=== PATIENT | female | born 1940 | race Caucasian/White ===

== ENCOUNTER 2016-03-30 11:32 | Outpatient (CLI) | payer MEDICARE | END 2016-03-30 11:33 | disposition home or self-care (01) | DX: G47.30 Sleep apnea, unspecified (principal); G47.8 Other sleep disorders; G47.10 Hypersomnia, unspecified; R06.83 Snoring | CPT/HCPCS: 99205; G0463 ==

== ENCOUNTER 2016-04-03 16:03 | Observation (INO) | payer MEDICARE ==
[2016-04-03] MEDS ORDERED: HYDROcod/ACETAM 5/325 MG TABLET PO PRN (19:04)
[2016-04-03] MEDS ORDERED: ALPRAZolam 0.25 MG TABLET PO PRN (19:04)
[2016-04-03] MEDS ORDERED: ACETAMINOPHEN 325 MG TABLET PO PRN (19:04)
[2016-04-03] MEDS ORDERED: SODIUM CHLORIDE FLUSH 0.9% 10 ML SYRINGE IVP PRN (19:04)
[2016-04-03] MEDS ORDERED: ONDANSETRON 4 MG/2 ML VIAL IVP PRN (19:04)
[2016-04-03] MEDS ORDERED: IOPAMIDOL-300 100 ML VIAL IVP ONE (19:55)
[2016-04-03] MEDS: ASPIRIN 325 MG TABLET PO SCH (20:10)
[2016-04-03] MEDS: LISINOPRIL 20 MG TABLET PO SCH ×2 (20:12→22:17)
[2016-04-03] MEDS ORDERED: ATORVASTATIN 40 MG TABLET PO SCH (21:00)
[2016-04-03] MEDS: INSULIN ASPART 300 UNIT/3 ML PEN SUBQ SCH (22:21)
[2016-04-03] MEDS: SODIUM CHLORIDE FLUSH 0.9% 10 ML SYRINGE IVP SCH (22:21)
[2016-04-03] MEDS: ATENOLOL 25 MG TABLET PO SCH (22:21)
[2016-04-04] MEDS: ATENOLOL 25 MG TABLET PO SCH (06:15)
[2016-04-04] MEDS: SODIUM CHLORIDE FLUSH 0.9% 10 ML SYRINGE IVP SCH (06:15)
[2016-04-04] MEDS ORDERED: PANTOPRAZOLE 40 MG TABLET PO SCH (07:00)
[2016-04-04] MEDS: LISINOPRIL 20 MG TABLET PO SCH (08:14)
[2016-04-04] MEDS: ASPIRIN 325 MG TABLET PO SCH (08:14)
[2016-04-04] MEDS: INSULIN ASPART 300 UNIT/3 ML PEN SUBQ SCH (08:15)
[2016-04-04] MEDS ORDERED: POLYETHYLENE GLYCOL 3350 17 GM PACKET PO SCH (09:00)
== END 2016-04-04 09:40 | disposition home or self-care (01) ==
DX: R20.0 Anesthesia of skin (principal); I10 Essential (primary) hypertension; E11.9 Type 2 diabetes mellitus without complications; E78.5 Hyperlipidemia, unspecified; I44.1 Atrioventricular block, second degree; I25.10 Atherosclerotic heart disease of native coronary artery without angina pectoris; E66.9 Obesity, unspecified; G47.33 Obstructive sleep apnea (adult) (pediatric); I25.2 Old myocardial infarction; Z95.0 Presence of cardiac pacemaker; Z95.5 Presence of coronary angioplasty implant and graft; Z68.37 Body mass index [BMI] 37.0-37.9, adult; Z79.84 Long term (current) use of oral hypoglycemic drugs; Z87.891 Personal history of nicotine dependence; Z66 Do not resuscitate
CPT/HCPCS: 36415; 70450; 70496; 80053; 80061; 83036; 83690; 85025; 85610; 93005; 93010; 93880; 99284; 99285; A9270; G0378; Q9967

== ENCOUNTER 2016-04-08 21:14 | Outpatient (CLI) | payer MEDICARE | END 2016-04-08 21:15 | disposition home or self-care (01) | DX: G47.33 Obstructive sleep apnea (adult) (pediatric) (principal) ==

== ENCOUNTER 2016-04-26 13:32 | Outpatient (CLI) | payer MEDICARE | END 2016-04-26 13:33 | disposition home or self-care (01) | DX: G47.33 Obstructive sleep apnea (adult) (pediatric) (principal) | CPT/HCPCS: 99213; G0463 ==

== ENCOUNTER 2016-04-28 22:30 | Outpatient (CLI) | payer MEDICARE | END 2016-04-28 22:31 | disposition home or self-care (01) | DX: Z53.9 Procedure and treatment not carried out, unspecified reason (principal) ==

== ENCOUNTER 2016-06-02 23:04 | Outpatient (CLI) | payer MEDICARE | END 2016-06-02 23:05 | disposition home or self-care (01) | DX: G47.33 Obstructive sleep apnea (adult) (pediatric) (principal); G47.61 Periodic limb movement disorder; Z68.37 Body mass index [BMI] 37.0-37.9, adult ==

== ENCOUNTER 2016-06-10 11:10 | Outpatient (CLI) | payer MEDICARE | END 2016-06-10 11:11 | disposition home or self-care (01) | DX: G47.33 Obstructive sleep apnea (adult) (pediatric) (principal); G47.61 Periodic limb movement disorder | CPT/HCPCS: 99215; G0463 ==

== ENCOUNTER 2016-07-08 11:20 | Outpatient (CLI) | payer MEDICARE | END 2016-07-08 11:21 | disposition home or self-care (01) | DX: G47.33 Obstructive sleep apnea (adult) (pediatric) (principal) | CPT/HCPCS: 99214; G0463 ==

== ENCOUNTER 2016-07-11 16:55 | Observation (INO) | payer MEDICARE ==
[2016-07-11] MEDS ORDERED: ASPIRIN CHEW 81 MG TABLET PO STA (17:28)
[2016-07-11] MEDS ORDERED: ASPIRIN CHEW 81 MG TABLET ONE (17:31)
[2016-07-11] MEDS ORDERED: IOPAMIDOL-300 100 ML VIAL IVP ONE (18:18)
[2016-07-11] MEDS ORDERED: ACETAMINOPHEN 325 MG TABLET PO STA (19:06)
[2016-07-11] MEDS ORDERED: ACETAMINOPHEN 325 MG TABLET PO ONE (19:10)
[2016-07-11] MEDS ORDERED: HYDROcod/ACETAM 5/325 MG TABLET PO PRN (19:54)
[2016-07-11] MEDS ORDERED: SODIUM CHLORIDE FLUSH 0.9% 10 ML SYRINGE IVP PRN (19:54)
[2016-07-11] MEDS ORDERED: ACETAMINOPHEN 325 MG TABLET PO PRN (19:54)
[2016-07-11] MEDS ORDERED: ONDANSETRON ODT 4 MG TABLET TL PRN (19:54)
[2016-07-11] MEDS ORDERED: ALPRAZolam 0.25 MG TABLET PO PRN (20:01)
[2016-07-11] MEDS ORDERED: metFORMIN 500 MG TABLET PO SCH (21:00)
[2016-07-11] MEDS ORDERED: NON FORMULARY MED (Simvastatin [Simvastatin] 40 MG) PO SCH (21:00)
[2016-07-11] MEDS ORDERED: ATORVASTATIN 10 MG TABLET PO SCH (21:00)
[2016-07-11] MEDS: ATENOLOL 25 MG TABLET PO SCH (21:43)
[2016-07-11] MEDS: LISINOPRIL 20 MG TABLET PO SCH (21:43)
[2016-07-11] MEDS: SODIUM CHLORIDE FLUSH 0.9% 10 ML SYRINGE IVP SCH (21:53)
[2016-07-11] MEDS ORDERED: SODIUM CHLORIDE 0.9% IV SCH (23:45)
[2016-07-11] MEDS ORDERED: SODIUM BICARBONATE IV SCH (23:45)
[2016-07-12] MEDS: SODIUM CHLORIDE FLUSH 0.9% 10 ML SYRINGE IVP SCH (04:10)
[2016-07-12] MEDS: ATENOLOL 25 MG TABLET PO SCH (05:44)
[2016-07-12] MEDS: LISINOPRIL 20 MG TABLET PO SCH (08:05)
[2016-07-12] MEDS ORDERED: ASPIRIN CHEW 81 MG TABLET PO SCH (09:00)
[2016-07-12] MEDS ORDERED: ISOSORBIDE MONONITRATE ER 30 MG TABLET PO SCH (09:00)
[2016-07-12] MEDS ORDERED: POLYETHYLENE GLYCOL 3350 17 GM PACKET PO SCH (09:00)
== END 2016-07-12 09:10 | disposition home or self-care (01) ==
DX: R07.89 Other chest pain (principal); I25.10 Atherosclerotic heart disease of native coronary artery without angina pectoris; Z95.5 Presence of coronary angioplasty implant and graft; I15.2 Hypertension secondary to endocrine disorders; E11.22 Type 2 diabetes mellitus with diabetic chronic kidney disease; N18.9 Chronic kidney disease, unspecified; G47.33 Obstructive sleep apnea (adult) (pediatric); E78.5 Hyperlipidemia, unspecified; E66.01 Morbid (severe) obesity due to excess calories; I44.1 Atrioventricular block, second degree; Z95.0 Presence of cardiac pacemaker; Z79.84 Long term (current) use of oral hypoglycemic drugs; Z79.82 Long term (current) use of aspirin; Z88.8 Allergy status to other drugs, medicaments and biological substances; Z68.36 Body mass index [BMI] 36.0-36.9, adult; Z86.73 Personal history of transient ischemic attack (TIA), and cerebral infarction without residual deficits; Z87.891 Personal history of nicotine dependence; Z66 Do not resuscitate; Z63.4 Disappearance and death of family member
CPT/HCPCS: 36415; 71020; 71275; 80048; 80053; 81001; 83690; 83880; 84484; 85025; 85610; 85730; 87086; 93005; 93010; 99284; 99285; A9270; G0378; Q9967

== ENCOUNTER 2016-07-15 08:56 | Outpatient (CLI) | payer MEDICARE | END 2016-07-15 08:57 | disposition home or self-care (01) | DX: I10 Essential (primary) hypertension (principal); E78.5 Hyperlipidemia, unspecified; E11.9 Type 2 diabetes mellitus without complications; G47.33 Obstructive sleep apnea (adult) (pediatric) ==

== ENCOUNTER 2016-08-02 16:08 | Outpatient (CLI) | payer MEDICARE | END 2016-08-02 16:09 | disposition short-term general hospital (02) | LOC: EMS 16:08 | PROVIDERS: ATTEND Surgery | DX: R07.9 Chest pain, unspecified (principal) | CPT/HCPCS: A0425; A0427 ==

== ENCOUNTER 2016-08-06 12:37 | Outpatient (CLI) | payer MEDICARE ==
[2016-08-06 18:46] LABS: ALBUMIN/GLOBULIN RATIO 1.4 (1.0-2.2); BILIRUBIN,TOTAL 0.4 mg/dL (0.2-1.0); CALCIUM 9.2 mg/dL (8.5-10.3); POTASSIUM 4.2 mmol/L (3.5-5.0); TOTAL PROTEIN 7.6 g/dL (6.7-8.2)
== END 2016-08-06 12:38 | disposition home or self-care (01) ==
LOC: LAB.F 12:37
PROVIDERS: ATTEND Physician Assistant Medical
DX: I10 Essential (primary) hypertension (principal)
CPT/HCPCS: 36415; 80053

== ENCOUNTER 2016-09-20 16:07 | Outpatient (CLI) | payer MEDICARE ==
[2016-09-20 18:11] LABS: BASOPHILS % (AUTO) 0.8 %; EOSINOPHILS # (AUTO) 0.8 10^3/uL (0.0-0.7); EOSINOPHILS % (AUTO) 12.4 %; HCT - HEMATOCRIT 39.9 % (37.0-47.0); HGB - HEMOGLOBIN 13.2 g/dL (12.0-16.0); LYMPHOCYTES # (AUTO) 1.9 10^3/uL (1.5-3.5); LYMPHOCYTES % (AUTO) 30.9 %; MEAN CORPUSCULAR HEMOGLOBIN 28.9 pg (27.0-31.0); MEAN CORPUSCULAR HGB CONC 33.1 g/dL (32.0-36.0); MEAN CORPUSCULAR VOLUME 87.4 fL (81.0-99.0); MEAN PLATELET VOLUME 8.5 fL (7.9-10.8); MONOCYTES # (AUTO) 0.7 10^3/uL (0.0-1.0); MONOCYTES % (AUTO) 11.2 %; NEUTROPHILS # (AUTO) 2.7 10^3/uL (1.5-6.6); NEUTROPHILS % (AUTO) 44.7 %; NUCLEATED RED BLOOD CELLS AUTO 0.1 /100WBC; RED BLOOD COUNT 4.56 10^6/uL (4.20-5.40); RED CELL DISTRIBUTION WIDTH 14.6 % (12.0-15.0); UNCORRECTED WHITE BLOOD COUNT 6.1 x10^3/uL; WHITE BLOOD COUNT 6.1 x10^3/uL (4.8-10.8)
[2016-09-20 18:39] LABS: ALBUMIN/GLOBULIN RATIO 1.1 (1.0-2.2); BILIRUBIN,TOTAL 1.1 mg/dL (0.2-1.0); CALCIUM 9.3 mg/dL (8.5-10.3); POTASSIUM 4.1 mmol/L (3.5-5.0); TOTAL PROTEIN 7.1 g/dL (6.7-8.2)
== END 2016-09-20 16:08 | disposition home or self-care (01) ==
LOC: LAB.F 16:07
PROVIDERS: ATTEND Physician Assistant Medical
DX: M62.81 Muscle weakness (generalized) (principal)
CPT/HCPCS: 36415; 80053; 82550; 84443; 85025

== ENCOUNTER 2016-09-22 08:00 | Outpatient (CLI) | payer MEDICARE ==
[2016-09-23 12:15] LABS: INR 1.2 (0.8-1.2); PT - PROTHROMBIN TIME 13.3 secs (9.9-12.6)
[2016-09-23 12:30] LABS: ALBUMIN/GLOBULIN RATIO 1.2 (1.0-2.2); BILIRUBIN,TOTAL 1.6 mg/dL (0.2-1.0); CALCIUM 9.4 mg/dL (8.5-10.3); CREATININE 1.1 mg/dL (0.4-1.0); TOTAL PROTEIN 6.9 g/dL (6.7-8.2)
[2016-09-24 14:51] LABS: TEST RESULT REPORT (())
== END 2016-09-22 08:01 | disposition home or self-care (01) ==
LOC: LAB.F 08:00
PROVIDERS: ATTEND Internal Medicine
DX: R94.5 Abnormal results of liver function studies (principal)
CPT/HCPCS: 36415; 80053; 81599; 85610; 86704; 86706; 86709; 86803; 87340; 87522

== ENCOUNTER 2016-10-04 07:54 | Outpatient (CLI) | payer MEDICARE ==
[2016-10-04 12:55] LABS: BILIRUBIN,TOTAL 1.2 mg/dL (0.2-1.0); CALCIUM 9.1 mg/dL (8.5-10.3); CREATININE 0.9 mg/dL (0.4-1.0); POTASSIUM 3.9 mmol/L (3.5-5.0); TOTAL PROTEIN 7.2 g/dL (6.7-8.2)
== END 2016-10-04 07:55 | disposition home or self-care (01) ==
LOC: LAB.F 07:54
PROVIDERS: ATTEND Internal Medicine
DX: R94.5 Abnormal results of liver function studies (principal)
CPT/HCPCS: 36415; 80053

== ENCOUNTER 2016-10-13 08:36 | Outpatient (CLI) | payer MEDICARE ==
[2016-10-13 12:03] LABS: BILIRUBIN,URINE NEGATIVE (NEGATIVE)
[2016-10-13 12:12] LABS: UR CULTURE IF IND NOT INDICATED; WBC,URINE 0-3 /HPF (0-5)
== END 2016-10-13 08:37 | disposition home or self-care (01) ==
LOC: LAB.F 08:36
PROVIDERS: ATTEND Physician Assistant Medical
DX: N39.0 Urinary tract infection, site not specified (principal)
CPT/HCPCS: 81001; 87086

== ENCOUNTER 2016-10-29 08:00 | Outpatient (CLI) | payer MEDICARE ==
[2016-10-29 17:47] LABS: BILIRUBIN,URINE NEGATIVE (NEGATIVE)
[2016-10-29 18:01] LABS: UR CULTURE IF IND INDICATED
== END 2016-10-29 08:01 | disposition home or self-care (01) ==
LOC: LAB.F 08:00
PROVIDERS: ATTEND Physician Assistant Medical
DX: N39.0 Urinary tract infection, site not specified (principal)
CPT/HCPCS: 81001; 87086

== ENCOUNTER 2016-11-05 07:41 | Outpatient (CLI) | payer MEDICARE ==
[2016-11-05 12:59] LABS: BILIRUBIN,URINE NEGATIVE (NEGATIVE)
[2016-11-05 13:05] LABS: UR CULTURE IF IND INDICATED
[2016-11-05 15:16] LABS: ALBUMIN/GLOBULIN RATIO 1.3 (1.0-2.2); BILIRUBIN,TOTAL 0.9 mg/dL (0.2-1.0); CREATININE 0.8 mg/dL (0.4-1.0); POTASSIUM 3.8 mmol/L (3.5-5.0)
== END 2016-11-05 07:42 | disposition home or self-care (01) ==
LOC: LAB.F 07:41
PROVIDERS: ATTEND Physician Assistant Medical
DX: N39.0 Urinary tract infection, site not specified (principal); R94.5 Abnormal results of liver function studies
CPT/HCPCS: 36415; 80053; 81001; 87086

== ENCOUNTER 2017-01-04 00:40 | Emergency (ER) | payer MEDICARE ==
[2017-01-04 01:15] LABS: BASOPHILS # (AUTO) 0.1 10^3/uL (0.0-0.1); BASOPHILS % (AUTO) 1.1 %; EOSINOPHILS # (AUTO) 0.2 10^3/uL (0.0-0.7); EOSINOPHILS % (AUTO) 3.4 %; HCT - HEMATOCRIT 44.1 % (37.0-47.0); HGB - HEMOGLOBIN 14.5 g/dL (12.0-16.0); LYMPHOCYTES # (AUTO) 2.1 10^3/uL (1.5-3.5); LYMPHOCYTES % (AUTO) 36.1 %; MEAN CORPUSCULAR HEMOGLOBIN 28.8 pg (27.0-31.0); MEAN CORPUSCULAR HGB CONC 32.8 g/dL (32.0-36.0); MEAN CORPUSCULAR VOLUME 87.8 fL (81.0-99.0); MEAN PLATELET VOLUME 8.2 fL (7.9-10.8); MONOCYTES # (AUTO) 0.6 10^3/uL (0.0-1.0); MONOCYTES % (AUTO) 10.8 %; NEUTROPHILS # (AUTO) 2.8 10^3/uL (1.5-6.6); NEUTROPHILS % (AUTO) 48.6 %; RED BLOOD COUNT 5.02 10^6/uL (4.20-5.40); RED CELL DISTRIBUTION WIDTH 13.8 % (12.0-15.0); UNCORRECTED WHITE BLOOD COUNT 5.8 x10^3/uL; WHITE BLOOD COUNT 5.8 x10^3/uL (4.8-10.8)
[2017-01-04 01:29] LABS: ALBUMIN/GLOBULIN RATIO 1.2 (1.0-2.2); BILIRUBIN,TOTAL 0.6 mg/dL (0.2-1.0); CALCIUM 9.5 mg/dL (8.5-10.3); CREATININE 0.9 mg/dL (0.4-1.0); POTASSIUM 3.8 mmol/L (3.5-5.0)
--- NOTE | 2017-01-04 01:39 | XRAY Preliminary Report ---
Exam: XR CHEST 1 VIEW IMPRESSION: No acute process seen in the chest. [facility] SITE ID: [id number]
--- NOTE | 2017-01-04 01:42 | XRAY Report ---
EXAM: CHEST RADIOGRAPHY EXAM DATE: 01/04/2017 01:27 AM. CLINICAL HISTORY: Chest pain. COMPARISON: 07/11/2016 x-ray and CT. TECHNIQUE: 1 view. FINDINGS: Lungs/Pleura: No focal opacities evident. No pleural effusion. No pneumothorax. Mediastinum: Within exam limitations, the cardiomediastinal contour is normal. Other: Stable left pacemaker. IMPRESSION: No acute process seen in the chest. [facility] Referring Provider Line: [phone] SITE ID: [id number]
--- NOTE | 2017-01-04 01:57 | ED Physician Documentation ---
PD HPI CHEST PAIN - Stated complaint Stated Complaint: KACEY SHOULDER BLADE PAIN - Chief complaint Chief Complaint: Cardiac - History obtained from History obtained from: Patient - History of Present Illness Timing - onset: How many hours ago (3-4) Timing - onset during: Rest (lying in bed) Timing - duration: Hours Timing - details: Abrupt onset, Constant, Waxing and waning Pain level now: 6 Quality: Pain Location: Other (band-like around lower chest and upper abdomen) Radiation: Back Improved by: Nothing Worsened by: No: Exertion, Inspiration, Eating, Movement, Palpation, Position Associated symptoms: Nausea. No: Shortness of air, Diaphoresis, Vomiting, Palpitations Similar symptoms before: Has not had sx before Recently seen: Not recently seen Review of Systems Constitutional: reports: Reviewed and negative Cardiac: reports: Chest pain / pressure. denies: Palpitations, Pedal edema, Calf pain Respiratory: reports: Reviewed and negative GI: reports: Nausea. denies: Abdominal Pain, Vomiting : reports: Frequency. 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 Cardiovascular: Coronary stent, Pacemaker - Present Medications Home Medications: Ambulatory Orders Medication Instructions Recorded Confirmed Atenolol 25 mg PO TID 07/28/12 01/04/17 Lisinopril [Prinivil] 20 mg PO BID 07/28/12 01/04/17 ALPRAZolam [Xanax] 0.25 mg TID PRN 04/03/16 01/04/17 Aspirin Chewable [[place] 81 mg PO DAILY 07/11/16 01/04/17 Aspirin] Sertraline [Zoloft] 25 mg ORAL DAILY 01/04/17 01/04/17 - Allergies Allergies/Adverse Reactions: Allergies Allergy/AdvReac Type Severity Reaction Status Date / Time nitroglycerin AdvReac Unknown severe Verified 04/03/16 16:16 hypotension - Social History Does the pt smoke?: No Smoking Status: Never smoker Does the pt drink ETOH?: No Does the pt have substance abuse?: No - Immunizations Immunizations are current?: Yes - POLST Patient has POLST: No PD ED PE NORMAL - Vitals Vital signs reviewed: Yes - General General: Alert and oriented X 3, No acute distress, Well developed/nourished - Cardiac Cardiac: RRR, No murmur, No gallop, No rub - Respiratory Respiratory: No respiratory distress, Clear bilaterally - Abdomen Abdomen: Soft, Non distended - Back Back: No CVA TTP - Derm Derm: Normal color, Warm and dry, No rash - Extremities Extremities: No edema - Neuro Neuro: Alert and oriented X 3 PD ED PE EXPANDED - Abdomen Abdomen: Tender to palpation (mild epigastric tenderness to deep palpation). No : Rebound, Guarding, Mass Results - Vitals Vitals: Vital Signs - 24 hr 01/04/17 01/04/17 01/04/17 00:47 01:15 01:40 Temperature 36.3 C L Heart Rate 63 60 Respiratory 18 16 Rate Blood Pressure 211/107 H 156/89 H 159/89 H O2 Saturation 99 95 01/04/17 01/04/17 01/04/17 03:02 04:47 04:52 Temperature Heart Rate 60 60 Respiratory 20 20 Rate Blood Pressure 186/89 H 156/92 H O2 Saturation 95 95 Oxygen O2 Source Room air - EKG (time done) No standard instances Rate: Rate (enter#) (60) Rhythm: Paced (atrial) [place]: Normal Intervals: Normal [place] QRS: Normal Ischemia: Normal ST segments - Labs Labs: Laboratory Tests 01/04/17 01/04/17 01/04/17 01:00 01:00 01:00 WBC 5.8 RBC 5.02 Hgb 14.5 Hct 44.1 MCV 87.8 MCH 28.8 MCHC 32.8 RDW 13.8 Plt Count 182 MPV 8.2 Neut # 2.8 Lymph # 2.1 [place] # 0.6 Eos # 0.2 Baso # 0.1 Absolute Nucleated RBC 0.00 Nucleated RBC % 0.0 Sodium 135 Potassium 3.8 Chloride 97 L Carbon Dioxide 26 Anion Gap 12.0 BUN 13 Creatinine 0.9 Estimated GFR (MDRD) 61 L Glucose 105 H Calcium 9.5 Total Bilirubin 0.6 AST 68 H ALT 71 H Alkaline Phosphatase 79 Troponin I < 0.04 Total Protein 8.0 Albumin 4.4 Globulin 3.6 Albumin/Globulin Ratio 1.2 Lipase 42 - Rads (name of study) chest xray Radiology: Prelim report reviewed, See rad report abd. US Radiology: Prelim report reviewed, See rad report PD MEDICAL DECISION MAKING - ED course Complexity details: reviewed results, re-evaluated patient, considered differential, d/w patient ED course: nondiagnostic test results. results d/w patient, including mildly elevated LFTs and abnormal appearance of liver on US (neither of which are likely to explain symptoms). she reported no relief with toradol, but declined any other medications in ED and as rx. will return if worse in any way and will pursue follow up with her doctor Departure - Departure Disposition: 01 Home, Self Care Clinical Impression: Chest pain Qualifiers: Chest pain type: unspecified Qualified Code(s): R07.9 - Chest pain, unspecified Abdominal pain Qualifiers: Abdominal location: epigastric Qualified Code(s): R10.13 - Epigastric pain Condition: Good Instructions: ED Abdominal Pain Unkn Cause, ED Chest Pain Atypical Unkn Cause Follow-Up: Hodan Murdock PA-C [Primary Care Provider] - Discharge Date/Time: 01/04/17 05:09
[2017-01-04] MEDS ORDERED: KETOROLAC 60 MG/2 ML VIAL IVP STA (03:06)
[2017-01-04] MEDS ORDERED: KETOROLAC 30 MG/ML VIAL ONE (03:22)
--- NOTE | 2017-01-04 04:45 | Ultrasound Preliminary Report ---
Exam: US ABDOMEN LIMITED IMPRESSION: 1. Gallbladder appears normal. 2. Suspect chronic liver disease. [facility] SITE ID: [id number]
--- NOTE | 2017-01-04 04:47 | Ultrasound Report ---
EXAM: ABDOMEN ULTRASOUND LIMITED, RUQ EXAM DATE: 01/04/2017 04:26 AM. CLINICAL HISTORY: Abdominal pain. COMPARISON: 08/10/2012. TECHNIQUE: Real-time scanning was performed with static images obtained. FINDINGS: Liver: Echogenic and coarse without gross focal abnormality seen. Main portal vein flow: Hepatopetal. Gallbladder: Normal. No stones, wall thickening, or sonographic Rawls's sign. Biliary System: CBD measures 4 mm. No intrahepatic or extrahepatic ductal dilatation. Other: Visualized portions of the right kidney are unremarkable. IMPRESSION: 1. Gallbladder appears normal. 2. Suspect chronic liver disease. [facility] Referring Provider Line: [phone] SITE ID: [id number]
[2017-01-04 04:53] VITALS: BP 156/92
== END 2017-01-04 05:09 | disposition home or self-care (01) ==
LOC: ED 00:40
DX: R07.9 Chest pain, unspecified (principal); I10 Essential (primary) hypertension; I25.2 Old myocardial infarction; E11.9 Type 2 diabetes mellitus without complications; Z79.82 Long term (current) use of aspirin; Z95.0 Presence of cardiac pacemaker; Z95.5 Presence of coronary angioplasty implant and graft
CPT/HCPCS: 36415; 71010; 76705; 80053; 83690; 84484; 85025; 93005; 96374; 99283; 99284

== ENCOUNTER 2017-05-04 08:19 | Outpatient (CLI) | payer MEDICARE ==
[2017-05-04 12:16] LABS: ALBUMIN/GLOBULIN RATIO 1.2 (1.0-2.2); BILIRUBIN,TOTAL 0.6 mg/dL (0.2-1.0); CALCIUM 9.3 mg/dL (8.5-10.3); CREATININE 0.8 mg/dL (0.4-1.0); TOTAL PROTEIN 7.4 g/dL (6.7-8.2)
== END 2017-05-04 08:20 | disposition home or self-care (01) ==
LOC: LAB.F 08:19
PROVIDERS: ATTEND Physician Assistant Medical
DX: I10 Essential (primary) hypertension (principal)
CPT/HCPCS: 36415; 80053

== ENCOUNTER 2017-08-17 10:28 | Outpatient (CLI) | payer MEDICARE ==
[2017-08-17 17:21] LABS: BASOPHILS % (AUTO) 0.5 %; EOSINOPHILS # (AUTO) 0.1 10^3/uL (0.0-0.7); EOSINOPHILS % (AUTO) 2.8 %; HGB - HEMOGLOBIN 13.9 g/dL (12.0-16.0); LYMPHOCYTES # (AUTO) 1.7 10^3/uL (1.5-3.5); LYMPHOCYTES % (AUTO) 33.4 %; MEAN CORPUSCULAR HEMOGLOBIN 29.2 pg (27.0-31.0); MEAN CORPUSCULAR HGB CONC 32.8 g/dL (32.0-36.0); MEAN CORPUSCULAR VOLUME 88.9 fL (81.0-99.0); MEAN PLATELET VOLUME 8.3 fL (7.9-10.8); MONOCYTES # (AUTO) 0.4 10^3/uL (0.0-1.0); MONOCYTES % (AUTO) 8.5 %; NEUTROPHILS # (AUTO) 2.8 10^3/uL (1.5-6.6); NEUTROPHILS % (AUTO) 54.8 %; PLT - PLATELET COUNT 252 10^3/uL (130-450); RED BLOOD COUNT 4.77 10^6/uL (4.20-5.40); RED CELL DISTRIBUTION WIDTH 13.5 % (12.0-15.0)
[2017-08-17 18:01] LABS: ALBUMIN/GLOBULIN RATIO 1.2 (1.0-2.2); ALKALINE PHOSPHATASE 58 IU/L (42-121); ALT ALANINE AMINOTRANSFERASE 18 IU/L (10-60); AST ASPARTATE AMINOTRANSFERASE 26 IU/L (10-42); BUN - BLOOD UREA NITROGEN 18 mg/dL (6-20); CHOL/HDL RATIO 7.5 (<4.4); CHOLESTEROL 314 mg/dL; CREATININE 0.8 mg/dL (0.4-1.0); GFR - MDRD 70 (>89); HDL CHOLESTEROL 42 mg/dL; LDL CHOLESTEROL,CALCULATED 242 mg/dL; LDL/HDL RATIO 5.8 (<4.4); TOTAL PROTEIN 7.4 g/dL (6.7-8.2); VLDL CHOLESTEROL 30 mg/dL
[2017-08-17 18:04] LABS: CALCIUM 9.3 mg/dL (8.5-10.3); CARBON DIOXIDE - CO2 29 mmol/L (21-32); CHLORIDE 95 mmol/L (101-111); GLUCOSE 100 mg/dL (70-100); SODIUM 131 mmol/L (135-145)
[2017-08-17 18:55] LABS: HB2 TOTAL 15.3 g/dL; HEMOGLOBIN A1C 0.64 g/dL
== END 2017-08-17 10:29 | disposition home or self-care (01) ==
LOC: LAB.F 10:28
PROVIDERS: ATTEND Physician Assistant Medical
DX: I10 Essential (primary) hypertension (principal); E11.9 Type 2 diabetes mellitus without complications; E78.5 Hyperlipidemia, unspecified
CPT/HCPCS: 36415; 80053; 80061; 83036; 83721; 85025

== ENCOUNTER 2017-09-23 08:57 | Outpatient (CLI) | payer MEDICARE ==
[2017-09-23 17:33] LABS: ALBUMIN 3.8 g/dL (3.2-5.5); ALBUMIN/GLOBULIN RATIO 1.2 (1.0-2.2); BILIRUBIN,TOTAL 0.9 mg/dL (0.2-1.0); CALCIUM 9.2 mg/dL (8.5-10.3); CREATININE 0.9 mg/dL (0.4-1.0)
== END 2017-09-23 08:58 | disposition home or self-care (01) ==
LOC: LAB.F 08:57
PROVIDERS: ATTEND Physician Assistant Medical
DX: Z51.81 Encounter for therapeutic drug level monitoring (principal); Z79.899 Other long term (current) drug therapy
CPT/HCPCS: 36415; 80053

== ENCOUNTER 2017-11-20 18:57 | Emergency (ER) | payer MEDICARE ==
[2017-11-20] MEDS ORDERED: ACETAMINOPHEN 325 MG TABLET PO STA (19:20)
--- NOTE | 2017-11-20 19:21 | ED Physician Documentation ---
PD HPI BACK PAIN - Stated complaint Stated Complaint: BILAT LEG NUMBNESS - Chief complaint Chief Complaint: Back Pain - History obtained from History obtained from: Patient, Family - History of Present Illness Timing - onset: Other (76-year-old woman with history of right-sided sciatica presents with 2 weeks of increasing but intermittent and migratory low back pain with bilateral tingling and numbness of both extremities not affecting the saddle area or having any bowel or bladder function issues. There is no associated fever. She had what felt like a very bad charley horse in her left leg last night which kept her from sleeping. 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 Cardiovascular: Coronary stent, Pacemaker - Present Medications Home Medications: Ambulatory Orders Medication Instructions Recorded Confirmed Atenolol 25 mg PO TID 07/28/12 01/04/17 Lisinopril [Prinivil] 20 mg PO BID 07/28/12 01/04/17 ALPRAZolam [Xanax] 0.25 mg TID PRN 04/03/16 01/04/17 Aspirin Chewable [[place] 81 mg PO DAILY 07/11/16 01/04/17 Aspirin] Sertraline [Zoloft] 25 mg ORAL DAILY 01/04/17 01/04/17 Nitrofurantoin Monohyd/M-Cryst 100 mg PO BID #10 capsule 11/20/17 [Macrobid 100 mg Capsule] predniSONE [Deltasone] 20 mg PO [id number] #15 tab 11/20/17 - Allergies Allergies/Adverse Reactions: Allergies Allergy/AdvReac Type Severity Reaction Status Date / Time nitroglycerin AdvReac Unknown severe Verified 11/20/17 19:06 hypotension - Social History Does the pt smoke?: No Smoking Status: Never smoker Does the pt drink ETOH?: No Does the pt have substance abuse?: No - Immunizations Immunizations are current?: Yes - POLST Patient has POLST: No PD ED PE NORMAL - Vitals Vital signs reviewed: Yes - General General: Alert and oriented X 3, No acute distress - HEENT HEENT: PERRL, EOMI - Neck Neck: Supple, no meningeal sign, No bony TTP - Abdomen Abdomen: Normal bowel sounds, Soft, Non tender - Back Back: No CVA TTP, No spinal TTP - Extremities Extremities: Other (The patient has equal and normal Achilles and patellar reflexes bilaterally. Normal sensation in all areas of the legs. Patient denies saddle anesthesia. Normal strength in flexion-extension at the ankles, knees, and flexion of the hips.) - Neuro Neuro: Alert and oriented X 3, Normal speech Results - Vitals Vitals: Vital Signs - 24 hr 11/20/17 11/20/17 19:03 22:06 Temperature 36.2 C L 36.5 C Heart Rate 76 65 Respiratory 16 15 Rate Blood Pressure 185/87 H 140/92 H O2 Saturation 99 100 Oxygen O2 Source Room air - Labs Labs: Laboratory Tests 11/20/17 11/20/17 11/20/17 19:20 19:25 19:50 WBC 6.4 RBC 4.31 Hgb 13.0 Hct 38.3 MCV 89.0 MCH 30.2 MCHC 33.9 RDW 13.4 Plt Count 224 MPV 7.2 L Neut # (Auto) 3.5 Lymph # (Auto) 2.1 [place] # (Auto) 0.5 Eos # (Auto) 0.2 Baso # (Auto) 0.1 Absolute Nucleated RBC 0.00 Nucleated RBC % 0.1 Sodium 131 L Potassium 3.8 Chloride 96 L Carbon Dioxide 26 Anion Gap 9.0 BUN 20 Creatinine 0.9 Estimated GFR (MDRD) 61 L Glucose 110 H Calcium 9.7 Total Bilirubin 0.5 AST 28 ALT 18 Alkaline Phosphatase 56 Total Protein 7.7 Albumin 4.4 Globulin 3.3 Albumin/Globulin Ratio 1.3 Lipase 39 Urine Color YELLOW Urine Clarity CLEAR Urine pH 7.5 Ur Specific [place] 1.010 Urine Protein NEGATIVE Urine Glucose (UA) NEGATIVE Urine Ketones NEGATIVE Urine Occult Blood NEGATIVE Urine Nitrite NEGATIVE Urine Bilirubin NEGATIVE Urine Urobilinogen 0.2 (NORMAL) Ur Leukocyte Esterase TRACE H Urine RBC 6-10 H Urine WBC 11-25 H Urine WBC Clumps PRESENT Ur Squamous Epith Cells FEW Squamous Urine Bacteria Moderate H Ur Microscopic Review INDICATED Urine Culture Comments INDICATED - Rads (name of study) L spine CT Radiology: EMP read contemporaneously (Advanced multilevel DDD and facet arthropathy with severe stenosis at L2-L3 and L3-L4 and mild to moderate multilevel bony neural foraminal narrowing.) PD MEDICAL DECISION MAKING - Sepsis Event Vital Signs: Vital Signs - 24 hr 11/20/17 11/20/17 19:03 22:06 Temperature 36.2 C L 36.5 C Heart Rate 76 65 Respiratory 16 15 Rate Blood Pressure 185/87 H 140/92 H O2 Saturation 99 100 Oxygen O2 Source Room air Departure - Departure Disposition: 01 Home, Self Care Clinical Impression: Cystitis Spinal stenosis Qualifiers: Spinal region: lumbar Neurogenic claudication status: with neurogenic claudication Qualified Code(s): M48.062 - Spinal stenosis, lumbar region with neurogenic claudication Condition: Good Record reviewed to determine appropriate education?: Yes Prescriptions: Nitrofurantoin Monohyd/M-Cryst [Macrobid 100 mg Capsule] 100 mg PO BID #10 capsule predniSONE [Deltasone] 20 mg PO [id number] #15 tab Comments: Followup with a spinal surgeon, perhaps Gerald Santana in [place], his phone is [phone] Your blood pressure was elevated today on check into the emergency department. This does not mean that you have hypertension, it is a common phenomenon to come to the emergency department and have elevated blood pressure. I recommend that you see your primary care physician within the week to have it rechecked when you are feeling better. Discharge Date/Time: 11/20/17 22:14
[2017-11-20 19:33] LABS: BILIRUBIN,URINE NEGATIVE (NEGATIVE); GLUCOSE, URINE (UA) NEGATIVE (NEGATIVE); KETONES,URINE (UA) NEGATIVE (NEGATIVE); LEUKOCYTE ESTERASE, URINE TRACE (NEGATIVE); NITRITE,URINE NEGATIVE (NEGATIVE); OCCULT BLOOD,URINE NEGATIVE (NEGATIVE); PH,URINE 7.5 PH (5.0-7.5); PROTEIN,URINE NEGATIVE (NEGATIVE); UROBILINOGEN,URINE 0.2 (NORMAL) E.U./dL (NORMAL)
[2017-11-20 19:36] LABS: CLARITY,URINE CLEAR (CLEAR)
[2017-11-20 19:41] LABS: BACTERIA,URINE Moderate /HPF (None Seen); SQUAMOUS EPITHELIAL CELL,UR FEW Squamous (<= Few); WBC CLUMPS,URINE PRESENT
[2017-11-20 20:05] LABS: BASOPHILS # (AUTO) 0.1 10^3/uL (0.0-0.1); BASOPHILS % (AUTO) 0.8 %; EOSINOPHILS # (AUTO) 0.2 10^3/uL (0.0-0.7); EOSINOPHILS % (AUTO) 3.3 %; LYMPHOCYTES # (AUTO) 2.1 10^3/uL (1.5-3.5); LYMPHOCYTES % (AUTO) 33.5 %; MEAN CORPUSCULAR HEMOGLOBIN 30.2 pg (27.0-31.0); MEAN CORPUSCULAR HGB CONC 33.9 g/dL (32.0-36.0); MEAN PLATELET VOLUME 7.2 fL (7.9-10.8); MONOCYTES # (AUTO) 0.5 10^3/uL (0.0-1.0); MONOCYTES % (AUTO) 7.6 %; NEUTROPHILS # (AUTO) 3.5 10^3/uL (1.5-6.6); NEUTROPHILS % (AUTO) 54.8 %; PLT - PLATELET COUNT 224 10^3/uL (130-450); RED BLOOD COUNT 4.31 10^6/uL (4.20-5.40); RED CELL DISTRIBUTION WIDTH 13.4 % (12.0-15.0); WHITE BLOOD COUNT 6.4 x10^3/uL (4.8-10.8)
[2017-11-20 20:18] LABS: ALBUMIN 4.4 g/dL (3.2-5.5); ALBUMIN/GLOBULIN RATIO 1.3 (1.0-2.2); BILIRUBIN,TOTAL 0.5 mg/dL (0.2-1.0); CALCIUM 9.7 mg/dL (8.5-10.3); CREATININE 0.9 mg/dL (0.4-1.0); TOTAL PROTEIN 7.7 g/dL (6.7-8.2)
--- NOTE | 2017-11-20 21:42 | CT Report ---
Reason: back pain w bilat neuropathy Procedure Date: 11/20/2017 Accession Number: [id number] / [id number] Procedure: CT - Lumbar Spine W/O CPT Code: FULL RESULT: EXAM: CT LUMBAR SPINE WITHOUT CONTRAST EXAM DATE: 11/20/2017 08:49 PM. CLINICAL HISTORY: Back pain with bilateral neuropathy. COMPARISONS: CT abdomen/pelvis 08/10/2012. TECHNIQUE: Thin-section axial images were acquired of the lumbar spine from T12 to S1 without contrast. Post-processing: Coronal and sagittal reformats. Other: None. In accordance with CT protocol optimization, one or more of the following dose reduction techniques were utilized for this exam: automated exposure control, adjustment of mA and/or KV based on patient size, or use of iterative reconstructive technique. FINDINGS: Alignment: Mild left convex measuring approximately 7 degrees centered at L4-L5. Grade 1 retrolisthesis of L1 on L2 measuring 4 mm. Bones: Five rxn-sah-nmldmui lumbar vertebral bodies are present. No fractures or bone lesions. Disk Levels/Facets: T12-L1: Moderate disk height loss. Disk osteophyte complex and mild right facet arthropathy causing mild bony central canal stenosis. No significant bony neural foraminal narrowing. L1-L2: Moderate disk height loss. Disk osteophyte complex and mild bilateral facet arthropathy superimposed on grade 1 retrolisthesis causing moderate bony central canal stenosis and mild bilateral bony neural foraminal narrowing. L2-L3: Moderate disk height loss. Disk osteophyte complex, moderate bilateral facet arthropathy, and ligamentum flavum hypertrophy causing severe bony central canal stenosis and moderate left and mild right bony neural foraminal narrowing. L3-L4: Mild disk height loss. Disk osteophyte complex, moderate to severe bilateral facet arthropathy, and ligament of flavum hypertrophy causing severe bony central canal stenosis and mild bilateral bony neural foraminal narrowing. L4-L5: Moderate to severe disk height loss. Disk osteophyte complex, moderate right and mild left facet arthropathy, and ligamentum flavum hypertrophy causing moderate to severe bony central canal stenosis and mild bilateral bony neural foraminal narrowing. L5-S1: Severe disk height loss. Disk osteophyte complex and moderate to severe bilateral facet arthropathy causing mild bony central canal stenosis and moderate bilateral bony neural foraminal narrowing. Other: Extensive atherosclerotic calcifications within the aorta and visualized iliac arteries. IMPRESSION: 1. Advanced multilevel degenerative disk disease and facet arthropathy, as detailed above, with associated severe bony central canal stenosis at L2-L3 and L3-L4 and vyqt-mm-mlsdexly multilevel bony neural foraminal narrowing. 2. No acute bony abnormality. [facility]
[2017-11-20 22:14] VITALS: BP 140/92
== END 2017-11-20 22:14 | disposition home or self-care (01) ==
LOC: ED 18:57
DX: M51.36 Other intervertebral disc degeneration, lumbar region (principal); M48.062 Spinal stenosis, lumbar region with neurogenic claudication; N30.90 Cystitis, unspecified without hematuria; I10 Essential (primary) hypertension; E11.9 Type 2 diabetes mellitus without complications; Z79.82 Long term (current) use of aspirin
CPT/HCPCS: 36415; 72131; 80053; 81001; 83690; 85025; 87086; 99283; A9270; 81003

== ENCOUNTER 2017-12-20 08:26 | Outpatient (CLI) | payer MEDICARE ==
[2017-12-20 18:48] LABS: ALBUMIN 3.9 g/dL (3.2-5.5); ALBUMIN/GLOBULIN RATIO 1.2 (1.0-2.2); ALKALINE PHOSPHATASE 47 IU/L (42-121); ALT ALANINE AMINOTRANSFERASE 19 IU/L (10-60); AST ASPARTATE AMINOTRANSFERASE 23 IU/L (10-42); BILIRUBIN,TOTAL 0.7 mg/dL (0.2-1.0); BUN - BLOOD UREA NITROGEN 18 mg/dL (6-20); CALCIUM 9.1 mg/dL (8.5-10.3); CARBON DIOXIDE - CO2 28 mmol/L (21-32); CHLORIDE 96 mmol/L (101-111); CHOL/HDL RATIO 3.6 (<4.4); CHOLESTEROL 172 mg/dL; CREATININE 0.9 mg/dL (0.4-1.0); GFR - MDRD 61 (>89); GLUCOSE 119 mg/dL (70-100); HDL CHOLESTEROL 48 mg/dL; LDL CHOLESTEROL,CALCULATED 105 mg/dL; LDL/HDL RATIO 2.2 (<4.4); SODIUM 132 mmol/L (135-145); TOTAL PROTEIN 7.1 g/dL (6.7-8.2); VLDL CHOLESTEROL 19 mg/dL
== END 2017-12-20 08:27 | disposition home or self-care (01) ==
LOC: LAB.F 08:26
PROVIDERS: ATTEND Physician Assistant Medical
DX: E78.5 Hyperlipidemia, unspecified (principal); Z51.81 Encounter for therapeutic drug level monitoring; Z79.899 Other long term (current) drug therapy
CPT/HCPCS: 36415; 80053; 80061; 83721

== ENCOUNTER 2018-05-30 08:52 | Emergency (ER) | payer MEDICARE ==
[2018-05-30] MEDS ORDERED: oxyCODONE 5 MG TABLET PO STA (09:51)
[2018-05-30] MEDS ORDERED: CYCLOBENZAPRINE 10 MG TABLET PO STA (09:51)
--- NOTE | 2018-05-30 09:56 | ED Physician Documentation ---
History of Present Illness - Stated complaint Stated Complaint: LT SIDE HIP PX - Chief complaint Chief Complaint: Ext Problem - History obtained from History obtained from: Patient, Family - History of Present Illness Timing: How many days ago (3) Pain level max: 7 Pain level now: 5 - Additonal information Additional information: L hip and low back pain x 3 days. Worse with movement and better with rest. Took Motrin without relief. Does not recall any injury. No fevers. No loss of bowel or bladder control. Nonradiating. No numbness or tingling. 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 Cardiovascular: Coronary stent, Pacemaker - Present Medications Home Medications: Ambulatory Orders Medication Instructions Recorded Confirmed Atenolol 25 mg PO TID 07/28/12 01/04/17 Lisinopril [Prinivil] 20 mg PO BID 07/28/12 01/04/17 ALPRAZolam [Xanax] 0.25 mg TID PRN 04/03/16 01/04/17 Aspirin Chewable [[place] 81 mg PO DAILY 07/11/16 01/04/17 Aspirin] Sertraline [Zoloft] 25 mg ORAL DAILY 01/04/17 01/04/17 Nitrofurantoin Monohyd/M-Cryst 100 mg PO BID #10 capsule 11/20/17 [Macrobid 100 mg Capsule] predniSONE [Deltasone] 20 mg PO [id number] #15 tab 11/20/17 Cyclobenzaprine [Flexeril] 10 mg PO TID PRN #20 tablet 05/30/18 oxyCODONE [Roxicodone] 5 mg PO Q4-6H PRN #10 tablet 05/30/18 - Allergies Allergies/Adverse Reactions: Allergies Allergy/AdvReac Type Severity Reaction Status Date / Time nitroglycerin AdvReac Unknown severe Verified 05/30/18 09:38 hypotension - Social History Does the pt smoke?: No Smoking Status: Never smoker Does the pt drink ETOH?: No Does the pt have substance abuse?: No - Immunizations Immunizations are current?: Yes - POLST Patient has POLST: No PD ED PE NORMAL - Vitals Vital signs reviewed: Yes - General General: Alert and oriented X 3, No acute distress, Well developed/nourished - HEENT HEENT: PERRL, Moist mucous membranes - Neck Neck: Supple, no meningeal sign - Cardiac Cardiac: RRR, Strong equal pulses - Respiratory Respiratory: No respiratory distress, Clear bilaterally - Abdomen Abdomen: Soft, Non tender, Non distended - Back Back: No spinal TTP, Other (Paraspinal spasm left low lumbar.) - Derm Derm: Warm and dry - Extremities Extremities: No deformity, No tenderness to palpate, Other (pain with ROM of the L hip. NVI.) - Neuro Neuro: Alert and oriented X 3, No motor deficit, No sensory deficit - Psych Psych: Normal mood, Normal affect Results - Vitals Vitals: Vital Signs - 24 hr 05/30/18 05/30/18 09:36 10:15 Temperature 36.5 C Heart Rate 75 67 Respiratory 16 18 Rate Blood Pressure 133/85 H 134/78 H O2 Saturation 99 98 Oxygen O2 Source Room air PD MEDICAL DECISION MAKING - ED course Complexity details: reviewed old records, re-evaluated patient, considered differential, d/w patient, d/w family ED course: 77-year-old female presents to the emergency department with left-sided back and hip pain. No trauma. No bony tenderness. Her recent L spine CT showed degenerative disc disease, canal stenosis. Likely that this is related to her current findings. Will trial her on muscle relaxants and pain medication for home. She has no evidence of cauda equina, epidural abscess, fractures. Patient counseled regarding signs and symptoms for which I believe and urgent re-evaluation would be necessary. Patient with good understanding of and agreement to plan and is comfortable going home at this time This document was made in part using voice recognition software. While efforts are made to proofread this document, sound alike and grammatical errors may occur. Departure - Departure Disposition: 01 Home, Self Care Clinical Impression: Strain of left hip Qualifiers: Encounter type: initial encounter Qualified Code(s): S76.012A - Strain of muscle, fascia and tendon of left hip, initial encounter Spinal stenosis Qualifiers: Spinal region: unspecified Qualified Code(s): M48.00 - Spinal stenosis, site unspecified Condition: Good Instructions: ED Spasm Back No Trauma Follow-Up: Hodan Murdock PA-C [Primary Care Provider] - Within 1 week Prescriptions: Cyclobenzaprine [Flexeril] 10 mg PO TID PRN #20 tablet PRN Reason: Spasms oxyCODONE [Roxicodone] 5 mg PO Q4-6H PRN #10 tablet PRN Reason: back pain Comments: Use the medications as prescribed. Follow-up with your doctor for further care. Return if you worsen. This is likely related to the degenerative disc disease in your back as well as your spinal stenosis. Do not drink alcohol or drive while on narcotic pain medicine. Note that many narcotic pain relievers also contain tylenol/acetaminophen. Plea se ensure that your total dose of acetaminophen from all sources does not exceed 3 grams (3000mg) per day. You may constipated on this medication, take a stool softener such as "Colace" twice a day while you are on it. Also recommend a blyr-wer-slvhpfy laxative such as senna or MiraLAX any day that you do not have a bowel movement. If you received narcotic pain medication in the emergency department, do not drive or operate machinery for the next 24 hours. Discharge Date/Time: 05/30/18 10:15
[2018-05-30 10:16] VITALS: BP 134/78
== END 2018-05-30 10:15 | disposition home or self-care (01) ==
LOC: ED 08:52
DX: S76.012A Strain of muscle, fascia and tendon of left hip, initial encounter (principal); X58.XXXA Exposure to other specified factors, initial encounter; M51.36 Other intervertebral disc degeneration, lumbar region; M48.061 Spinal stenosis, lumbar region without neurogenic claudication; I10 Essential (primary) hypertension; E11.9 Type 2 diabetes mellitus without complications; Z79.82 Long term (current) use of aspirin
CPT/HCPCS: 99283; A9270

== ENCOUNTER 2018-07-13 11:42 | Emergency (ER) | payer MEDICARE ==
--- NOTE | 2018-07-13 12:42 | XRAY Report ---
Reason: injury Procedure Date: 07/13/2018 Accession Number: [id number] / [id number] Procedure: XR - Knee 4 View RT CPT Code: FULL RESULT: EXAM: RIGHT KNEE RADIOGRAPHY EXAM DATE: 07/13/2018 12:32 PM. CLINICAL HISTORY: Injury. Twisted knee today. Pain and swelling. COMPARISON: None. TECHNIQUE: 4 views. FINDINGS: Bones: Diffusely demineralized. No fractures or bone lesions. Joints: No subluxation or dislocation. There is a small knee joint effusion. There is mild joint space narrowing and marginal osteophyte formation at the lateral compartment of the knee. Soft Tissues: Unremarkable. No focal soft tissue swelling appreciated. IMPRESSION: 1. No fracture or other acute osseous abnormality. Bones are diffusely demineralized. 2. A moderate knee joint effusion is present. In the setting of recent acute injury, this may be a sign of internal derangement. Consider follow-up with noncontrast MRI of the knee if clinically appropriate. 3. 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 [facility]
--- NOTE | 2018-07-13 13:29 | ED Physician Documentation ---
PD HPI LOWER EXT INJURY - Stated complaint Stated Complaint: R KNEE INJ - Chief complaint Chief Complaint: Ext Problem - History obtained from History obtained from: Patient - History of Present Illness PD HPI LOW EXT INJURY LOCATION: Right, Knee Type of injury: Twist Where injury occurred: Street Timing - onset: Today Worsened by: Moving, Other (Weight bearing.) Associated symptoms: No: Weakness, Numbness Similar symptoms before: Has not had sx before - Additional information Additional information: The patient is a 77-year-old female who presents with pain in her right knee. She was walking her dog this morning when the dog suddenly pulled on the leash, running after a deer, causing twisting of the patient's right knee. She has had pain with weightbearing since that time. She denies any other injuries. Review of Systems Constitutional: denies: Fever Nose: denies: Congestion Cardiac: denies: Chest pain / pressure Respiratory: denies: Dyspnea GI: denies: Abdominal Pain, Nausea, Vomiting Skin: denies: Rash, Abrasion (s) Musculoskeletal: reports: Joint pain (Right knee.), Pain with weight bearing. 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 Cardiovascular: Coronary stent, Pacemaker - Present Medications Home Medications: Ambulatory Orders Medication Instructions Recorded Confirmed Atenolol 25 mg PO TID 07/28/12 01/04/17 Lisinopril [Prinivil] 20 mg PO BID 07/28/12 01/04/17 Aspirin Chewable [St Peter 81 mg PO DAILY 07/11/16 01/04/17 Aspirin] Sertraline [Zoloft] 25 mg ORAL DAILY 01/04/17 01/04/17 Cyclobenzaprine [Flexeril] 10 mg PO TID PRN #20 tablet 05/30/18 Meloxicam 0 mg PO 07/13/18 Statin 0 mg 07/13/18 - Allergies Allergies/Adverse Reactions: Allergies Allergy/AdvReac Type Severity Reaction Status Date / Time nitroglycerin AdvReac Unknown severe Verified 07/13/18 12:06 hypotension - Social History Does the pt smoke?: No Smoking Status: Never smoker Does the pt drink ETOH?: No Does the pt have substance abuse?: No - Immunizations Immunizations are current?: Yes - POLST Patient has POLST: No PD ED PE NORMAL - Vitals Vital signs reviewed: Yes (Borderline hypertension initially.) - General General: Alert and oriented X 3, Well developed/nourished - HEENT HEENT: Atraumatic - Neck Neck: No bony TTP - Cardiac Cardiac: RRR - Respiratory Respiratory: No respiratory distress, Clear bilaterally - Back Back: No spinal TTP - Derm Derm: No rash - Extremities Extremities: No calf tenderness / cord, Other (There is slight joint effusion of the right knee present, with associated tenderness to palpation along the lateral joint line anteriorly. There is no tenderness to palpation in the popliteal fossa or the medial joint line. There is no ligamentous instability detected. She can fully extend her knee and can flex it to 75. Distal neurov ascular is intact.) - Neuro Neuro: Alert and oriented X 3, No motor deficit, No sensory deficit Results - Vitals Vitals: Oxygen O2 Source Room air - Rads (name of study) Right knee Radiology: Prelim report reviewed, EMP read contemporaneously, See rad report (1) No fracture or other acute osseous abnormality. Bones are diffusely demineralized. 2) A moderate knee joint effusion is present. In the setting of recent acute injury, this may be a sign of internal derangement. Consider follow-up with noncontrast MRI of the knee if clinically appropriate. 3) Mild degenerative arthritis, most advanced at the lateral compartment.) PD MEDICAL DECISION MAKING - ED course Complexity details: reviewed results, re-evaluated patient, considered differential, d/w patient ED course: The patient's presentation is most consistent with a right knee strain, with moderate joint effusion. X-ray reveals no acute bony abnormality, but does reveal the joint effusion and mild DJD. Treatment in the emergency department included application of a knee immobilizer, and administration of ibuprofen 800 mg orally. I discussed with her the expected course of injury, symptomatic treatment and outpatient follow-up, as well as potentially worrisome signs or symptoms that should prompt reevaluation in the emergency department. Departure - Departure Disposition: 01 Home, Self Care Clinical Impression: Knee strain Qualifiers: Encounter type: initial encounter Laterality: right Qualified Code(s): S86.911A - Strain of unspecified muscle(s) and tendon(s) at lower leg level, right leg, initial encounter Instructions: ED Effusion Knee, ED Sprain Knee Follow-Up: Hodan Murdock PA-C [Primary Care Provider] - Comments: Use the knee immobilizer if it provides comfort. You can use Tylenol or ibuprofen as needed for anti-inflammatory effect. Apply ice pack intermittently for the next 3 days. Let pain be your guide to activity level. Follow-up with your primary physician within 2 weeks. Call to schedule an appointment. Return to the emergency department if you develop increasing pain or swelling of your knee, or otherwise worsening symptoms. Discharge Date/Time: 07/13/18 13:40
[2018-07-13] MEDS ORDERED: IBUPROFEN 800 MG TABLET PO STA (13:31)
[2018-07-13 13:39] VITALS: BP 151/92
== END 2018-07-13 13:40 | disposition home or self-care (01) ==
LOC: ED 11:42
DX: S86.911A Strain of unspecified muscle(s) and tendon(s) at lower leg level, right leg, initial encounter (principal); X50.1XXA Overexertion from prolonged static or awkward postures, initial encounter; Y93.K1 Activity, walking an animal; Y92.410 Unspecified street and highway as the place of occurrence of the external cause; M25.461 Effusion, right knee; I10 Essential (primary) hypertension; I25.2 Old myocardial infarction; E11.9 Type 2 diabetes mellitus without complications; Z79.82 Long term (current) use of aspirin; Z95.0 Presence of cardiac pacemaker; Z95.5 Presence of coronary angioplasty implant and graft
CPT/HCPCS: 73564; 99283; A9270

== ENCOUNTER 2018-08-17 08:00 | Outpatient (CLI) | payer MEDICARE | END 2018-08-17 23:59 | disposition home or self-care (01) | LOC: LAB.R 08:00 | PROVIDERS: ATTEND Registered Nurse | DX: J20.9 Acute bronchitis, unspecified (principal) | CPT/HCPCS: 87070 ==

== ENCOUNTER 2018-10-30 10:16 | Outpatient (CLI) | payer MEDICARE ==
[2018-10-30 17:24] LABS: BASOPHILS # (AUTO) 0.1 10^3/uL (0.0-0.1); BASOPHILS % (AUTO) 1.2 %; EOSINOPHILS # (AUTO) 0.2 10^3/uL (0.0-0.7); EOSINOPHILS % (AUTO) 4.7 %; LYMPHOCYTES # (AUTO) 1.7 10^3/uL (1.5-3.5); LYMPHOCYTES % (AUTO) 33.1 %; MEAN CORPUSCULAR HEMOGLOBIN 28.8 pg (27.0-31.0); MEAN CORPUSCULAR HGB CONC 31.4 g/dL (32.0-36.0); MEAN CORPUSCULAR VOLUME 91.8 fL (81.0-99.0); MEAN PLATELET VOLUME 10.4 fL (7.9-10.8); MONOCYTES # (AUTO) 0.5 10^3/uL (0.0-1.0); MONOCYTES % (AUTO) 8.9 %; NEUTROPHILS # (AUTO) 2.7 10^3/uL (1.5-6.6); NEUTROPHILS % (AUTO) 51.9 %; PLT - PLATELET COUNT 247 10^3/uL (130-450); RED BLOOD COUNT 4.51 10^6/uL (4.20-5.40); RED CELL DISTRIBUTION WIDTH 13.5 % (12.0-15.0); WHITE BLOOD COUNT 5.2 x10^3/uL (4.8-10.8)
[2018-10-30 17:53] LABS: BUN - BLOOD UREA NITROGEN 21 mg/dL (6-20); CALCIUM 9.5 mg/dL (8.5-10.3); CARBON DIOXIDE - CO2 28 mmol/L (21-32); CHLORIDE 100 mmol/L (101-111); CHOLESTEROL 186 mg/dL; CREATININE 0.9 mg/dL (0.4-1.0); GFR - MDRD 61 (>89); GLUCOSE 103 mg/dL (70-100); HDL CHOLESTEROL 46 mg/dL; LDL CHOLESTEROL,CALCULATED 119 mg/dL; LDL/HDL RATIO 2.6 (<4.4); SODIUM 138 mmol/L (135-145); VLDL CHOLESTEROL 21 mg/dL
[2018-10-30 17:58] LABS: HEMOGLOBIN A1C 0.58 g/dL; HEMOGLOBIN A1C % 5.9 % (4.6-6.2)
[2018-10-30 18:00] LABS: MICROALBUM/CREATININE RATIO,UR 7.3 ug/mg (<30.0); MICROALBUMIN,URINE 0.6 mg/dL (0-300.0)
== END 2018-10-30 10:17 | disposition home or self-care (01) ==
LOC: LAB.S 10:16
PROVIDERS: ATTEND Physician Assistant Medical
DX: E11.9 Type 2 diabetes mellitus without complications (principal); E78.5 Hyperlipidemia, unspecified; I10 Essential (primary) hypertension
CPT/HCPCS: 36415; 80048; 80061; 82040; 82043; 82570; 83036; 83721; 85025

== ENCOUNTER 2019-02-12 08:00 | Outpatient (CLI) | payer MEDICARE | END 2019-02-12 23:59 | disposition home or self-care (01) | LOC: LAB.R 08:00 | PROVIDERS: ATTEND Physician Assistant Medical | DX: R30.0 Dysuria (principal); R35.0 Frequency of micturition | CPT/HCPCS: 87086 ==

== ENCOUNTER 2019-09-24 12:02 | Emergency (ER) | payer MEDICARE ==
[2019-09-24] MEDS ORDERED: ONDANSETRON 4 MG/2 ML VIAL IVP STA (13:00)
[2019-09-24] MEDS ORDERED: HYDROmorphone 1 MG/ML CARPUJECT IVP STA (13:00)
--- NOTE | 2019-09-24 13:13 | XRAY Report ---
PROCEDURE: Wrist 3 View RT INDICATIONS: Fall TECHNIQUE: 3 views of the wrist were acquired. COMPARISON: None FINDINGS: Bones: Comminuted displaced fracture of the distal radius which extends into the radiocarpal joint. D isplaced ulnar styloid process fracture. Soft tissues: No suspicious soft tissue calcifications. IMPRESSION: 1. Comminuted, intra-articular distal radius fracture. 2. Ulnar styloid process fracture. Reviewed by: Michelle Jo MD, PhD on 09/24/2019 1:11 PM PDT Approved by: Michelle Jo MD, PhD on 09/24/2019 1:11 PM PDT Station ID: [id number]
[2019-09-24] MEDS ORDERED: PROPOFOL 200 MG/20 ML VIAL IVP STA (13:40)
--- NOTE | 2019-09-24 13:41 | ED Physician Documentation ---
PD HPI UPPER EXT INJURY - Stated complaint Stated Complaint: RT WRIST INJ - Chief complaint Chief Complaint: Ext Problem - History obtained from History obtained from: Patient - Additonal information Additional information: Tripped over her dog and fell onto an outstretched right wrist. Has severe pain in the right wrist although at my time of evaluation she is received Dilaudid and is now feeling much better. No other injuries. Last solid intake was last night, last liquid intake around noon. 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 Cardiovascular: Coronary stent, Pacemaker - Present Medications Home Medications: Ambulatory Orders Medication Instructions Recorded Confirmed atenoloL [Atenolol] 25 mg PO TID 07/28/12 01/04/17 lisinopriL [Prinivil] 20 mg PO BID 07/28/12 01/04/17 Aspirin Chewable [St Peter 81 mg PO DAILY 07/11/16 01/04/17 Aspirin] Sertraline [Zoloft] 25 mg ORAL DAILY 01/04/17 01/04/17 Cyclobenzaprine [Flexeril] 10 mg PO TID PRN #20 tablet 05/30/18 Meloxicam 0 mg PO 07/13/18 Statin 0 mg 07/13/18 Hydrocodone/Acetaminophen 1 - 2 each PO Q6H PRN #20 tablet 09/24/19 [Hydrocodon-Acetaminophen 5-325] - Allergies Allergies/Adverse Reactions: Allergies Allergy/AdvReac Type Severity Reaction Status Date / Time nitrofurantoin Allergy Rash Verified 09/24/19 12:09 [From Macrobid] nitroglycerin AdvReac Unknown severe Verified 07/13/18 12:06 hypotension - Social History Does the pt smoke?: No Smoking Status: Never smoker Does the pt drink ETOH?: No Does the pt have substance abuse?: No - Immunizations Immunizations are current?: Yes - POLST Patient has POLST: No PD ED PE NORMAL - Vitals Vital signs reviewed: Yes - General General: Alert and oriented X 3, No acute distress - HEENT HEENT: PERRL, EOMI - Neck Neck: Supple, no meningeal sign, No bony TTP - Cardiac Cardiac: RRR - Respiratory Respiratory: No respiratory distress, Clear bilaterally - Abdomen Abdomen: Non tender - Back Back: No CVA TTP, No spinal TTP - Derm Derm: Normal color, Warm and dry - Extremities Extremities: Other (Angulated right wrist fracture, ring was removed during exam for potential swelling. No distal neurovascular compromise.) - Neuro Neuro: Alert and oriented X 3, Normal speech Results - Vitals Vitals: Vital Signs - 24 hr 09/24/19 09/24/19 09/24/19 12:05 13:50 13:53 Temperature 35.9 C L Heart Rate 60 60 60 Respiratory 18 12 10 L Rate Blood Pressure 122/66 151/77 H 151/77 H O2 Saturation 100 100 100 09/24/19 09/24/19 09/24/19 13:58 14:03 14:10 Temperature Heart Rate 66 60 64 Respiratory 18 14 14 Rate Blood Pressure 161/141 H 94/60 O2 Saturation 100 98 Oxygen O2 Source Nasal cannula - Rads (name of study) 3 views of the right wrist x-ray Radiology: EMP read contemporaneously (Comminuted intra-articular distal radius fracture with dorsal angulation and ulnar styloid process fracture) Procedures - Splint (location) RUE Splint applied by: Physician, Tech Type of splint: Fiberglass, Long arm, Sugar tong Other: Patient tolerated well, No complications, Neurovascular intact, Sling provided - Reduction Body part reduced: Right, Wrist Fracture or dislocation: Fracture dislocation Anesthesia: Propofol Reduction aftercare: Alignment improved - Procedural sedation Sedation prep: Informed consent, Time out completed, PE performed, AHA 2 - mild disease Sedation medications: propofol (40mg x 1) Patient status during sedation: Responds to tactile, Vitals remained stable, Maintained airway, Recovered uneventfully Sedation recovery: Recovered uneventfully Time in sedation (Minutes): 10 PD MEDICAL DECISION MAKING - ED course ED course: 78-year-old woman presents with an isolated angulated wrist fracture. She was sedated and reduced. Postreduction x-rays show very good reduction of the dorsal angulation, still some mild radial deviation but I think it is acceptabl e. Departure - Departure Disposition: 01 Home, Self Care Clinical Impression: Colles' fracture Qualifiers: Encounter type: initial encounter Fracture type: closed Laterality: right Qualified Code(s): S52.531A - Colles' fracture of right radius, initial encounter for closed fracture Condition: Good Record reviewed to determine appropriate education?: Yes Instructions: ED Fx Forearm Radius Ulna No Redu Requ Follow-Up: [facility] [Provider Group] Prescriptions: Hydrocodone/Acetaminophen [Hydrocodon-Acetaminophen 5-325] 1 - 2 each PO Q6H PRN #20 tablet PRN Reason: pain Comments: The angulation of the wrist is much better after reduction. Follow-up with the orthopedic surgeons within the week, call them today for an appointment. Do not remove the splint and do not get it wet. So you can bathe and leave it out of the bathtub or put a garbage bag and rubber band around it in the shower. Do not drink or drive while taking narcotic pain medication. Note that many narcotic pain relievers also contain Tylenol/acetaminophen. Please ensure that your total dose of acetaminophen from all sources does not exceed 3 g (3000 mg) per day. You may get constipated while on this medication. Take a stool softener such as Colace twice a day while you are on it. Also add an [id number] laxative such as senna or MiraLAX on any day that you do not have a bowel movement. If you received a narcotic pain medication or sedative while in the emergency department, do not drive for the next 24 hours.
[2019-09-24 14:40] VITALS: BP 127/87
--- NOTE | 2019-09-24 14:50 | XRAY Report ---
PROCEDURE: Wrist 2 View RT INDICATIONS: post reduction TECHNIQUE: 2 views of the wrist were acquired. COMPARISON: X-ray wrist 09/24/2019 FINDINGS: Bones: There is been interval reduction of previously identified comminuted, displaced intra-articula r distal radial fracture. There is improved anatomic alignment. Ulna styloid fracture is also present . Scaphoid view: Not obtained. Soft tissues: No suspicious soft tissue calcifications. IMPRESSION: Improved alignment of distal radial metaphyseal fracture. Ulnar styloid fracture is noted. Reviewed by: Brinda Sabillon MD on 09/24/2019 2:49 PM PDT Approved by: Brinda Sabillon MD on 09/24/2019 2:49 PM PDT Station ID: [id number]
== END 2019-09-24 14:39 | disposition home or self-care (01) ==
LOC: ED 12:02
DX: S52.531A Colles' fracture of right radius, initial encounter for closed fracture (principal); S52.611A Displaced fracture of right ulna styloid process, initial encounter for closed fracture; W01.0XXA Fall on same level from slipping, tripping and stumbling without subsequent striking against object, initial encounter; Y93.K1 Activity, walking an animal
CPT/HCPCS: 25605; 94770; 99152; 99284

== ENCOUNTER 2019-09-24 17:22 | Outpatient (CLI) | payer MEDICARE | END 2019-09-24 17:23 | disposition EMS.NT | LOC: EMS 17:22 | PROVIDERS: ATTEND Surgery | DX: M79.641 Pain in right hand (principal) ==

== ENCOUNTER 2019-09-24 21:39 | Emergency (ER) | payer MEDICARE ==
[2019-09-24 21:52] VITALS: BP 147/77
[2019-09-24] MEDS ORDERED: oxyCODONE 5 MG TABLET PO STA (21:54)
--- NOTE | 2019-09-24 22:02 | ED Physician Documentation ---
PD HPI UPPER EXT INJURY - Stated complaint Stated Complaint: RIGHT ARM PX, NUMBNESS IN FINGERS - Chief complaint Chief Complaint: Ext Problem - History obtained from History obtained from: Patient - History of Present Illness Location: Right (This is a terrance 78-year-old woman who was seen earlier in the day for a Colles' fracture which was reduced. 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 Cardiovascular: Coronary stent, Pacemaker - Present Medications Home Medications: Ambulatory Orders Medication Instructions Recorded Confirmed atenoloL [Atenolol] 25 mg PO TID 07/28/12 01/04/17 lisinopriL [Prinivil] 20 mg PO BID 07/28/12 01/04/17 Aspirin Chewable [St Peter 81 mg PO DAILY 07/11/16 01/04/17 Aspirin] Sertraline [Zoloft] 25 mg ORAL DAILY 01/04/17 01/04/17 Cyclobenzaprine [Flexeril] 10 mg PO TID PRN #20 tablet 05/30/18 Meloxicam 0 mg PO 07/13/18 Statin 0 mg 07/13/18 Hydrocodone/Acetaminophen 1 - 2 each PO Q6H PRN #20 tablet 09/24/19 [Hydrocodon-Acetaminophen 5-325] Oxycodone HCl/Acetaminophen 1 - 2 each PO Q6H PRN #14 tablet 09/24/19 [Percocet 5-325 mg Tablet] - Allergies Allergies/Adverse Reactions: Allergies Allergy/AdvReac Type Severity Reaction Status Date / Time nitrofurantoin Allergy Rash Verified 09/24/19 12:09 [From Macrobid] nitroglycerin AdvReac Unknown severe Verified 07/13/18 12:06 hypotension - Social History Does the pt smoke?: No Smoking Status: Never smoker Does the pt drink ETOH?: No Does the pt have substance abuse?: No - Immunizations Immunizations are current?: Yes - POLST Patient has POLST: No PD ED PE NORMAL - Vitals Vital signs reviewed: Yes - General General: Alert and oriented X 3, No acute distress - Extremities Extremities: Other (On my examination her splint was already loosened, she has excellent capillary refill in all the fingers and normal sensation in all the fingers. No residual deformity.) Results - Vitals Vitals: Vital Signs - 24 hr 09/24/19 21:45 Temperature 36.9 C Heart Rate 59 L Respiratory 18 Rate Blood Pressure 147/77 H O2 Saturation 96 Oxygen O2 Source Room air Procedures - Splint (location) RUE Splint applied by: Physician Type of splint: Fiberglass, Sugar tong Other: Patient tolerated well, No complications, Neurovascular intact, Other (A slightly looser sugar tong splint was placed to the right upper extremity by myself in standard fashion) PD MEDICAL DECISION MAKING - ED course ED course: After replacement of her splint her pain was much better. Departure - Departure Disposition: 01 Home, Self Care Clinical Impression: Tight cast Condition: Good Record reviewed to determine appropriate education?: Yes Prescriptions: Oxycodone HCl/Acetaminophen [Percocet 5-325 mg Tablet] 1 - 2 each PO Q6H PRN #14 tablet PRN Reason: pain Comments: Follow the instructions given earlier in the day regarding follow-up. Return for new or worsening symptoms. You can take ibuprofen in addition to the narcotic pain medication for pain. Do not drink or drive while taking narcotic pain medication. Note that many narcotic pain relievers also contain Tylenol/acetaminophen. Please ensure that your total dose of acetaminophen from all sources does not exceed 3 g (3000 mg) per day. You may get constipated while on this medication. Take a stool softener such as Colace twice a day while you are on it. Also add an giky-puc-wvcmecg laxative such as senna or MiraLAX on any day that you do not have a bowel movement. If you received a narcotic pain medication or sedative while in the emergency department, do not drive for the next 24 hours.
== END 2019-09-24 22:18 | disposition home or self-care (01) ==
LOC: ED 21:39
DX: S52.531A Colles' fracture of right radius, initial encounter for closed fracture (principal); S52.611A Displaced fracture of right ulna styloid process, initial encounter for closed fracture; W01.0XXA Fall on same level from slipping, tripping and stumbling without subsequent striking against object, initial encounter; Y93.K1 Activity, walking an animal
CPT/HCPCS: 25605; 73100; 73110; 96374; 99152; 99284; 99285; A9270; J1170; 94770

== ENCOUNTER 2019-12-05 10:06 | Emergency (ER) | payer MEDICARE ==
--- NOTE | 2019-12-05 10:29 | ED Physician Documentation ---
PD HPI LOWER EXT INJURY - Stated complaint Stated Complaint: LEG/HIP PX - RT SIDE - Chief complaint Chief Complaint: Ext Problem - History obtained from History obtained from: Patient - Additional information Additional information: 79-year-old woman with history of pacemaker, coronary disease, more recent right wrist fracture presents with 4 days of atraumatic pain that is burning and sharp radiating from the right pelvic brim laterally down towards the knee with a prickling sensation in both legs. No saddle anesthesia or incontinence. No rash. 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 Cardiovascular: Coronary stent, Pacemaker - Present Medications Home Medications: Ambulatory Orders Medication Instructions Recorded Confirmed atenoloL [Atenolol] 25 mg PO TID 07/28/12 01/04/17 lisinopriL [Prinivil] 20 mg PO BID 07/28/12 01/04/17 Aspirin Chewable [St Peter 81 mg PO DAILY 07/11/16 01/04/17 Aspirin] Sertraline [Zoloft] 25 mg ORAL DAILY 01/04/17 01/04/17 Cyclobenzaprine [Flexeril] 10 mg PO TID PRN #20 tablet 05/30/18 Meloxicam 0 mg PO 07/13/18 Statin 0 mg 07/13/18 Hydrocodone/Acetaminophen 1 - 2 each PO Q6H PRN #20 tablet 09/24/19 [Hydrocodon-Acetaminophen 5-325] Oxycodone HCl/Acetaminophen 1 - 2 each PO Q6H PRN #14 tablet 09/24/19 [Percocet 5-325 mg Tablet] Hydrocodone/Acetaminophen 1 - 2 tab PO Q6H PRN #20 tablet 12/05/19 [Hydrocodone-Acetamin 5-325 mg] predniSONE [Deltasone] 20 mg PO [id number] #21 tab 12/05/19 - Allergies Allergies/Adverse Reactions: Allergies Allergy/AdvReac Type Severity Reaction Status Date / Time nitrofurantoin Allergy Rash Verified 09/24/19 12:09 [From Macrobid] nitroglycerin AdvReac Unknown severe Verified 07/13/18 12:06 hypotension - Social History Does the pt smoke?: No Smoking Status: Never smoker Does the pt drink ETOH?: No Does the pt have substance abuse?: No - Immunizations Immunizations are current?: Yes - POLST Patient has POLST: No PD ED PE NORMAL - Vitals Vital signs reviewed: Yes - General General: Alert and oriented X 3, No acute distress - Extremities Extremities: Other (She is tender to the low lumbar spine, winces with motion. She has a diminished right L4-L5 reflex. She describes sensation below the knees is prickly but symmetric.) - Neuro Neuro: Alert and oriented X 3, Normal speech Results - Vitals Vitals: Vital Signs - 24 hr 12/05/19 12/05/19 10:20 13:01 Temperature 36.9 C 36.8 C Heart Rate 59 L 72 Respiratory 18 16 Rate Blood Pressure 172/85 H 148/77 H O2 Saturation 98 99 Oxygen O2 Source Room air PD MEDICAL DECISION MAKING - ED course ED course: 79-year-old woman with hip pain, pattern seems more consistent with a radiculopathy. Note she cannot have MRI due to pacemaker. CT of the lumbar spine and left hip x-ray interpreted contemporaneously by me show significant generative changes and spinal stenosis at all levels. This is likely causative. She is not interested at this point in a surgical referral. Departure - Departure Disposition: 01 Home, Self Care Clinical Impression: Right hip pain Spinal stenosis Qualifiers: Spinal region: unspecified Qualified Code(s): M48.00 - Spinal stenosis, site unspecified Condition: Stable Record reviewed to determine appropriate education?: Yes Instructions: Lumbar Radiculopathy, ED Sciatica Prescriptions: predniSONE [Deltasone] 20 mg PO [id number] #21 tab Hydrocodone/Acetaminophen [Hydrocodone-Acetamin 5-325 mg] 1 - 2 tab PO Q6H PRN #20 tablet PRN Reason: Pain Comments: Looks like the pain is from the spinal stenosis. Return if worse. Followup with your physician to discuss Physical therapy and spinal surgeon referral. Discharge Date/Time: 12/05/19 13:02
--- NOTE | 2019-12-05 11:00 | XRAY Report ---
PROCEDURE: Hip w/Pelvis 2-3V RT INDICATIONS: hip pain TECHNIQUE: AP pelvis with lateral view(s) of the right hip(s). COMPARISON: None. FINDINGS: Bones: No definite fractures. No dislocations. Degenerative changes of the bilateral femoral acetabu lar joints. Lower lumbar spondylosis. Pelvic ring appears intact. No suspicious bony lesions. Soft tissues: The visualized bowel gas pattern is normal. No suspicious soft tissue calcifications. IMPRESSION: 1. Right hip without acute fracture or dislocation. If there is persistent clinical concern for occul t fracture, consider further evaluation with limited MRI. 2. Degenerative changes of the bilateral hip and lower lumbar spine. Reviewed by: Dennis Marino MD on 12/05/2019 10:59 AM PDT Approved by: Dennis Marino MD on 12/05/2019 10:59 AM PDT Station ID: [id number]
--- NOTE | 2019-12-05 12:04 | CT Report ---
PROCEDURE: LUMBAR SPINE WO INDICATIONS: back pain TECHNIQUE: Noncontrast 3 mm thick sections acquired from the T12 level to the sacrum. Sagittal and coronal refo rmats were constructed. For radiation dose reduction, the following was used: automated exposure co ntrol, adjustment of mA and/or kV according to patient size. COMPARISON: 11/20/2017. FINDINGS: Image quality: Excellent. Bones: Trace degenerative anterolisthesis of L3 and L4. Trace degenerative retrolisthesis of L1 on L2 . No acute vertebral body compression fractures. No suspicious lytic or blastic bony lesions. Centr al spinal caliber is of normal overall caliber. No pars defects. T10-T11: Small peripherally calcified right paracentral disc protrusion resulting in mild to moderate canal stenosis. No significant foraminal stenosis. T11-T12: Disc bulge, right facet hypertrophy, mild to moderate canal stenosis. No foraminal stenosis. T12-L1: Disc bulge. Facet and ligamentous hypertrophy. Mild canal stenosis. L1-L2: Disc bulge. Mild retrolisthesis of L1 on L2. Facet and ligament hypertrophy. Moderate canal stenosis. Moderate bilateral foraminal stenosis with mild flattening deformity on the exiting bilate ral L1 nerve roots. L2-L3: Disc bulge. Facet and ligament hypertrophy. Severe canal stenosis. Moderate bilateral heike inal stenosis. Flattening deformity on the exiting left L2 nerve root. L3-L4: Disc bulge. Congenitally short facets. Exuberant bilateral facet hypertrophy. Marked canal s tenosis. Moderate to severe right foraminal narrowing with impression on the right L3 nerve root. Mod erate left foraminal narrowing. L4-L5: Disc bulge. Marked right facet hypertrophy. Left facet hypertrophy. Severe canal stenosis. M ild to moderate bilateral foraminal stenosis. L5-S1: Prominent posterior osteophyte. Facet and ligament hypertrophy. Moderate canal stenosis. Sev ere right foraminal narrowing with impingement on the right L5 nerve root. Moderate to severe left fo raminal narrowing with impingement on the left L5 nerve root. Soft tissues: No retroperitoneal masses or hematomas. Visualized aorta is normal in caliber. IMPRESSION: 1. No evidence acute compression fracture. 2. Extensive lumbar spinal degenerative change. 3. Extensive multilevel canal stenosis at all levels. Findings include moderate canal stenosis at L1- L2, severe canal stenosis at L2-L3, marked canal stenosis at L3-L4, severe canal stenosis at L4-L5, a nd moderate canal stenosis at L5-S1. Reviewed by: Isidro Green MD on 12/05/2019 11:02 AM [facility] Approved by: Isidro Green MD on 12/05/2019 11:02 AM [facility] Station ID: [id number]
[2019-12-05 13:02] VITALS: BP 148/77
== END 2019-12-05 13:02 | disposition home or self-care (01) ==
LOC: ED 10:06
DX: M51.16 Intervertebral disc disorders with radiculopathy, lumbar region (principal); M48.061 Spinal stenosis, lumbar region without neurogenic claudication; R20.2 Paresthesia of skin; M16.0 Bilateral primary osteoarthritis of hip; Z95.0 Presence of cardiac pacemaker; I25.10 Atherosclerotic heart disease of native coronary artery without angina pectoris; I10 Essential (primary) hypertension; E11.9 Type 2 diabetes mellitus without complications; Z79.82 Long term (current) use of aspirin
CPT/HCPCS: 72131; 99281; 99283

== ENCOUNTER 2020-01-08 12:49 | Outpatient (CLI) | payer MEDICARE ==
[2020-01-08 15:50] LABS: CREATININE 1.3 mg/dL (0.4-1.0)
== END 2020-01-08 12:50 | disposition home or self-care (01) ==
LOC: LAB.S 12:49
PROVIDERS: ATTEND Family Medicine
DX: M48.062 Spinal stenosis, lumbar region with neurogenic claudication (principal)
CPT/HCPCS: 36415; 80048

== ENCOUNTER 2021-01-09 08:32 | Emergency (ER) | payer MEDICARE ==
--- NOTE | 2021-01-09 09:36 | XRAY Report ---
PROCEDURE: Knee 3 View RT INDICATIONS: Chronic right knee pain TECHNIQUE: 3 views of the right knee(s) were acquired. COMPARISON: July 13, 2018 FINDINGS: BONES/JOINT: No acute, displaced fracture or dislocation. Small to moderate substantial suprapatellar joint effusion.Tricompartment osteophytosis with mild to moderate lateral joint space narrowing. A fabella is seen. SOFT TISSUES: No significant abnormality. IMPRESSION: 1.No acute osseous abnormality. Reviewed by: Nabor Toussaint MD on 01/09/2021 9:35 AM PDT Approved by: Nabor Toussaint MD on 01/09/2021 9:35 AM PDT Station ID: [id number]
--- NOTE | 2021-01-09 10:29 | ED Physician Documentation ---
PD HPI LOWER EXT INJURY - Stated complaint Stated Complaint: UNABLE TO WALK, RIGHT KNEE PX - Chief complaint Chief Complaint: Ext Problem - History obtained from History obtained from: Patient - History of Present Illness PD HPI LOW EXT INJURY LOCATION: Right, Knee Type of injury: Other (vacuming and mopping) Where injury occurred: Home Timing - onset: How many days ago (3) Timing - duration: Days (2) Timing - details: Gradual onset, Still present Improved by: Rest, Immobilization Worsened by: Moving, Palpating Associated symptoms: No: Weakness, Numbness, Tingling, Swelling Contributing factors: No: Anticoagulated Similar symptoms before: Diagnosis (knee arthritis/strain) Recently seen: Not recently seen - Additional information Additional information: 80-year-old female with a pacer and stents in place who does not have diabetes comes in this morning with acute right knee pain. The pain has been present since yesterday afternoon and she is having difficulty walking associated with weightbearing. She has pain radiating down her right knee from the right knee to the toes. She indicates that she did do vacuuming and mopping in her home the day prior to the beginning of these symptoms. She did not otherwise injure her knee. She is not having significant swelling and she is not having a fever. 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 : None HEENT: None Psych: Depression Musculoskeletal: None Derm: None - Past Surgical History Past Surgical History: Yes /INSTRUCTOR INDUSTRIAL DESIGN: Hysterectomy Cardiovascular: Coronary stent, Pacemaker - Present Medications Home Medications: Ambulatory Orders Medication Instructions Recorded Confirmed atenoloL [Atenolol] 25 mg PO TID 07/28/12 01/04/17 lisinopriL [Prinivil] 20 mg PO BID 07/28/12 01/04/17 Aspirin Chewable [St Peter 81 mg PO DAILY 07/11/16 01/04/17 Aspirin] Sertraline [Zoloft] 25 mg ORAL DAILY 01/04/17 01/04/17 Cyclobenzaprine [Flexeril] 10 mg PO TID PRN #20 tablet 05/30/18 Meloxicam 0 mg PO 07/13/18 Statin 0 mg 07/13/18 Hydrocodone/Acetaminophen 1 - 2 each PO Q6H PRN #20 tablet 09/24/19 [Hydrocodon-Acetaminophen 5-325] Oxycodone HCl/Acetaminophen 1 - 2 each PO Q6H PRN #14 tablet 09/24/19 [Percocet 5-325 mg Tablet] Hydrocodone/Acetaminophen 1 - 2 tab PO Q6H PRN #20 tablet 12/05/19 [Hydrocodone-Acetamin 5-325 mg] predniSONE [Deltasone] 20 mg PO [id number] #21 tab 12/05/19 Walker [Ultra-Light Rollator] 1 each MC DAILY #1 each 01/09/21 - Allergies Allergies/Adverse Reactions: Allergies Allergy/AdvReac Type Severity Reaction Status Date / Time nitrofurantoin Allergy Rash Verified 01/09/21 08:44 [From Macrobid] nitroglycerin AdvReac Unknown severe Verified 01/09/21 08:44 hypotension - Social History Does the pt smoke?: No Smoking Status: Never smoker Does the pt drink ETOH?: No Does the pt have substance abuse?: No - Immunizations Immunizations are current?: Yes - POLST Patient has POLST: No PD ED PE NORMAL - Vitals Vital signs reviewed: Yes (hypertensive ) - General General: Alert and oriented X 3, No acute distress, Well developed/nourished - HEENT HEENT: Atraumatic, PERRL, EOMI - Respiratory Respiratory: No respiratory distress - Derm Derm: Normal color, Warm and dry, No rash - Extremities Extremities: No deformity, No edema, Other (There is mild tenderness to the lateral joint line of the right knee. There is no significant tenderness to the posterior calf or thigh. The ligaments are stable to testing in the knee runs in a fair range of motion. 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 No acute osseous abnormality.), EMP read indepedently (On my read there is arthritis to the knee.), See rad report PD MEDICAL DECISION MAKING - ED course Complexity details: reviewed results, re-evaluated patient, considered differential, d/w patient ED course: 80-year-old female with a history of arthritis to her knees did a bit more in her home workwise with cleaning and the following day developed pain in her knee. The pain is gotten worse and she is having difficulty with walking because of the pain. She does not have any significant swelling I am not concerned about the possibility of DVT as her exam is not consistent with that. X-rays without evidence of fracture or effusion. The patient is administered dexamethasone 10 mg orally and Toradol 60 mg IM. She prefers to medicate with anti-inflammatories. Departure - Departure Disposition: 01 Home, Self Care Clinical Impression: Arthritis of right knee Condition: Stable Instructions: ED Degenerative Joint Disease Follow-Up: ABBIE JUAREZ MD [Primary Care Provider] - Prescriptions: Walker [Ultra-Light Rollator] 1 each MC DAILY #1 each
[2021-01-09] MEDS ORDERED: DEXAMETHASONE 10 MG/ML VIAL PO STA (10:44)
[2021-01-09] MEDS ORDERED: CHERRY SYRUP 10 ML UDC PO ONE (10:44)
[2021-01-09] MEDS ORDERED: KETOROLAC 60 MG/2 ML VIAL IM STA (10:44)
[2021-01-09 11:30] VITALS: BP 157/99
== END 2021-01-09 11:42 | disposition home or self-care (01) ==
LOC: ED 08:32
DX: M17.11 Unilateral primary osteoarthritis, right knee (principal)
CPT/HCPCS: 73562; 96372; 99283; A9270

== ENCOUNTER 2021-06-01 08:00 | Outpatient (CLI) | payer MEDICARE | END 2021-06-01 23:59 | LOC: LAB.S 08:00 | PROVIDERS: ATTEND Registered Nurse | DX: U07.1 COVID-19 (principal) | CPT/HCPCS: 87275; 87276; U0004 ==

== ENCOUNTER 2021-06-05 11:20 | Outpatient (CLI) | payer MEDICARE | END 2021-06-05 11:21 | disposition critical access hospital (66) | LOC: EMS 11:20 | DX: U07.1 COVID-19 (principal) | CPT/HCPCS: A0425; A0427 ==

== ENCOUNTER 2021-06-21 07:10 | Outpatient (CLI) | payer MEDICARE | END 2021-06-21 07:11 | disposition critical access hospital (66) | LOC: EMS 07:10 | DX: M54.89 Other dorsalgia (principal); R06.02 Shortness of breath | CPT/HCPCS: A0425; A0427 ==

== ENCOUNTER 2021-06-21 07:41 | Emergency (ER) | payer MEDICARE ==
--- NOTE | 2021-06-21 08:20 | ED Physician Documentation ---
PD HPI CHEST PAIN - Stated complaint Stated Complaint: BACK PX/ CHEST PX - Chief complaint Chief Complaint: Resp - History obtained from History obtained from: Patient, EMS - History of Present Illness Timing - onset: Last night Timing - onset during: Rest Timing - duration: Hours Timing - details: Gradual onset, Still present Pain level max: 10 Pain level now: 8 Quality: Pressure, Sharp, Pain Location: Upper back (R>L) Improved by: Rest Worsened by: Exertion, Inspiration, Palpation Associated symptoms: Shortness of air, Cough. No: Diaphoresis, Nausea, Vomiting, Feeling faint / dizzy, General Weakness, Palpitations Similar symptoms before: Diagnosis (covid 19) Recently seen: Admitted - Additional information Additional information: 80-year-old female discharged from the hospital 1 week ago after a 10-day stay for COVID-19 pneumonia has returned to home and she was feeling a bit better when she arrived home and over the past 3 days she has had increasing pain in her upper back especially with any respiration. She does have some congestion in her nose and feels like it is difficulty to full deep breath. This morning her pain was out of control and she is come to the emergency department for evaluation. She does use inhalers is not currently using them. She has had some dexamethasone during the course of her illness. Review of Systems Constitutional: denies: Fever, Chills, Myalgias Eyes: denies: Decreased vision Ears: denies: Ear pain Nose: reports: Congestion. denies: Rhinorrhea / runny nose Throat: denies: Sore throat Cardiac: reports: Chest pain / pressure. denies: Palpitations, Pedal edema, Calf pain Respiratory: reports: Dyspnea, Cough. 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 : None HEENT: None Psych: Depression Musculoskeletal: None Derm: None - Past Surgical History Past Surgical History: Yes /LITHOGRAPHIC PLATE MAKER: Hysterectomy Cardiovascular: Coronary stent, Pacemaker - Present Medications Home Medications: Ambulatory Orders Medication Instructions Recorded Confirmed Aspirin Chewable [St Peter 81 mg PO DAILY 07/11/16 06/21/21 Aspirin] Sertraline [Zoloft] 50 mg ORAL DAILY 01/04/17 06/21/21 Gabapentin [Neurontin] 1,200 mg PO BID 06/05/21 06/21/21 Rosuvastatin Calcium [Crestor] 20 mg PO DAILY 06/05/21 06/21/21 atenoloL [Tenormin] 25 mg PO DAILY #30 tablet 06/15/21 06/21/21 lisinopriL [Lisinopril] 10 mg PO QPM #30 tablet 06/15/21 06/21/21 predniSONE [Deltasone] 10 mg PO ONCE #26 tablet 06/21/21 - Allergies Allergies/Adverse Reactions: Allergies Allergy/AdvReac Type Severity Reaction Status Date / Time nitrofurantoin Allergy Rash Verified 06/05/21 12:06 [From Macrobid] nitroglycerin AdvReac Unknown severe Verified 06/05/21 12:06 hypotension - Social History Does the pt smoke?: No Smoking Status: Never smoker Does the pt drink ETOH?: No Does the pt have substance abuse?: No - Immunizations Immunizations are current?: Yes - POLST Patient has POLST: No PD ED PE NORMAL - Vitals Vital signs reviewed: Yes (hypotensive ) - General General: Alert and oriented X 3, No acute distress, Well developed/nourished - HEENT HEENT: Atraumatic, PERRL, EOMI - Neck Neck: Supple, no meningeal sign, No bony TTP - Cardiac Cardiac: RRR, No murmur - Respiratory Respiratory: No respiratory distress, Other (low rumbling rhonchi bibasilar. chest wall tenderness reproducing the symptoms the patient is experiencing with palpation over the rhomboids and paraspinous muscles bilat worse on R. 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, No motor deficit, No sensory deficit, Normal speech Eye Opening: Spontaneous Motor: Obeys Commands Verbal: Oriented GCS Score: 15 - Psych Psych: Normal mood, Normal affect Results - Vitals Vitals: Vital Signs - 24 hr 06/21/21 06/21/21 06/21/21 07:55 08:00 08:30 Temperature 37.2 C Heart Rate 60 60 Respiratory 18 20 Rate Blood Pressure 84/53 L 88/56 L 84/57 L O2 Saturation 93 96 06/21/21 06/21/21 06/21/21 09:00 09:30 09:44 Temperature Heart Rate 60 60 94 Respiratory 18 18 22 Rate Blood Pressure 108/59 L 134/68 H O2 Saturation 100 99 06/21/21 10:00 Temperature Heart Rate 60 Respiratory 20 Rate Blood Pressure 126/66 O2 Saturation 94 Oxygen O2 Source [] Nasal cannula O2 Source [] Room air O2 Source Nasal cannula - EKG (time done) 0824 Rate: Rate (enter#) (60) Rhythm: Paced (atrial) Compare to prior EKG: Unchanged from prior EKG (SPT 01/04/17 no sig changes) Computer interpretation: Disagree with computer (I do not see ST depression in V5/6 or I) - Labs Labs: Laboratory Tests 06/21/21 06/21/21 06/21/21 08:44 08:44 08:44 WBC 11.2 H RBC 3.82 L Hgb 11.2 L Hct 34.3 L MCV 89.8 MCH 29.3 MCHC 32.7 RDW 13.3 Plt Count 323 MPV 8.7 Neut # (Auto) 8.7 H Lymph # (Auto) 0.9 L [place] # (Auto) 1.2 H Eos # (Auto) 0.3 Baso # (Auto) 0.1 Absolute Nucleated RBC 0.00 Nucleated RBC % 0.0 Sodium 131 L Potassium 4.3 Chloride 98 L Carbon Dioxide 23 Anion Gap 10.0 BUN 12 Creatinine 0.8 Estimated GFR (MDRD) 69 L Glucose 109 H Lactic Acid 1.5 Calcium 8.2 L Total Bilirubin 0.7 AST 17 ALT 18 Alkaline Phosphatase 43 Troponin I High Sens Total Protein 6.3 L Albumin 3.0 L Globulin 3.3 Albumin/Globulin Ratio 0.9 L Lipase 32 Urine Color Urine Clarity Urine pH Ur Specific Sullivan Urine Protein Urine Glucose (UA) Urine Ketones Urine Occult Blood Urine Nitrite Urine Bilirubin Urine Urobilinogen Ur Leukocyte Esterase Urine RBC Urine WBC Ur Squamous Epith Cells Urine Bacteria Ur Microscopic Review Urine Culture Comments 06/21/21 06/21/21 08:44 08:50 WBC RBC Hgb Hct MCV MCH MCHC RDW Plt Count MPV Neut # (Auto) Lymph # (Auto) [place] # (Auto) Eos # (Auto) Baso # (Auto) Absolute Nucleated RBC Nucleated RBC % Sodium Potassium Chloride Carbon Dioxide Anion Gap BUN Creatinine Estimated GFR (MDRD) Glucose Lactic Acid Calcium Total Bilirubin AST ALT Alkaline Phosphatase Troponin I High Sens 12.2 Total Protein Albumin Globulin Albumin/Globulin Ratio Lipase Urine Color YELLOW Urine Clarity CLEAR Urine pH 7.0 Ur Specific Sullivan 1.010 Urine Protein NEGATIVE Urine Glucose (UA) NEGATIVE Urine Ketones NEGATIVE Urine Occult Blood NEGATIVE Urine Nitrite NEGATIVE Urine Bilirubin NEGATIVE Urine Urobilinogen 0.2 (NORMAL) Ur Leukocyte Esterase SMALL H Urine RBC 0-5 Urine WBC 4-5 Ur Squamous Epith Cells FEW Squamous Urine Bacteria Few Ur Microscopic Review INDICATED Urine Culture Comments INDICATED - Rads (name of study) chest Radiology: Prelim report reviewed (Impression: Cardiomegaly with moderate vascular congestion improving left pleural effusion.), EMP read indepedently, See rad report Procedures - IVC sono (time) 0805 Bedside IVC sono: IVC measures (cm) (0.88), Dehydration (est 2 liter deficit) PD MEDICAL DECISION MAKING - ED course Complexity details: reviewed results, re-evaluated patient, considered differential, d/w patient ED course: 80-year-old female with a recent admission to the hospital for "Covid" pneumonia has returned to home 1 week ago and she is now developing pain in her upper back that is worse when than when she was in the hospital. She does respond well to Toradol and dexamethasone given with respect to her pain. She has further improvement in her breathing with use of a DuoNeb treatment. She arrived to the emergency department hypotensive and was found to be significantly dehydrated. During her hospital stay she had a similar problem on initial evaluation and her blood pressure medications were reduced and she was hydrated. She indicates to me that she drinks a lot of tea and she urinates a lot. Today we found her to be at least 2 L deficit. W The proposed treatment is a course of prednisone and regular use of her inhaler as well as use of Flonase to decrease her nasal congestion. Basically anything to improve air movement. She is resistant to taking narcotic pain reliever but does take ibuprofen and I suspect now that we have control of her pain this will be adequate. She is instructed to be certain to take this with food.e gave a liter bolus and have continued her on 200 mL an hour. She is much improved from when she arrived here no longer requiring oxygen. Her chest x-ray shows residual from Covid. I found it hard to determine if there was another or new pneumonia. I discussed this finding with the patient and asked her to return to the hospital should she not have the the expected improvement with treatment. Departure - Departure Disposition: 01 Home, Self Care Clinical Impression: Dehydration, Costochondritis, acute Condition: Stable Instructions: ED Dehydration, ED Chest Pain Costochondritis Follow-Up: ABBIE BORREGO MD [Physician No Access] - Prescriptions: predniSONE [Deltasone] 10 mg PO ONCE #26 tablet Comments: Abby, today looks like you have fatigue of the chest wall related to prolonged difficulty with breathing. The mainstay of treatment with this is to improve the ease of breathing and use an anti-inflammatory for pain control. We have escribed prednisone to [facility] in [place]. My recommendation is to use your inhaler on a regular basis, even use samuel-nase to make the breathing though your nose easier. Use the Ibuprofen for pain control and always take this with food. We are expecting improvement with treatment and getting worse is a reason to return to see us. Otherwise follow up with Dr. Borrego as planned. We found you to be dehydrated again today and this may be related to excessive caffeine intake with the tea you are drinking or just not drinking as much as you feel you are.
[2021-06-21] MEDS ORDERED: KETOROLAC 30 MG/ML VIAL IVP STA (08:21)
[2021-06-21] MEDS ORDERED: SODIUM CHLORIDE 0.9% 1,000 ML IV STA ×2 (08:21→09:11)
[2021-06-21] MEDS ORDERED: DEXAMETHASONE 10 MG/ML VIAL IVP STA (08:22)
--- NOTE | 2021-06-21 08:52 | XRAY Report ---
PROCEDURE: Chest 1 View X-Ray INDICATIONS: chest pain TECHNIQUE: One view of the chest was acquired. COMPARISON: 06/11/2021 FINDINGS: Left-sided dual-chamber pacemaker present. Atherosclerotic vascular calcification noted in the aortic arch. Heart size is enlarged, and there is moderate vascular congestion, similar prior exam. 2 left pleural effusion has improved. Right pleural space clear. Osseous structures unremarkable. IMPRESSION: Cardiomegaly with moderate vascular congestion Improving left pleural effusion Reviewed by: Roberto Thomas MD on 06/21/2021 7:51 AM AKDT Approved by: Roberto Thomas MD on 06/21/2021 7:51 AM AKDT Station ID: [id number]
[2021-06-21 08:56] LABS: BASOPHILS # (AUTO) 0.1 10^3/uL (0.0-0.1); BASOPHILS % (AUTO) 0.4 %; EOSINOPHILS # (AUTO) 0.3 10^3/uL (0.0-0.7); EOSINOPHILS % (AUTO) 2.3 %; HCT - HEMATOCRIT 34.3 % (37.0-47.0); HGB - HEMOGLOBIN 11.2 g/dL (12.0-16.0); LYMPHOCYTES # (AUTO) 0.9 10^3/uL (1.5-3.5); LYMPHOCYTES % (AUTO) 8.1 %; MEAN CORPUSCULAR HEMOGLOBIN 29.3 pg (27.0-31.0); MEAN CORPUSCULAR HGB CONC 32.7 g/dL (32.0-36.0); MEAN CORPUSCULAR VOLUME 89.8 fL (81.0-99.0); MEAN PLATELET VOLUME 8.7 fL (7.9-10.8); MONOCYTES # (AUTO) 1.2 10^3/uL (0.0-1.0); MONOCYTES % (AUTO) 10.5 %; NEUTROPHILS # (AUTO) 8.7 10^3/uL (1.5-6.6); NEUTROPHILS % (AUTO) 78.2 %; PLT - PLATELET COUNT 323 10^3/uL (130-450); RED BLOOD COUNT 3.82 10^6/uL (4.20-5.40); RED CELL DISTRIBUTION WIDTH 13.3 % (12.0-15.0); WHITE BLOOD COUNT 11.2 x10^3/uL (4.8-10.8)
[2021-06-21 09:11] LABS: ALBUMIN/GLOBULIN RATIO 0.9 (1.0-2.2); BILIRUBIN,TOTAL 0.7 mg/dL (0.2-1.0); CALCIUM 8.2 mg/dL (8.5-10.3); CREATININE 0.8 mg/dL (0.4-1.0); POTASSIUM 4.3 mmol/L (3.5-5.0); TOTAL PROTEIN 6.3 g/dL (6.7-8.2)
[2021-06-21 09:16] LABS: BILIRUBIN,URINE NEGATIVE (NEGATIVE); CLARITY,URINE CLEAR (CLEAR); GLUCOSE, URINE (UA) NEGATIVE (NEGATIVE); KETONES,URINE (UA) NEGATIVE (NEGATIVE); LEUKOCYTE ESTERASE, URINE SMALL (NEGATIVE); NITRITE,URINE NEGATIVE (NEGATIVE); OCCULT BLOOD,URINE NEGATIVE (NEGATIVE); PROTEIN,URINE NEGATIVE (NEGATIVE); UROBILINOGEN,URINE 0.2 (NORMAL) E.U./dL (NORMAL)
[2021-06-21] MEDS ORDERED: IPRATROPIUM/ALBUTEROL 3 ML NEB INH STA (09:16)
[2021-06-21 09:28] LABS: BACTERIA,URINE Few /HPF (None Seen); RBC,URINE 0-5 /HPF (0-5); SQUAMOUS EPITHELIAL CELL,UR FEW Squamous (<= Few)
[2021-06-21 10:48] VITALS: BP 124/70
== END 2021-06-21 11:38 | disposition home or self-care (01) ==
LOC: EDUNIT# → ED 07:41
DX: E86.0 Dehydration (principal); M94.0 Chondrocostal junction syndrome [Tietze]; Z86.16 Personal history of COVID-19
CPT/HCPCS: 36415; 80053; 81001; 81003; 83605; 83690; 84484; 85025; 87040; 87077; 87086; 87181; 93005; 94640; 96361; 96374; 96375; 99284

== ENCOUNTER 2021-09-23 08:00 | Outpatient (CLI) | payer MEDICARE | END 2021-09-23 23:59 | disposition home or self-care (01) | LOC: LAB 08:00 | PROVIDERS: ATTEND Registered Nurse | DX: R82.79 Other abnormal findings on microbiological examination of urine (principal) | CPT/HCPCS: 87086 ==

== ENCOUNTER 2021-11-26 07:06 | Day surgery (SDC) | payer MEDICARE ==
[~2021-11-26 07:06] MED LIST: CYCLOPENTOLATE 1% OPHTH DROPS 2 ML ONE; KETOROLAC 0.45% OPHTH DROPS ONE; PHENYLEPHRINE 2.5% OPHTH 2 ML DROPS ONE; PROPARACAINE 0.5% OPHTH DROPS 15 ML ONE
[2021-11-26] MEDS ORDERED: LACTATED RINGERS 1,000 ML IV ONE ×2 (07:12→09:00)
--- NOTE | 2021-11-26 08:19 | ANESTHESIA ---
Pre-Anesthesia VS, & Labs - Diagnosis left cataract - Procedure cataract extraction with IOL Vital Signs: Temp Pulse Resp BP Pulse Ox 36.4 C L 59 L 20 125/71 94 11/26/21 07:19 11/26/21 07:19 11/26/21 07:19 11/26/21 07:19 11/26/21 07:19 Height: 5 ft 2 in Weight (kg): 93 kg Body Mass Index: 37.5 BMI Classification: Obese - NPO >8 hours - Is Patient ?: No Home Medications and Allergies Home Medications: Ambulatory Orders Ropinirole HCl 0.5 mg PO DAILY 11/26/21 Aspirin Chewable [St Peter Aspirin] 81 mg PO DAILY 07/11/16 Sertraline [Zoloft] 50 mg ORAL DAILY 01/04/17 Gabapentin [Neurontin] 1,200 mg PO BID 06/05/21 Rosuvastatin Calcium [Crestor] 20 mg PO DAILY 06/05/21 Ropinirole HCl 0.5 mg PO DAILY 11/26/21 Allergies/Adverse Reactions: Allergies Allergy/AdvReac Type Severity Reaction Status Date / Time nitrofurantoin Allergy Rash Verified 06/05/21 12:06 [From Macrobid] nitroglycerin AdvReac Unknown severe Verified 06/05/21 12:06 hypotension Anes History & Medical History - Anesthetic History Anesthesia Complications: reports: No previous complications - Medical History Cardiovascular: reports: Hypertension, CO, Arrhythmia Pulmonary: reports: None Gastrointestinal: reports: None Urinary: reports: None Neuro: reports: TIA Musculoskeletal: reports: None Endocrine/Autoimmune: reports: Type 2 diabetes Skin: reports: None Smoking Status: Never smoker History of Cancer?: No - Surgical History Cardiothoracic: reports: Coronary stent, Pacemaker Gynecologic: reports: Hysterectomy Exam General: Alert Dental: WNL Mouth Opening: Greater than 4 Fingerbreadths Mallampati classification: IV Thyromental Distance: greater than 6 cm Respiratory: Lungs clear Cardiovascular: Regular rate Plan Anesthesia Type: MAC Consent for Procedure(s) Verified and Reviewed: Yes Code Status: Attempt Resuscitation ASA classification: 3-Severe systemic disease Is this case an emergency?: No
[2021-11-26] MEDS ORDERED: MIDAZOLAM 2 MG/2 ML VIAL ONE (08:22)
[2021-11-26] MEDS ORDERED: PROPARACAINE 0.5% OPHTH DROPS 15 ML EACHEYE ONE (08:30)
[2021-11-26] MEDS ORDERED: BRIMONIDINE 0.2% OPHTH DROPS 5 ML OPTH ONE (08:47)
[2021-11-26] MEDS ORDERED: EPINEPHrine 1 MG/ML AMP IR ONE (08:47)
[2021-11-26] MEDS ORDERED: TIMOLOL 0.5% OPHTH DROPS OPTH ONE (08:48)
[2021-11-26] MEDS ORDERED: TRIAMCIN/MOXIFLOX OPHTHALMIC 0.6 ML VIAL IO ONE ×2 (08:48→11:10)
[2021-11-26] MEDS ORDERED: VANCOMYCIN OPHTH (TOPICAL) 10 MG/ML SYRINGE TOP ONE (08:48)
[2021-11-26] MEDS ORDERED: BSS/LIDOCAINE/EPINEPHRINE 1 ML SYRINGE IO ONE (08:48)
--- NOTE | 2021-11-26 09:03 | OPERATIVE REPORT ---
Operative Report - Other Other Information/Narrative: Date of Surgery: 11/26/21 Preop Dx: Visually significant cataract left eye. This was the first cataract surgery. Postop Dx: Same Procedure: Phacoemulsification with posterior chamber intraocular lens implant left eye Surgeon: Dr. 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 Best corrected visual acuity was 20/40 with glare to 20/60 vision in the left eye. Indications for surgery were: - Overall decrease in vision - Difficulty seeing words on a computer screen - Difficulty reading - Difficulty seeing words, closed captions, or game scores on TV - Difficulty driving in low light or at night - Difficulty driving at night because of headlights from other vehicles - Difficulty with glare or bright lights in any situation The patient was consented at length concerning the risks and benefits of cataract surgery after which the patient expressed a desire to proceed with surgery. Operative Procedure: The patient was taken into OR#3 and placed under monitored anesthesia care. A surgical time-out was conducted confirming correct patient, correct procedure, and correct surgical site. The patient was given topical anesthesia and then prepped and draped in the usual sterile fashion. The eye was entered at the 6 and 3 oclock positions. Intracameral Shugarcaine was injected into the anterior chamber followed by a dispersive viscoelastic. A continuous-tear curvilinear capsulorhexis was performed. The nucleus was hydrodissected and phacoemulsified. The cortex was evacuated using automated infusion and aspiration. A cohesive viscoelastic was injected into the capsular bag and a 24.5 diopter intraocular lens was inserted into the bag. Infusion and aspiration were used to evacuate the viscoelastic materials from the eye. The wounds were hydrated and the eye inflated to physiologic pressure using balanced salt solution. Approximately 0.25ml of a mixture of triamcinolone and moxifloxacin was injected trans-sclerally into the vitreous in the inferotemporal quadrant using a 30 gauge cannula. An additional 0.55ml of a mixture of triamcinolone and moxifloxacin was injected subconjunctivally in the superior quadrant for infection and inflammation prophylaxis. Wound integrity was checked with Weck-Augustina sponges. The patient was taken from the operating room in good condition and given post-op instructions.
[2021-11-26 09:08] VITALS: BP 131/63
[2021-11-26] MEDS ORDERED: VANCOMYCIN OPHTH (TOPICAL) 10 MG/ML SYRINGE ONE (11:10)
[2021-11-26] MEDS ORDERED: BSS/LIDOCAINE/EPINEPHRINE 1 ML VIAL ONE (11:10)
[2021-11-26] MEDS ORDERED: EPINEPHrine 1 MG/ML AMP ONE (11:10)
[2021-11-26] MEDS ORDERED: TIMOLOL 0.5% OPHTH DROPS ONE (11:10)
[2021-11-26] MEDS ORDERED: BRIMONIDINE 0.2% OPHTH DROPS 5 ML ONE (11:10)
--- NOTE | 2021-11-26 14:28 | ANESTHESIA POST OP EVALUATION ---
Anesthesia Post Eval - Post Anesthesia Eval Vitals: Last Vital Signs Temp 37.2 C 11/26/21 08:57 Pulse 60 11/26/21 09:08 Resp 16 11/26/21 09:08 BP 131/63 H 11/26/21 09:08 Pulse Ox 96 11/26/21 09:08 CV Function Including HR & BP: Stable Pain Control: Satisfactory Nausea & Vomiting: Negative Mental Status: Baseline Respiratory Status: Airway Patent Hydration Status: Satisfactory Anesthesia Complications: None
== END 2021-11-26 07:07 | disposition home or self-care (01) ==
LOC: SDS 07:06
PROVIDERS: ATTEND Ophthalmology
DX: E11.36 Type 2 diabetes mellitus with diabetic cataract (principal); H25.812 Combined forms of age-related cataract, left eye; E66.9 Obesity, unspecified; Z68.37 Body mass index [BMI] 37.0-37.9, adult; Z87.891 Personal history of nicotine dependence
CPT/HCPCS: 66984; A9270; J3490; J7120

== ENCOUNTER 2021-12-06 09:31 | Emergency (ER) | payer MEDICARE ==
--- NOTE | 2021-12-06 10:47 | XRAY Report ---
PROCEDURE: Chest 1 View X-Ray INDICATIONS: cough TECHNIQUE: One view of the chest was acquired. COMPARISON: 06/21/2021 FINDINGS: Surgical changes and devices: Left-sided dual-chamber pacemaker present. Heart size is enlarged, there is moderate vascular congestion present. Pleural spaces are clear. Athe rosclerotic vascular calcification noted in the aortic arch. Osseous structures normal. IMPRESSION: Cardiomegaly and moderate vascular congestion Reviewed by: Roberto Thomas MD on 12/06/2021 9:45 AM ALDAIR Approved by: Roberto Thomas MD on 12/06/2021 9:45 AM ALDAIR Station ID: [id number]
--- NOTE | 2021-12-06 10:59 | XRAY Report ---
PROCEDURE: Hip w/Pelvis 2-3V RT INDICATIONS: pain TECHNIQUE: AP pelvis with lateral view(s) of the right hip(s). COMPARISON: None. FINDINGS: Bones: No fractures or dislocations. Pelvic ring appears intact. No suspicious bony lesions. Mode rate joint space narrowing. Degenerative changes noted in the lower lumbar spine Soft tissues: The visualized bowel gas pattern is normal. No suspicious soft tissue calcifications. IMPRESSION: Moderate joint space narrowing without fracture or subluxation. Reviewed by: Roberto Thomas MD on 12/06/2021 9:58 AM ALDAIR Approved by: Roberto Thomas MD on 12/06/2021 9:58 AM ALDAIR Station ID: [id number]
--- NOTE | 2021-12-06 11:57 | ED Physician Documentation ---
History of Present Illness - Stated complaint Stated Complaint: R HIP PX/COUGH - Chief complaint Chief Complaint: General - History obtained from History obtained from: Patient - Additonal information Additional information: The patient comes to the emergency department chief complaint of cough and right hip pain. The patient has a history of CHF and is worried that her CHF may be acting up again. She also has a history of arthritis in her hips, especially her right one, and states that she does have hydrocodone for this, but does not like to take it. As such, she has only been taking it Once a day instead of the 3 times a day that she is supposed to be taking it. The patient states that her hip hurts so much that sometimes it keeps her awake at night. She denies any swelling. No fevers or chills. No erythema. No acute trauma. Patient denies chest pain. No other complaints at this time. Review of Systems Ten Systems: 10 systems reviewed and negative Constitutional: reports: Reviewed and negative Eyes: reports: Reviewed and negative Ears: reports: Reviewed and negative Nose: reports: Reviewed and negative Throat: reports: Reviewed and negative Cardiac: reports: Reviewed and negative Respiratory: reports: Dyspnea GI: reports: Reviewed and negative : reports: Reviewed and negative Skin: reports: Reviewed and negative Musculoskeletal: reports: Joint pain, Pain with weight bearing Neurologic: reports: Reviewed and negative Psychiatric: reports: Reviewed and negative Endocrine: reports: Reviewed and negative Immunocompromised: reports: Reviewed and negative PD PAST MEDICAL HISTORY - Past Medical History Past Medical History: Yes Cardiovascular: Hypertension, [place], Arrhythmia Respiratory: None Neuro: TIA Endocrine/Autoimmune: Type 2 diabetes GI: None 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 : None HEENT: None Psych: Depression Musculoskeletal: None Derm: None - Past Surgical History Past Surgical History: Yes /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: Hysterectomy Cardiovascular: Coronary stent, Pacemaker - Present Medications Home Medications: Ambulatory Orders Medication Instructions Recorded Confirmed Aspirin Chewable [[place] 81 mg PO DAILY 07/11/16 12/06/21 Aspirin] Sertraline [Zoloft] 50 mg ORAL DAILY 01/04/17 12/06/21 Gabapentin [Neurontin] 1,200 mg PO BID 06/05/21 12/06/21 Rosuvastatin Calcium [Crestor] 20 mg PO DAILY 06/05/21 12/06/21 atenoloL [Tenormin] 25 mg PO DAILY #30 tablet 06/15/21 12/06/21 lisinopriL [Lisinopril] 10 mg PO QPM #30 tablet 06/15/21 12/06/21 Ropinirole HCl 0.5 mg PO DAILY 11/26/21 12/06/21 Cyclobenzaprine [Flexeril] 10 mg PO Q6HR PRN 12/06/21 12/06/21 Furosemide [Lasix] 20 mg PO DAILY 7 Days #7 tablet 12/06/21 HYDROcod/ACETAM 5/325 [[place] 5/325] 1 tab PO Q6HR PRN 12/06/21 12/06/21 predniSONE [Deltasone] 60 mg PO DAILY 5 Days #15 tablet 12/06/21 - Allergies Allergies/Adverse Reactions: Allergies Allergy/AdvReac Type Severity Reaction Status Date / Time nitrofurantoin Allergy Rash Verified 12/06/21 09:42 [From Macrobid] nitroglycerin AdvReac Unknown severe Verified 12/06/21 09:42 hypotension - Social History Does the pt smoke?: No Smoking Status: Never smoker Does the pt drink ETOH?: No Does the pt have substance abuse?: No - Immunizations Immunizations are current?: Yes - POLST Patient has POLST: No PD ED PE NORMAL - Vitals Vital signs reviewed: Yes - General General: Alert and oriented X 3, No acute distress, Well developed/nourished - HEENT HEENT: Atraumatic, PERRL, EOMI, Moist mucous membranes - Cardiac Cardiac: RRR, No murmur, Strong equal pulses - Respiratory Respiratory: No respiratory distress, Clear bilaterally - Abdomen Abdomen: Soft, Non tender, Non distended - Derm Derm: Normal color, Warm and dry, No rash - Extremities Extremities: No deformity, Other (1+ pitting edema bilateral lower extremities) - Neuro Neuro: Alert and oriented 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, 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, Normal speech - Psych Psych: Normal mood, Normal affect Results - Vitals Vitals: Oxygen O2 Source [With Activity] Nasal cannula O2 Source [Without Activity] Room air O2 Source Room air - Rads (name of study) Chest x-ray Radiology: Final report received, EMP read indepedently, See rad report (Cardiomegaly with moderate vascular congestion.) Hip x-ray Radiology: Final report received, EMP read indepedently, See rad report PD MEDICAL DECISION MAKING - ED course Complexity details: reviewed results, re-evaluated patient, considered differential, d/w patient ED course: The patient x-ray showed findings of CHF and arthritis/joint space narrowing of her hip. I discussed symptomatic management with her including taking the hydrocodone more frequently as she is already been prescribed. The patient s tates that she will do this. We will also give a temporary course of diuresis to try to clear her lungs. The patient's oxygen saturation is good and she is stable for outpatient management. We have discussed the usual indications for return. Departure - Departure Disposition: Home, Self Care Clinical Impression: Arthritis, hip CHF (congestive heart failure) Qualifiers: Heart failure type: unspecified Heart failure chronicity: acute on chronic Qualified Code(s): I50.9 - Heart failure, unspecified Condition: Stable Instructions: ED CHF General Prescriptions: predniSONE [Deltasone] 60 mg PO DAILY 5 Days #15 tablet Furosemide [Lasix] 20 mg PO DAILY 7 Days #7 tablet Comments: Your x-ray shows mild congestive heart failure. The x-rays of the hip show arthritis but otherwise negative. The prescription for the medications we have discussed have been electronically transmitted to the [facility] pharmacy in [place]. You may increase your hydrocodone to the dose you are supposed to be taking which is 1 tablet every 8 hours. Discharge Date/Time: 12/06/21 12:16
[2021-12-06 12:16] VITALS: BP 150/105
== END 2021-12-06 12:16 | disposition home or self-care (01) ==
LOC: ED 09:31
DX: M16.11 Unilateral primary osteoarthritis, right hip (principal); I11.0 Hypertensive heart disease with heart failure; I50.9 Heart failure, unspecified; E11.9 Type 2 diabetes mellitus without complications
CPT/HCPCS: 99283; 99284

== ENCOUNTER 2021-12-24 07:34 | Day surgery (SDC) | payer MEDICARE ==
[~2021-12-24 07:34] MED LIST changes: +BRIMONIDINE 0.2% OPHTH DROPS 5 ML ONE; +BSS/LIDOCAINE/EPINEPHRINE 1 ML VIAL ONE; +EPINEPHrine 1 MG/ML AMP ONE; +TRIAMCIN/MOXIFLOX OPHTHALMIC 0.6 ML VIAL IO ONE; +VANCOMYCIN OPHTH (TOPICAL) 10 MG/ML SYRINGE ONE
[2021-12-24] MEDS ORDERED: LACTATED RINGERS 1,000 ML IV ONE (08:22)
--- NOTE | 2021-12-24 08:30 | ANESTHESIA ---
Pre-Anesthesia VS, & Labs - Diagnosis R senile combined cataract - Procedure R extraction cataract w IOL Vital Signs: Temp Pulse Resp BP Pulse Ox O2 Flow Rate 36 C L 59 L 20 104/69 94 12/24/21 08:02 12/24/21 08:02 12/24/21 08:02 12/24/21 08:02 12/24/21 08:02 Height: 5 ft 4 in Weight (kg): 91 kg Body Mass Index: 34.4 BMI Classification: Obese - NPO >8 hours - Is Patient ?: No - Lab Results Lab results reviewed: Yes Home Medications and Allergies Aspirin Chewable [[place] Peter Aspirin] 81 mg PO DAILY 07/11/16 Sertraline [Zoloft] 50 mg ORAL DAILY 01/04/17 Gabapentin [Neurontin] 1,200 mg PO BID 06/05/21 Rosuvastatin Calcium [Crestor] 20 mg PO DAILY 06/05/21 Ropinirole HCl 0.5 mg PO DAILY 11/26/21 Cyclobenzaprine [Flexeril] 10 mg PO Q6HR PRN 12/06/21 HYDROcod/ACETAM 5/325 [[place] 5/325] 1 tab PO Q6HR PRN 12/06/21 Allergies/Adverse Reactions: Allergies Allergy/AdvReac Type Severity Reaction Status Date / Time nitrofurantoin Allergy Rash Verified 12/06/21 09:42 [From Macrobid] nitroglycerin AdvReac Unknown severe Verified 12/06/21 09:42 hypotension Anes History & Medical History - Anesthetic History Anesthesia Complications: reports: No previous complications Family history of Anesthesia Complications: Denies Family history of Malignant Hyperthermia: Denies - Medical History Cardiovascular: reports: Hypertension, [place], Arrhythmia Pulmonary: reports: None Gastrointestinal: reports: None Urinary: reports: None Neuro: reports: TIA Musculoskeletal: reports: None Endocrine/Autoimmune: reports: Type 2 diabetes Skin: reports: None Smoking Status: Never smoker - Surgical History Cardiothoracic: reports: Coronary stent, Pacemaker Gynecologic: reports: Hysterectomy Exam General: Alert, Oriented x3, Cooperative Dental: WNL Mouth Openin Fingerbreadth Neck Mobility: Normal Mallampati classification: III Thyromental Distance: 4-6 cm Respiratory: Lungs clear, Normal breath sounds, No respiratory distress Plan Anesthesia Type: MAC Consent for Procedure(s) Verified and Reviewed: Yes Code Status: Attempt Resuscitation ASA classification: 3-Severe systemic disease Is this case an emergency?: No
[2021-12-24] MEDS ORDERED: MIDAZOLAM 2 MG/2 ML VIAL ONE (08:52)
[2021-12-24] MEDS ORDERED: BRIMONIDINE 0.2% OPHTH DROPS 5 ML OPTH ONE (09:17)
[2021-12-24] MEDS ORDERED: TRIAMCIN/MOXIFLOX OPHTHALMIC 0.6 ML VIAL IO ONE (09:17)
[2021-12-24] MEDS ORDERED: TIMOLOL 0.5% OPHTH DROPS OPTH ONE (09:17)
[2021-12-24] MEDS ORDERED: BSS/LIDOCAINE/EPINEPHRINE 1 ML SYRINGE IO ONE (09:17)
[2021-12-24] MEDS ORDERED: EPINEPHrine 1 MG/ML AMP IR ONE (09:17)
[2021-12-24] MEDS ORDERED: VANCOMYCIN OPHTH (TOPICAL) 10 MG/ML SYRINGE TOP ONE (09:18)
[2021-12-24] MEDS ORDERED: PROPARACAINE 0.5% OPHTH DROPS 15 ML RIGHTEYE ONE (09:18)
[2021-12-24] MEDS ORDERED: LACTATED RINGERS 900 ML IV ONE (09:21)
--- NOTE | 2021-12-24 09:29 | OPERATIVE REPORT ---
Operative Report - Other Other Information/Narrative: Date of Surgery: 12/24/21 Preop Dx: Visually significant cataract right eye. Cataract surgery was performed in the left eye on . Postop Dx: Same Procedure: Phacoemulsification with posterior chamber intraocular lens implant right eye Surgeon: Dr. Rell Trejo Anesthesia: Monitored anesthesia care Complications: None Operative Indications: This is a 81-year-old F with progressive vision loss in the right eye due to 2+ nuclear sclerotic and 1+ posterior subcapsular cataract. Best corrected visual acuity was 20/25 with glare to 20/200 vision in the right eye. Indications for surgery were: - Overall decrease in vision - Difficulty reading - Difficulty driving at night because of headlights from other vehicles - Difficulty with glare or bright lights in any situation The patient was consented at length concerning the risks and benefits of cataract surgery after which the patient expressed a desire to proceed with surgery. Operative Procedure: The patient was taken into OR#3 and placed under monitored anesthesia care. A surgical time-out was conducted confirming correct patient, correct procedure, and correct surgical site. The patient was given topical anesthesia and then prepped and draped in the usual sterile fashion. The eye was entered at the 6 and 3 oclock positions. Intracameral Shugarcaine was injected into the anterior chamber followed by a dispersive viscoelastic. A continuous-tear curvilinear capsulorhexis was performed. The nucleus was hydrodissected and phacoemulsified. The cortex was evacuated using automated infusion and aspiration. A cohesive viscoelastic was injected into the capsular bag and a 24.5 diopter intraocular lens was inserted into the bag. Infusion and aspiration were used to evacuate the viscoelastic materials from the eye. The wounds were hydrated and the eye inflated to physiologic pressure using balanced salt solution. Approximately 0.25ml of a mixture of triamcinolone and moxifloxacin was injected trans-sclerally into the vitreous in the inferotemporal quadrant using a 30 gauge cannula. An additional 0.55ml of a mixture of triamcinolone and moxifloxacin was injected subconjunctivally in the superior quadrant for infection and inflammation prophylaxis. Wound integrity was checked with Weck-Augustina sponges. The patient was taken from the operating room in good condition and given post-op instructions.
[2021-12-24 09:44] VITALS: BP 127/71
--- NOTE | 2021-12-24 10:12 | ANESTHESIA POST OP EVALUATION ---
Anesthesia Post Eval - Post Anesthesia Eval Vitals: Last Vital Signs Temp 36.4 C L 12/24/21 09:35 Pulse 60 12/24/21 09:35 Resp 14 12/24/21 09:35 BP 127/71 12/24/21 09:35 Pulse Ox 99 12/24/21 09:35 O2 Flow Rate CV Function Including HR & BP: Stable Pain Control: Satisfactory Nausea & Vomiting: Negative Mental Status: Baseline Respiratory Status: Airway Patent Hydration Status: Satisfactory Anesthesia Complications: None
== END 2021-12-24 07:35 | disposition home or self-care (01) ==
LOC: SDS 07:34
PROVIDERS: ATTEND Ophthalmology
DX: E11.36 Type 2 diabetes mellitus with diabetic cataract (principal); H25.811 Combined forms of age-related cataract, right eye; Z98.42 Cataract extraction status, left eye; E66.9 Obesity, unspecified; Z68.34 Body mass index [BMI] 34.0-34.9, adult
CPT/HCPCS: 66984; A9270; J3490; J7120

== ENCOUNTER 2022-01-19 18:14 | Outpatient (CLI) | payer MEDICARE ==
--- NOTE | 2022-01-20 10:05 | XRAY Report ---
PROCEDURE: Chest 2 View X-Ray INDICATIONS: THORACIC BACK PAIN TECHNIQUE: PA and lateral views of the chest. COMPARISON: Chest radiographs 12/06/2021. CTA chest 06/07/2021. FINDINGS: A cardiac pacemaker is seen with pulse generator in the left chest. There is mild prominence of the central pulmonary vasculature. No focal pulmonary opacity. No pleural effusion or pneumothorax. Heart is mildly enlarged and stable. Moderate aortic atherosclerotic calcifications. No acute vertebral compression fracture is seen. Multilevel degenerative changes are seen in the spin e. IMPRESSION: 1.Bilateral interstitial prominence may represent mild interstitial edema versus an atypical or viral pneumonia. 2.Mild cardiomegaly. 3.No acute thoracic compression fracture identified. Reviewed by: Bossman Ham MD on 01/20/2022 10:04 AM PDT Approved by: Bossman Ham MD on 01/20/2022 10:04 AM PDT Station ID: [id number]
== END 2022-01-19 18:15 | disposition home or self-care (01) ==
LOC: DI.S 18:14
PROVIDERS: ATTEND Physician Assistant
DX: R91.8 Other nonspecific abnormal finding of lung field (principal); I51.7 Cardiomegaly

== ENCOUNTER 2022-05-09 08:33 | Emergency (ER) | payer MEDICARE ==
--- NOTE | 2022-05-09 09:34 | XRAY Report ---
PROCEDURE: Chest 2 View X-Ray INDICATIONS: cough TECHNIQUE: 2 views of the chest were acquired. COMPARISON: 01/19/2022, 12/06/2021 FINDINGS: Surgical changes and devices: A pacer device can be seen. The leads are seen in the expected posit ions. Lungs and pleura: No pleural effusions or pneumothorax. Lungs are clear. Mediastinum: Mediastinal contours are normal. Heart size is normal. Calcification is seen of the a ortic arch. Bones and chest wall: No suspicious bony abnormalities. Age-appropriate degenerative changes are see n. Soft tissues appear unremarkable. IMPRESSION: No focal infiltrates are seen. Postoperative and degenerative changes are seen. Reviewed by: Alessandro Najera MD on 05/09/2022 8:[address] [facility] Approved by: Alessandro Najera MD on 05/09/2022 8:[address] [facility] Station ID: [id number]
[2022-05-09 11:17] LABS: B. PARAPERTUSSIS- RESP PCR PAN NOT DETECTED; B. PERTUSSIS- RESP PCR PANEL NOT DETECTED; C. PNEUMONIAE- RESP PCR PANEL NOT DETECTED; CORONAVIRUS 229E-RESP PCR NOT DETECTED; CORONAVIRUS HKU1-RESP PCR NOT DETECTED; CORONAVIRUS NL63-RESP PCR NOT DETECTED; CORONAVIRUS OC43-RESP PCR NOT DETECTED; HUMAN METAPNEUMOVIRUS NOT DETECTED; INFLUENZA A- RESP PCR PANEL NOT DETECTED; INFLUENZA B - RESP PCR PANEL NOT DETECTED; M. PNEUMONIAE- RESP PCR PANEL NOT DETECTED; PARAINFLUENZA VIRUS 1 NOT DETECTED; PARAINFLUENZA VIRUS 2 NOT DETECTED; PARAINFLUENZA VIRUS 3 NOT DETECTED; PARAINFLUENZA VIRUS 4 NOT DETECTED; RHINOVIRUS/ENTEROVIRUS DETECTED; RSV- RESP PCR PANEL NOT DETECTED; SARS-CoV-2 -RESP PCR PANEL NOT DETECTED
[2022-05-09] MEDS ORDERED: IPRATROPIUM/ALBUTEROL 3 ML NEB INH STA (11:23)
[2022-05-09] MEDS ORDERED: ACETAMINOPHEN 500 MG TABLET PO STA (11:23)
--- NOTE | 2022-05-09 11:26 | ED Physician Documentation ---
PD HPI URI - Stated complaint Stated Complaint: COUGH/BACK PX - Chief complaint Chief Complaint: Resp - History obtained from History obtained from: Patient - Additional information Additional information: 81 yo female with hx CAD/PPM. She's been sick for three days with cough, bodyaches, some upper back pain, chills, but no fever. She denies shortness of breath over her baseline. No sit contacts. 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 Cardiovascular: Coronary stent, Pacemaker - Present Medications Home Medications: Ambulatory Orders Medication Instructions Recorded Confirmed Aspirin Chewable [[place] 81 mg PO DAILY 07/11/16 12/24/21 Aspirin] Sertraline [Zoloft] 50 mg ORAL DAILY 01/04/17 12/24/21 Gabapentin [Neurontin] 1,200 mg PO BID 06/05/21 12/06/21 Rosuvastatin Calcium [Crestor] 20 mg PO DAILY 06/05/21 12/24/21 atenoloL [Tenormin] 25 mg PO DAILY #30 tablet 06/15/21 12/24/21 lisinopriL [Lisinopril] 10 mg PO QPM #30 tablet 06/15/21 12/24/21 Ropinirole HCl 0.5 mg PO DAILY 11/26/21 12/24/21 Cyclobenzaprine [Flexeril] 10 mg PO Q6HR PRN 12/06/21 12/24/21 HYDROcod/ACETAM 5/325 [[place] 5/325] 1 tab PO Q6HR PRN 12/06/21 12/24/21 Albuterol Sulf [Ventolin Hfa 1 - 2 puffs INH Q4HR PRN #1 each 05/09/22 Inhaler] Benzonatate [Tessalon] 200 mg PO TID PRN #20 cap 05/09/22 - Allergies Allergies/Adverse Reactions: Allergies Allergy/AdvReac Type Severity Reaction Status Date / Time nitrofurantoin Allergy Rash Verified 05/09/22 09:01 [From Macrobid] nitroglycerin AdvReac Unknown severe Verified 05/09/22 09:01 hypotension - Social History Does the pt smoke?: No Smoking Status: Never smoker Does the pt drink ETOH?: No Does the pt have substance abuse?: No - Immunizations Immunizations are current?: Yes - POLST Patient has POLST: No PD ED PE NORMAL - Vitals Vital signs reviewed: Yes - General General: Alert and oriented X 3, No acute distress - Neck Neck: Supple, no meningeal sign - Cardiac Cardiac: RRR, No murmur - Respiratory Respiratory: No respiratory distress, Other (wheezy both bases) - Abdomen Abdomen: Non tender - Neuro Neuro: Alert and oriented X 3, Normal speech Results - Vitals Vitals: Vital Signs - 24 hr 05/09/22 05/09/22 05/09/22 08:59 10:53 11:38 Temperature 36.9 C Heart Rate 60 59 L 68 Respiratory 18 18 20 Rate Blood Pressure 194/75 H 203/89 H O2 Saturation 98 100 05/09/22 12:00 Temperature Heart Rate 65 Respiratory 17 Rate Blood Pressure 200/84 H O2 Saturation 95 Oxygen O2 Source [] Nasal cannula O2 Source [] Room air O2 Source Room air - Labs Labs: Laboratory Tests 05/09/22 10:11 Nasal Adenovirus (PCR) NOT DETECTED Nasal B. parapertussis DNA (PCR) NOT DETECTED Nasal Coronavir 229E PCR NOT DETECTED Nasal Coronavir HKU1 PCR NOT DETECTED Nasal Coronavir NL63 PCR NOT DETECTED Nasal Coronavir OC43 PCR NOT DETECTED Nasal Enterovir/Rhinovir PCR DETECTED A Nasal Influenza B PCR NOT DETECTED Nasal Influenza A PCR NOT DETECTED Nasal Parainfluen 1 PCR NOT DETECTED Nasal Parainfluen 2 PCR NOT DETECTED Nasal Parainfluen 3 PCR NOT DETECTED Nasal Parainfluen 4 PCR NOT DETECTED Nasal RSV (PCR) NOT DETECTED Nasal B.pertussis DNA PCR NOT DETECTED Nasal C.pneumoniae (PCR) NOT DETECTED Billy Human Metapneumo PCR NOT DETECTED Nasal M.pneumoniae (PCR) NOT DETECTED Nasal SARS-CoV-2 (PCR) NOT DETECTED - Rads (name of study) CXR - NAD Radiology: Final report received, EMP read indepedently PD Medical Decision Making - ED course ED course: 81-year-old woman presents with respiratory infection. Chest x-ray is clear, she has some diffuse wheezes and felt much better after a breathing treatment here. [employer] panel positive for enterovirus/rhinovirus which is likely causative. No evidence of pneumonia. Departure - Departure Disposition: Home, Self Care Clinical Impression: Enterovirus infection Upper respiratory tract infection Qualifiers: Pharyngitis/tonsillitis etiology: other specified organisms Condition: Good Record reviewed to determine appropriate education?: Yes Instructions: ED Viral Syndrome Prescriptions: Albuterol Sulf [Ventolin Hfa Inhaler] 1 - 2 puffs INH Q4HR PRN #1 each PRN Reason: Shortness Of Air/Wheezing Benzonatate [Tessalon] 200 mg PO TID PRN #20 cap PRN Reason: Cough Comments: Call your doctor to arrange a follow-up appointment, make the next available appointment. In the interim, return anytime if worse or if new symptoms develop.
[2022-05-09 12:31] VITALS: BP 200/84
== END 2022-05-09 12:36 | disposition home or self-care (01) ==
LOC: ED 08:33
DX: J06.9 Acute upper respiratory infection, unspecified (principal); B34.1 Enterovirus infection, unspecified; Z20.822 Contact with and (suspected) exposure to COVID-19
CPT/HCPCS: 71046; 87633; 94640; 99284; A9270

== ENCOUNTER 2022-07-03 12:13 | Outpatient (CLI) | payer MEDICARE | END 2022-07-03 23:59 | disposition critical access hospital (66) | LOC: EMS 12:13 | DX: R53.1 Weakness (principal); R05.9 Cough, unspecified; R50.9 Fever, unspecified | CPT/HCPCS: A0425; A0429 ==

== ENCOUNTER 2022-07-03 12:48 | Observation (INO) | payer MEDICARE ==
[2022-07-03] MEDS ORDERED: SODIUM CHLORIDE 0.9% 1,000 ML IV STA (12:57)
--- NOTE | 2022-07-03 12:58 | ED Physician Documentation ---
History of Present Illness - Stated complaint Stated Complaint: GLF - History obtained from History obtained from: Patient, EMS - Additonal information Additional information: This is a 81-year-old woman with history of hypertension, hyperlipidemia, sleep apnea, type II winky block with pacemaker, CAD, TIA who presents with 5 days of productive cough, shortness of breath and on and off fevers culminating in weakness today with a episode of a fall where she basically kind of just crumpled out of bed without injury. She is noted to be febrile per EMS prior to arrival. No home COVID testing was done but she notes she had COVID about a year ago. PD PAST MEDICAL HISTORY - Past Medical History Cardiovascular: Hypertension, [place], Arrhythmia Respiratory: None Neuro: TIA Endocrine/Autoimmune: Type 2 diabetes GI: None INSOLE RASPER: None : None HEENT: None Psych: Depression Musculoskeletal: None Derm: None - Past Surgical History Past Surgical History: Yes /INSOLE RASPER: Hysterectomy Cardiovascular: Coronary stent, Pacemaker - Present Medications Home Medications: Ambulatory Orders Medication Instructions Recorded Confirmed Aspirin Chewable [[place] 81 mg PO DAILY 07/11/16 07/03/22 Aspirin] Sertraline [Zoloft] 50 mg ORAL DAILY 01/04/17 07/03/22 Gabapentin [Neurontin] 1,200 mg PO BID 06/05/21 07/03/22 Rosuvastatin Calcium [Crestor] 20 mg PO DAILY 06/05/21 07/03/22 atenoloL [Tenormin] 25 mg PO DAILY #30 tablet 06/15/21 07/03/22 lisinopriL [Lisinopril] 10 mg PO QPM #30 tablet 06/15/21 07/03/22 Ropinirole HCl 0.5 mg PO DAILY 11/26/21 07/03/22 Cyclobenzaprine [Flexeril] 10 mg PO Q6HR PRN 12/06/21 12/24/21 HYDROcod/ACETAM 5/325 [[place] 5/325] 1 tab PO Q6HR PRN 12/06/21 07/03/22 Albuterol Sulf [Ventolin Hfa 1 - 2 puffs INH Q4HR PRN #1 each 05/09/22 Inhaler] Benzonatate [Tessalon] 200 mg PO TID PRN #20 cap 05/09/22 - Allergies Allergies/Adverse Reactions: Allergies Allergy/AdvReac Type Severity Reaction Status Date / Time nitrofurantoin Allergy Rash Verified 07/03/22 13:50 [From Macrobid] nitroglycerin AdvReac Unknown severe Verified 07/03/22 13:50 hypotension - Social History Does the pt smoke?: No Smoking Status: Never smoker Does the pt drink ETOH?: No Does the pt have substance abuse?: No - Immunizations Immunizations are current?: Yes - POLST Patient has POLST: No PD ED PE NORMAL - Vitals Vital signs reviewed: Yes (Mildly tachypneic) - General General: Alert and oriented X 3, No acute distress - HEENT HEENT: PERRL, EOMI, Other (right otitis) - Neck Neck: Supple, no meningeal sign, No bony TTP - Cardiac Cardiac: RRR, No murmur - Respiratory Respiratory: Other (Diminished on the left side with mild tachypnea but speaking in full sentences) - Abdomen Abdomen: Non tender - Back Back: No CVA TTP, No spinal TTP - Derm Derm: Normal color, Warm and dry - Extremities Extremities: No edema, No calf tenderness / cord - Neuro Neuro: Alert and oriented X 3, Normal speech Results - Vitals Vitals: Vital Signs - 24 hr 07/03/22 13:00 Temperature 37.7 C Heart Rate 60 Respiratory 23 Rate Blood Pressure 135/66 H O2 Saturation 95 Oxygen O2 Source [] Nasal cannula O2 Source [] Room air O2 Source Room air - EKG (time done) 1307 EKG releavant findings:: EKG personally interpreted by author of this note. Relevant findings are: Rate: Rate (enter#) (60) Rhythm: Paced [place]: Normal Intervals: Normal LA QRS: Normal Ischemia: Normal ST segments - Labs Labs: Laboratory Tests 07/03/22 07/03/22 07/03/22 13:15 13:23 13:23 WBC 11.2 H RBC 4.39 Hgb 12.4 Hct 38.8 MCV 88.4 MCH 28.2 MCHC 32.0 RDW 14.2 Plt Count 218 MPV 9.8 Neut # (Auto) 8.4 H Lymph # (Auto) 1.5 [place] # (Auto) 1.1 H Eos # (Auto) 0.0 Baso # (Auto) 0.1 Absolute Nucleated RBC 0.00 Nucleated RBC % 0.0 Sodium 131 L Potassium 4.1 Chloride 96 L Carbon Dioxide 23 Anion Gap 12.0 BUN 23 H Creatinine 1.0 Estimated GFR (MDRD) 53 L Glucose 138 H Lactic Acid Calcium 9.1 Total Bilirubin 1.4 H AST 24 ALT 17 Alkaline Phosphatase 47 Total Protein 7.6 Albumin 3.8 Globulin 3.8 Albumin/Globulin Ratio 1.0 Nasal Adenovirus (PCR) NOT DETECTED Nasal B. parapertussis DNA (PCR) NOT DETECTED Nasal Coronavir 229E PCR NOT DETECTED Nasal Coronavir HKU1 PCR NOT DETECTED Nasal Coronavir NL63 PCR NOT DETECTED Nasal Coronavir OC43 PCR NOT DETECTED Nasal Enterovir/Rhinovir PCR NOT DETECTED Nasal Influenza B PCR NOT DETECTED Nasal Influenza A PCR NOT DETECTED Nasal Parainfluen 1 PCR NOT DETECTED Nasal Parainfluen 2 PCR NOT DETECTED Nasal Parainfluen 3 PCR NOT DETECTED Nasal Parainfluen 4 PCR NOT DETECTED Nasal RSV (PCR) NOT DETECTED Nasal B.pertussis DNA PCR NOT DETECTED Nasal C.pneumoniae (PCR) NOT DETECTED [place] Human Metapneumo PCR NOT DETECTED Nasal M.pneumoniae (PCR) NOT DETECTED Nasal SARS-CoV-2 (PCR) NOT DETECTED 07/03/22 13:23 WBC RBC Hgb Hct MCV MCH MCHC RDW Plt Count MPV Neut # (Auto) Lymph # (Auto) [place] # (Auto) Eos # (Auto) Baso # (Auto) Absolute Nucleated RBC Nucleated RBC % Sodium Potassium Chloride Carbon Dioxide Anion Gap BUN Creatinine Estimated GFR (MDRD) Glucose Lactic Acid 1.3 Calcium Total Bilirubin AST ALT Alkaline Phosphatase Total Protein Albumin Globulin Albumin/Globulin Ratio Nasal Adenovirus (PCR) Nasal B. parapertussis DNA (PCR) Nasal Coronavir 229E PCR Nasal Coronavir HKU1 PCR Nasal Coronavir NL63 PCR Nasal Coronavir OC43 PCR Nasal Enterovir/Rhinovir PCR Nasal Influenza B PCR Nasal Influenza A PCR Nasal Parainfluen 1 PCR Nasal Parainfluen 2 PCR Nasal Parainfluen 3 PCR Nasal Parainfluen 4 PCR Nasal RSV (PCR) Nasal B.pertussis DNA PCR Nasal C.pneumoniae (PCR) Billy Human Metapneumo PCR Nasal M.pneumoniae (PCR) Nasal SARS-CoV-2 (PCR) - Rads (name of study) 1v cxr- poss mild chf. infiltrate/atalectasis L base Relevant Findings:: Final report received, EMP independent interpretation of test PD Medical Decision Making - ED course ED course: 81-year-old woman with clinical and radiographic pneumonia with weakness today culminating in a noninjury fall. Her CBC is notable for mild leukocytosis at 11, otherwise unremarkable. CMP reviewed with modest hyponatremia at 131 and elevated BUN consistent with prerenal azotemia. Lactate normal. Bio fire respiratory panel is negative. She was administered a liter of IV normal saline and Rocephin and Zithromax after blood cultures. After this she remained very weak and required standby assist for ambulation and would like to stay in the hospital for the night. Given her PSI score is not very high I spoke with Dr. Patel for observation at 4:16 PM. Departure - Departure Disposition: ED Place in Observation Clinical Impression: Pneumonia Qualifiers: Pneumonia type: due to unspecified organism Laterality: left Lung location: lower lobe of lung Qualified Code(s): J18.9 - Pneumonia, unspecified organism ROM (right otitis media) Qualifiers: Otitis media type: suppurative Chronicity: acute Recurrence: non-recurrent Spontaneous tympanic membrane rupture: without spontaneous rupture Qualified Code(s): H66.001 - Acute suppurative otitis media without spontaneous rupture of ear drum, right ear Condition: Serious
[2022-07-03 13:29] LABS: BASOPHILS # (AUTO) 0.1 10^3/uL (0.0-0.1); BASOPHILS % (AUTO) 0.4 %; HCT - HEMATOCRIT 38.8 % (37.0-47.0); HGB - HEMOGLOBIN 12.4 g/dL (12.0-16.0); LYMPHOCYTES # (AUTO) 1.5 10^3/uL (1.5-3.5); LYMPHOCYTES % (AUTO) 13.8 %; MEAN CORPUSCULAR HEMOGLOBIN 28.2 pg (27.0-31.0); MEAN CORPUSCULAR VOLUME 88.4 fL (81.0-99.0); MEAN PLATELET VOLUME 9.8 fL (7.9-10.8); MONOCYTES # (AUTO) 1.1 10^3/uL (0.0-1.0); MONOCYTES % (AUTO) 9.6 %; NEUTROPHILS # (AUTO) 8.4 10^3/uL (1.5-6.6); NEUTROPHILS % (AUTO) 75.3 %; PLT - PLATELET COUNT 218 10^3/uL (130-450); RED BLOOD COUNT 4.39 10^6/uL (4.20-5.40); RED CELL DISTRIBUTION WIDTH 14.2 % (12.0-15.0); WHITE BLOOD COUNT 11.2 x10^3/uL (4.8-10.8)
--- NOTE | 2022-07-03 13:29 | XRAY Report ---
PROCEDURE: Chest 1 View X-Ray INDICATIONS: cough TECHNIQUE: One view of the chest was acquired. COMPARISON: None. FINDINGS: Surgical changes and devices: Left chest wall pacemaker leads are in the region of right atrium and right ventricle.. Lungs and pleura: No pleural effusions or pneumothorax. Mild pulmonary vascular congestion is seen. Ill-defined opacity in left lung base is seen. Mediastinum: Mediastinal contours appear normal. Heart size is enlarged. Bones and chest wall: No suspicious bony lesions. Overlying soft tissues appear unremarkable. IMPRESSION: Mild congestive changes. Suggestion of small infiltrates/atelectasis at left lung base. No pneumothor ax. Reviewed by: Dar Villalta MD on 07/03/2022 1:28 PM PDT Approved by: Dar Villalta MD on 07/03/2022 1:28 PM PDT Station ID: [id number]
[2022-07-03] MEDS ORDERED: cefTRIAXone 1 GM in SODIUM CHLORIDE 0.9% MINIBAG 100 ML IV STA (13:32)
[2022-07-03] MEDS ORDERED: AZITHROMYCIN INJ 500 MG in SODIUM CHLORIDE 0.9% 250 ML IV STA (13:32)
[2022-07-03 13:41] LABS: ALBUMIN 3.8 g/dL (3.2-5.5); BILIRUBIN,TOTAL 1.4 mg/dL (0.2-1.0); CALCIUM 9.1 mg/dL (8.5-10.3); POTASSIUM 4.1 mmol/L (3.5-5.0); TOTAL PROTEIN 7.6 g/dL (6.7-8.2)
[2022-07-03 14:26] LABS: B. PARAPERTUSSIS- RESP PCR PAN NOT DETECTED; B. PERTUSSIS- RESP PCR PANEL NOT DETECTED; C. PNEUMONIAE- RESP PCR PANEL NOT DETECTED; CORONAVIRUS 229E-RESP PCR NOT DETECTED; CORONAVIRUS HKU1-RESP PCR NOT DETECTED; CORONAVIRUS NL63-RESP PCR NOT DETECTED; CORONAVIRUS OC43-RESP PCR NOT DETECTED; HUMAN METAPNEUMOVIRUS NOT DETECTED; INFLUENZA A- RESP PCR PANEL NOT DETECTED; INFLUENZA B - RESP PCR PANEL NOT DETECTED; M. PNEUMONIAE- RESP PCR PANEL NOT DETECTED; PARAINFLUENZA VIRUS 1 NOT DETECTED; PARAINFLUENZA VIRUS 2 NOT DETECTED; PARAINFLUENZA VIRUS 3 NOT DETECTED; PARAINFLUENZA VIRUS 4 NOT DETECTED; RHINOVIRUS/ENTEROVIRUS NOT DETECTED; RSV- RESP PCR PANEL NOT DETECTED; SARS-CoV-2 -RESP PCR PANEL NOT DETECTED
[2022-07-03] MEDS ORDERED: SODIUM CHLORIDE FLUSH 0.9% 10 ML SYRINGE IVP PRN (17:09)
[2022-07-03] MEDS ORDERED: HYDROcod/ACETAM 5/325 MG TABLET PO PRN (17:09)
[2022-07-03] MEDS ORDERED: ONDANSETRON ODT 4 MG TABLET TL PRN (17:09)
--- NOTE | 2022-07-03 18:08 | HISTORY & PHYSICAL EXAMINATION ---
Chief Complaint - Chief Complaint Chief Complaint: Fall at home History of Present Illness - Admitted From Admitted From:: ED - History Obtained From Records Reviewed: ED records History obtained from: Patient, ED physician Exam Limitations: None - History of Present Illness HPI Comment/Other: Patient is a 81-year-old female with past medical history of HTN, HLD, LAYLA, type II heart block with pacemaker, CAD, TIA who presents after 5 days of productive cough, shortness of breath on and off fevers culminating in significant weakness to the extent that she had a ground-level fall, was assisting herself to the ground during the fall. Paramedics were called. She was noted to be febrile prior to arrival. In the ED, patient was not hypoxic on room air. She had minimal leukocytosis. No other significant lab abnormalities. Chest x-ray was suggestive of left- sided pneumonia. She was given Rocephin and azithromycin. Attempt was made to discharge the patient home however she complained of significant weakness that she would not be able to care for herself at home so observation admission was requested. History - Past Medical History Cardiovascular: reports: Hypertension, [place], Arrhythmia Respiratory: reports: None Neuro: reports: TIA Endocrine/Autoimmune: reports: Type 2 diabetes GI: reports: None DATA TRANSCRIBER: reports: None : reports: None HEENT: reports: None Psych: reports: Depression Musculoskeletal: reports: None Derm: reports: None MRSA Hx?: No - Past Surgical History /DATA TRANSCRIBER: reports: Hysterectomy Cardiovascular: reports: Coronary stent, Pacemaker - Family & Social History Family History: Mother: , Father: - POLST Patient has POLST: No Meds/Allgy - Home Medications Home Medications: Ambulatory Orders Medication Instructions Recorded Confirmed Aspirin Chewable [[place] 81 mg PO DAILY 07/11/16 07/03/22 Aspirin] Sertraline [Zoloft] 50 mg ORAL DAILY 01/04/17 07/03/22 Gabapentin [Neurontin] 1,200 mg PO BID 06/05/21 07/03/22 Rosuvastatin Calcium [Crestor] 20 mg PO DAILY 06/05/21 07/03/22 atenoloL [Tenormin] 25 mg PO DAILY #30 tablet 06/15/21 07/03/22 lisinopriL [Lisinopril] 10 mg PO QPM #30 tablet 06/15/21 07/03/22 Ropinirole HCl 0.5 mg PO DAILY 11/26/21 07/03/22 Cyclobenzaprine [Flexeril] 10 mg PO Q6HR PRN 12/06/21 12/24/21 HYDROcod/ACETAM 5/325 [[place] 5/325] 1 tab PO Q6HR PRN 12/06/21 07/03/22 Albuterol Sulf [Ventolin Hfa 1 - 2 puffs INH Q4HR PRN #1 each 05/09/22 Inhaler] Benzonatate [Tessalon] 200 mg PO TID PRN #20 cap 05/09/22 - Allergies Allergies/Adverse Reactions: Allergies Allergy/AdvReac Type Severity Reaction Status Date / Time nitrofurantoin Allergy Rash Verified 07/03/22 13:50 [From Macrobid] nitroglycerin AdvReac Unknown severe Verified 07/03/22 13:50 hypotension Review of Systems - Constitutional Constitutional: reports: Fatigue, Fever, Malaise - Cardiovascular Cariovascular: denies: Irregular heart rate, Chest pain - Respiratory Respiratory: reports: Cough, Wheezing - Gastrointestinal Gastrointestinal: reports: Abdominal pain, Abdominal distention, Constipation - All Other Systems All Other Systems: reports: Reviewed and negative Prior Level of Functionality: Independent Exam - Vital Signs Reviewed Vital Signs: Yes Vital Signs: Vital Signs x48h Temp Pulse Resp BP Pulse Ox 07/03/22 17:30 60 22 126/60 92 07/03/22 17:06 22 133/62 H 07/03/22 15:02 60 20 106/78 94 07/03/22 13:00 37.7 C 60 23 135/66 H 95 - Physical Exam General Appearance: positive: No acute distress, Alert, Mild distress Eyes Bilateral: positive: Normal inspection Respiratory: positive: Chest non-tender, No respiratory distress, Other (Diminished breath sounds, L lower lung white) Cardiovascular: positive: Regular rate & rhythm, No murmur, No gallop Abdomen: positive: Non-tender, No organomegaly, Nml bowel sounds Back: positive: Nml inspection Skin: positive: Color nml, No rash, Warm, Dry. negative: Cyanosis Extremities: negative: No pedal edema, Pedal edema Neurologic/Psychiatric: positive: Oriented x3, CN's nml (2-12), Motor nml, Sensation nml Conclusion/Plan - Problem List (1) Community acquired pneumonia Conclusion/Plan: Patient not hypoxic on room air Is moderately wheezy Continue IV ceftriaxone and azithromycin As needed nebs Supportive care (3) ROM (right otitis media) Conclusion/Plan: Abx as above will cover Qualifiers: Otitis media type: suppurative Chronicity: acute Recurrence: non- recurrent Spontaneous tympanic membrane rupture: without spontaneous rupture Qualified Code(s): H66.001 - Acute suppurative otitis media without spontaneous rupture of ear drum, right ear (4) Generalized weakness Conclusion/Plan: 2/2 to PNA Monitor Consider PT eval if unable to ambulate tomorrow (5) History of hypertension Conclusion/Plan: BP mildly elevated Resume home meds (6) Depression Conclusion/Plan: Cont home Zoloft Qualifiers: Depression Type: major depressive disorder - Lab Results Lab results reviewed: Yes Fish Bones: 07/03/22 13:23 07/03/22 13:23 - Diagnostic Imaging Results Diagnostic Imaging Results: positive: Final report reviewed
[2022-07-03] MEDS ORDERED: BENZONATATE 200 MG PO PRN (18:18)
[2022-07-03] MEDS: SODIUM CHLORIDE 0.9% 1,000 ML IV SCH (18:21)
[2022-07-03] MEDS ORDERED: BENZONATATE 100 MG CAPSULE PO PRN (18:27)
[2022-07-03] MEDS: ATORVASTATIN 40 MG TABLET PO SCH (20:31)
[2022-07-03] MEDS: ACETAMINOPHEN 325 MG TABLET PO PRN (20:31)
[2022-07-03] MEDS: BENZONATATE 100 MG CAPSULE PO PRN (20:31)
[2022-07-03] MEDS: lisinopriL 5 MG TABLET PO SCH (20:31)
[2022-07-03] MEDS: GABAPENTIN 400 MG CAPSULE PO SCH (20:31)
[2022-07-03] MEDS ORDERED: NON FORMULARY MED (Lisinopril [Lisinopril] 10 MG Tablet) PO SCH (21:00)
[2022-07-03] MEDS ORDERED: GABAPENTIN 600 MG PO SCH (21:00)
[2022-07-03 21:25] LABS: BILIRUBIN,URINE NEGATIVE (NEGATIVE); GLUCOSE, URINE (UA) NEGATIVE (NEGATIVE); KETONES,URINE (UA) TRACE mg/dL (NEGATIVE); LEUKOCYTE ESTERASE, URINE MODERATE (NEGATIVE); NITRITE,URINE NEGATIVE (NEGATIVE); OCCULT BLOOD,URINE SMALL (NEGATIVE); PH,URINE 6.5 PH (5.0-7.5); PROTEIN,URINE 100 mg/dL (NEGATIVE); UROBILINOGEN,URINE 1 (NORMAL) E.U./dL (NORMAL)
[2022-07-03 21:28] LABS: BACTERIA,URINE Few /HPF (None Seen); CLARITY,URINE HAZY (CLEAR); SQUAMOUS EPITHELIAL CELL,UR RARE Squamous (<= Few); WBC CLUMPS,URINE PRESENT; WBC,URINE >25 /HPF (0-5)
[2022-07-03] MEDS ORDERED: IPRATROPIUM/ALBUTEROL 3 ML NEB INH PRN (22:19)
[2022-07-03] MEDS: SODIUM CHLORIDE FLUSH 0.9% 10 ML SYRINGE IVP SCH (23:54)
[2022-07-04] MEDS: SODIUM CHLORIDE 0.9% 1,000 ML IV SCH (05:15)
[2022-07-04 05:38] LABS: HCT - HEMATOCRIT 34.9 % (37.0-47.0); HGB - HEMOGLOBIN 11.3 g/dL (12.0-16.0); MEAN CORPUSCULAR HEMOGLOBIN 29.3 pg (27.0-31.0); MEAN CORPUSCULAR HGB CONC 32.4 g/dL (32.0-36.0); MEAN CORPUSCULAR VOLUME 90.4 fL (81.0-99.0); MEAN PLATELET VOLUME 9.9 fL (7.9-10.8); RED BLOOD COUNT 3.86 10^6/uL (4.20-5.40); RED CELL DISTRIBUTION WIDTH 14.3 % (12.0-15.0); WHITE BLOOD COUNT 7.8 x10^3/uL (4.8-10.8)
[2022-07-04 05:51] LABS: CALCIUM 8.5 mg/dL (8.5-10.3); CREATININE 0.8 mg/dL (0.4-1.0); POTASSIUM 3.6 mmol/L (3.5-5.0)
[2022-07-04] MEDS: GABAPENTIN 400 MG CAPSULE PO SCH ×2 (08:17→20:35)
[2022-07-04] MEDS: ASPIRIN CHEW 81 MG TABLET PO SCH (08:17)
[2022-07-04] MEDS: atenoloL 25 MG TABLET PO SCH (08:18)
[2022-07-04] MEDS: SERTRALINE 25 MG TABLET PO SCH (08:18)
[2022-07-04] MEDS: rOPINIRole 0.25 MG TABLET PO SCH (08:18)
[2022-07-04] MEDS: SODIUM CHLORIDE FLUSH 0.9% 10 ML SYRINGE IVP SCH ×2 (08:27→16:34)
[2022-07-04] MEDS ORDERED: ROPINIROLE HCL 0.5 MG PO SCH (09:00)
[2022-07-04] MEDS ORDERED: ROSUVASTATIN CALCIUM 20 MG PO SCH (09:00)
[2022-07-04] MEDS ORDERED: cefTRIAXone 1 GM in SODIUM CHLORIDE 0.9% MINIBAG 100 ML IV SCH (09:00)
[2022-07-04] MEDS ORDERED: AZITHROMYCIN INJ 500 MG in SODIUM CHLORIDE 0.9% 250 ML IV SCH (09:00)
[2022-07-04] MEDS: ACETAMINOPHEN 325 MG TABLET PO PRN (13:52)
--- NOTE | 2022-07-04 14:29 | PROVIDER PROGRESS NOTE ---
Assessment/Plan - Problem List (1) Community acquired pneumonia Assessment/Plan: Improving Stable on room air Patient still complains of significant weakness, was offered discharge home but feels like she may need another day due to inability to ambulate further than the door to the room. Continue antibiotics, switch to p.o., probable discharge tomorrow (2) HLD (hyperlipidemia) Assessment/Plan: Resume home statin (3) ROM (right otitis media) Qualifiers: Otitis media type: suppurative Chronicity: acute Recurrence: non- recurrent Spontaneous tympanic membrane rupture: without spontaneous rupture Qualified Code(s): H66.001 - Acute suppurative otitis media without spontaneous rupture of ear drum, right ear Assessment/Plan: Continue antibiotics as above (4) Generalized weakness Assessment/Plan: Making some improvement but still having a difficult time ambulating much further than the door to the room (5) History of hypertension Assessment/Plan: BP well controlled Continue current meds (6) Depression Qualifiers: Depression Type: major depressive disorder - Current Meds Current Meds: Current Medications Generic Name Dose Route Start Last Admin Trade Name Freq PRN Reason Stop Dose Admin Acetaminophen 650 mg 07/03/22 17:09 07/04/22 13:52 Acetaminophen 325 Mg Tablet PO 650 mg Q4HR PRN Administration Pain 1 to 4, or Fever Aspirin 81 mg 07/04/22 09:00 07/04/22 08:17 Aspirin Chew 81 Mg Tablet PO 81 mg DAILY LUCIANA Administration Atenolol 25 mg 07/04/22 09:00 07/04/22 08:18 Atenolol 25 Mg Tablet PO 25 mg DAILY LUCIANA Administration Atorvastatin Calcium 40 mg 07/03/22 21:00 07/03/22 20:31 Atorvastatin 40 Mg Tablet PO 40 mg QPM LUCIANA Administration Benzonatate 200 mg 07/03/22 18:31 07/03/22 20:31 Benzonatate 100 Mg Capsule PO 200 mg TID PRN Administration Cough Gabapentin 1,200 mg 07/03/22 21:00 07/04/22 08:17 Gabapentin 400 Mg Capsule PO 1,200 mg BID LUCIANA Administration Sodium Chloride 1,000 mls @ 100 mls/hr 07/03/22 18:00 07/04/22 05:15 Normal Saline 0.9% IV 100 mls/hr .Q10H LUCIANA Administration Ceftriaxone Sodium 1 gm/ 100 mls @ 200 mls/hr 07/04/22 09:00 07/04/22 08:50 Sodium Chloride IV 07/07/22 09:29 Infused DAILY LUCIANA Infusion Azithromycin 500 mg/ Sodium 250 mls @ 250 mls/hr 07/04/22 09:00 07/04/22 08:55 Chloride IV 07/05/22 09:59 250 mls/hr DAILY LUCIANA Administration Lisinopril 10 mg 07/03/22 20:30 07/03/22 20:31 Lisinopril 5 Mg Tablet PO 10 mg 2030 LUCIANA Administration Ropinirole HCl 0.5 mg 07/04/22 09:00 07/04/22 08:18 Ropinirole 0.25 Mg Tablet PO 0.5 mg DAILY LUCIANA Administration Sertraline HCl 50 mg 07/04/22 09:00 07/04/22 08:18 Sertraline 25 Mg Tablet PO 50 mg DAILY LUCIANA Administration Sodium Chloride 10 ml 07/04/22 01:00 07/04/22 08:27 Sodium Chloride Flush 0.9% 10 Ml Syringe IVP Not Given 0100,0900,1700 LUCIANA - Lab Result Lab results reviewed: Yes Fish Bone Diagrams: 07/04/22 05:19 07/04/22 05:19 - Additional Planning My Orders: My Active Orders 07/03/22 17:09 Activity Orders [RC] Q2HR IO [RC] IOSHIFT Incentive Spirometry - RT [RC] TID Initiate Bowel Care Protocol [RC] .protocol Initiate Line Care Protocol [RC] QSHIFT Initiate Personal Care Protoco [RC] .protocol Oxygen Therapy [RC] .PRN Vital Signs [RC] 0800,1600,0000 Acetaminophen [Tylenol] 650 mg PO Q4HR PRN HYDROcod/ACETAM 5/325 [[place] 5/325] 1 tab PO Q4HR PRN Ondansetron Odt [Zofran Odt] 4 mg TL Q6HR PRN Sodium Chloride Flush 0.9% [Normal Saline Flush 0.9%] 10 ml IVP PRN PRN Code Status [OTHERS] Routine Condition of Patient [OTHERS] Routine DVT Prophylaxis [OTHERS] Routine 07/03/22 17:11 SCDs [RC] QSHIFT 07/03/22 18:00 Sodium Chloride 0.9% [Normal Saline 0.9%] 1,000 ml IV 100 mls/hr 07/03/22 18:31 Benzonatate [Tessalon] 200 mg PO TID PRN 07/03/22 20:30 lisinopriL [Zestril] 10 mg PO 2030 07/03/22 21:00 Atorvastatin [Lipitor] 40 mg PO QPM Gabapentin [Neurontin] 1,200 mg PO BID 07/04/22 01:00 Sodium Chloride Flush 0.9% [Normal Saline Flush 0.9%] 10 ml IVP 0100,0900,1700 07/04/22 Breakfast Cardiac Diet [DIET] 07/04/22 09:00 Aspirin Chewable [[place] Aspirin] 81 mg PO DAILY Azithromycin Inj [Zithromax Inj] 500 mg Sodium Chloride 0.9% [Normal Saline 0.9%] 250 ml IV DAILY Sertraline [Zoloft] 50 mg PO DAILY atenoloL [Tenormin] 25 mg PO DAILY cefTRIAXone [Rocephin] 1 gm Sodium Chloride 0.9% Minibag [Normal Saline 0.9% Minibag] 100 ml IV DAILY rOPINIRole [Requip] 0.5 mg PO DAILY 07/05/22 05:00 BMP - BASIC METABOLIC PANEL [CHEM] DAILYLAB CBC W/O DIFF (HEMOGRAM) [HEME] DAILYLAB 07/06/22 05:00 BMP - BASIC METABOLIC PANEL [CHEM] DAILYLAB CBC W/O DIFF (HEMOGRAM) [HEME] DAILYLAB Subjective - Subjective Patient Reports: Feeling Better, Fatigue Objective Vital Signs: Vital Signs - 24 hr 07/03/22 07/03/22 07/03/22 15:02 17:06 17:30 Temperature Heart Rate 60 60 Heart Rate [ Brachial] Respiratory 20 22 22 Rate Blood Pressure 106/78 133/62 H 126/60 Blood Pressure [Right Brachial artery] O2 Saturation 94 92 07/03/22 07/03/22 07/03/22 18:34 20:02 23:58 Temperature 37.0 C 37.9 C 36.2 C L Heart Rate Heart Rate [ 60 60 60 Brachial] Respiratory 24 24 18 Rate Blood Pressure Blood Pressure 157/87 H 150/56 H 128/58 L [Right Brachial artery] O2 Saturation 96 93 90 L 07/04/22 07/04/22 03:30 08:05 Temperature 36.4 C L 36.4 C L Heart Rate Heart Rate [ 60 59 L Brachial] Respiratory 20 18 Rate Blood Pressure Blood Pressure 118/53 L 118/59 L [Right Brachial artery] O2 Saturation 94 96 Oxygen O2 Source [With Activity] Nasal cannula O2 Source [Without Activity] Room air O2 Source Room air I&O (Last 24 Hrs): Intake and Output Totals x24h 07/02/22 07/03/22 07/04/22 23:59 23:59 23:59 Intake Total 1940 1340 Output Total 500 Balance 1940 840 General: Alert, Oriented x3 HEENT: Atraumatic Cardiovascular: Regular rate, Normal S1, Normal S2 Respiratory: Chest non-tender, No respiratory distress, Breath sounds nml Abdomen: Normal bowel sounds, Soft Extremities: No clubbing, No edema - Results Results: Laboratory Results WBC 7.8 x10^3/uL (4.8-10.8) 07/04/22 05:19 RBC 3.86 10^6/uL (4.20-5.40) L 07/04/22 05:19 Hgb 11.3 g/dL (12.0-16.0) L 07/04/22 05:19 Hct 34.9 % (37.0-47.0) L 07/04/22 05:19 MCV 90.4 fL (81.0-99.0) 07/04/22 05:19 MCH 29.3 pg (27.0-31.0) 07/04/22 05:19 MCHC 32.4 g/dL (32.0-36.0) 07/04/22 05:19 RDW 14.3 % (12.0-15.0) 07/04/22 05:19 Plt Count 186 10^3/uL (130-450) 07/04/22 05:19 MPV 9.9 fL (7.9-10.8) 07/04/22 05:19 Neut # (Auto) 8.4 10^3/uL (1.5-6.6) H 07/03/22 13:23 Lymph # (Auto) 1.5 10^3/uL (1.5-3.5) 07/03/22 13:23 [place] # (Auto) 1.1 10^3/uL (0.0-1.0) H 07/03/22 13:23 Eos # (Auto) 0.0 10^3/uL (0.0-0.7) 07/03/22 13:23 Baso # (Auto) 0.1 10^3/uL (0.0-0.1) 07/03/22 13:23 Absolute Nucleated RBC 0.00 x10^3/uL 07/03/22 13:23 Nucleated RBC % 0.0 /100WBC 07/03/22 13:23 Sodium 137 mmol/L (135-145) 07/04/22 05:19 Potassium 3.6 mmol/L (3.5-5.0) 07/04/22 05:19 Chloride 104 mmol/L (101-111) 07/04/22 05:19 Carbon Dioxide 26 mmol/L (21-32) 07/04/22 05:19 Anion Gap 7.0 (6-13) 07/04/22 05:19 BUN 17 mg/dL (6-20) 07/04/22 05:19 Creatinine 0.8 mg/dL (0.4-1.0) 07/04/22 05:19 Estimated GFR (MDRD) 69 (>89) L 07/04/22 05:19 Glucose 114 mg/dL (70-100) H 07/04/22 05:19 Lactic Acid 1.3 mmol/L (0.5-2.2) 07/03/22 13:23 Calcium 8.5 mg/dL (8.5-10.3) 07/04/22 05:19 Total Bilirubin 1.4 mg/dL (0.2-1.0) H 07/03/22 13:23 AST 24 IU/L (10-42) 07/03/22 13:23 ALT 17 IU/L (10-60) 07/03/22 13:23 Alkaline Phosphatase 47 IU/L (42-121) 07/03/22 13:23 Total Protein 7.6 g/dL (6.7-8.2) 07/03/22 13:23 Albumin 3.8 g/dL (3.2-5.5) 07/03/22 13:23 Globulin 3.8 g/dL (2.1-4.2) 07/03/22 13:23 Albumin/Globulin Ratio 1.0 (1.0-2.2) 07/03/22 13:23 Urine Color YELLOW 07/03/22 21:15 Urine Clarity HAZY (CLEAR) 07/03/22 21:15 Urine pH 6.5 PH (5.0-7.5) 07/03/22 21:15 Ur Specific [place] 1.020 (1.002-1.030) 07/03/22 21:15 Urine Protein 100 mg/dL (NEGATIVE) H 07/03/22 21:15 Urine Glucose (UA) NEGATIVE mg/dL (NEGATIVE) 07/03/22 21:15 Urine Ketones TRACE mg/dL (NEGATIVE) 07/03/22 21:15 Urine Occult Blood SMALL (NEGATIVE) H 07/03/22 21:15 Urine Nitrite NEGATIVE (NEGATIVE) 07/03/22 21:15 Urine Bilirubin NEGATIVE (NEGATIVE) 07/03/22 21:15 Urine Urobilinogen 1 (NORMAL) E.U./dL (NORMAL) 07/03/22 21:15 Ur Leukocyte Esterase MODERATE (NEGATIVE) H 07/03/22 21:15 Urine RBC 6-10 /HPF (0-5) H 07/03/22 21:15 Urine WBC >25 /HPF (0-5) H 07/03/22 21:15 Urine WBC Clumps PRESENT 07/03/22 21:15 Ur Squamous Epith Cells RARE Squamous (<= Few) 07/03/22 21:15 Urine Bacteria Few /HPF (None Seen) 07/03/22 21:15 Urine Culture Comments INDICATED 07/03/22 21:15 Nasal Adenovirus (PCR) NOT DETECTED 07/03/22 13:15 Nasal B. parapertussis DNA (PCR) NOT DETECTED 07/03/22 13:15 Nasal Coronavir 229E PCR NOT DETECTED 07/03/22 13:15 Nasal Coronavir HKU1 PCR NOT DETECTED 07/03/22 13:15 Nasal Coronavir NL63 PCR NOT DETECTED 07/03/22 13:15 Nasal Coronavir OC43 PCR NOT DETECTED 07/03/22 13:15 Nasal Enterovir/Rhinovir PCR NOT DETECTED 07/03/22 13:15 Nasal Influenza B PCR NOT DETECTED 07/03/22 13:15 Nasal Influenza A PCR NOT DETECTED 07/03/22 13:15 Nasal Parainfluen 1 PCR NOT DETECTED 07/03/22 13:15 Nasal Parainfluen 2 PCR NOT DETECTED 07/03/22 13:15 Nasal Parainfluen 3 PCR NOT DETECTED 07/03/22 13:15 Nasal Parainfluen 4 PCR NOT DETECTED 07/03/22 13:15 Nasal RSV (PCR) NOT DETECTED 07/03/22 13:15 Nasal B.pertussis DNA PCR NOT DETECTED 07/03/22 13:15 Nasal C.pneumoniae (PCR) NOT DETECTED 07/03/22 13:15 Billy Human Metapneumo PCR NOT DETECTED 07/03/22 13:15 Nasal M.pneumoniae (PCR) NOT DETECTED 07/03/22 13:15 Nasal SARS-CoV-2 (PCR) NOT DETECTED 07/03/22 13:15 - Procedures Procedures: Procedures INTRODUCTION OF ANTI-INFLAM INTO PERIPH VEIN, PERC APPROACH (06/07/21) ABX Reporting Has patient been on IV antibiotics over the past 48 hours?: Yes
[2022-07-04] MEDS: lisinopriL 5 MG TABLET PO SCH (20:35)
[2022-07-04] MEDS: ATORVASTATIN 40 MG TABLET PO SCH (20:35)
[2022-07-04] MEDS: CEFPODOXIME PROXETIL 100 MG TABLET PO SCH (20:35)
[2022-07-05] MEDS: SODIUM CHLORIDE FLUSH 0.9% 10 ML SYRINGE IVP SCH ×2 (01:48→07:53)
[2022-07-05] MEDS: ACETAMINOPHEN 325 MG TABLET PO PRN ×2 (03:42→07:52)
[2022-07-05 05:31] LABS: HCT - HEMATOCRIT 31.1 % (37.0-47.0); HGB - HEMOGLOBIN 10.2 g/dL (12.0-16.0); MEAN CORPUSCULAR HEMOGLOBIN 29.1 pg (27.0-31.0); MEAN CORPUSCULAR HGB CONC 32.8 g/dL (32.0-36.0); MEAN CORPUSCULAR VOLUME 88.6 fL (81.0-99.0); RED BLOOD COUNT 3.51 10^6/uL (4.20-5.40); RED CELL DISTRIBUTION WIDTH 14.3 % (12.0-15.0); WHITE BLOOD COUNT 7.2 x10^3/uL (4.8-10.8)
[2022-07-05 05:43] LABS: CALCIUM 8.5 mg/dL (8.5-10.3); CREATININE 0.8 mg/dL (0.4-1.0); POTASSIUM 3.6 mmol/L (3.5-5.0)
[2022-07-05] MEDS: SERTRALINE 25 MG TABLET PO SCH (07:52)
[2022-07-05] MEDS: atenoloL 25 MG TABLET PO SCH (07:52)
[2022-07-05] MEDS: ASPIRIN CHEW 81 MG TABLET PO SCH (07:52)
[2022-07-05] MEDS: rOPINIRole 0.25 MG TABLET PO SCH (07:53)
[2022-07-05] MEDS: CEFPODOXIME PROXETIL 100 MG TABLET PO SCH (07:53)
[2022-07-05] MEDS: GABAPENTIN 400 MG CAPSULE PO SCH (07:53)
[2022-07-05] MEDS ORDERED: AZITHROMYCIN 250 MG TABLET PO SCH (09:00)
[2022-07-05] MEDS: BENZONATATE 100 MG CAPSULE PO PRN (09:06)
--- NOTE | 2022-07-05 09:23 | PHARMACY PROGRESS NOTE ---
- Best Possible Medication History Admit Date and Time: 07/03/22 1041 Processed by: Pharmacy Medication History completed: Yes Patient Interview: Completed Secondary Source(s): Pharmacy records As the person ultimately responsible for medication therapy, providers are able to order a medication from an existing home medication list in [facility] via the "Reconcile Routine" prior to Confirmation of that medication by credit support specialist. Such practice is discouraged except when the physician, in their clinical judgment, deems that a medical need exists for a medication without regard to previous use.
--- NOTE | 2022-07-05 12:23 | Discharge Plan ---
Discharge Plan Problem Reviewed?: Yes Disposition: Home, Self Care Condition: Serious Prescriptions: Cefpodoxime Proxetil [Vantin] 200 mg PO BID 3 Days #3 tab Diet: Cardiac Activity Restrictions: Activity as Tolerated Weight Bearing: Full Weight Instruction Topics: Pneumonia No Smoking: If you smoke, Please STOP! Call for help.
--- NOTE | 2022-07-05 13:12 | DISCHARGE SUMMARY ---
Discharge Summary Admit Date: 07/03/22 Discharge Date: 07/05/22 Discharging Provider: Dr Demario Patel Condition at Discharge: Serious Discharge Disposition: 01 Home, Self Care - DIAGNOSES Admission Diagnoses: Community-acquired pneumoniaimproved Right otitis mediaimproved Generalized weaknessimproved Hypertensionstable Depressionstable Discharge Diagnoses with Status of Each Condition: Communicare pneumoniaimproved Hyperlipidemiastable Right otitis media-Improved Generalized weaknessimproved Hypertensionstable Depressionstable - HPI History of Present Illness: Patient is a 81-year-old female with past medical history of HTN, HLD, LAYLA, type II heart block with pacemaker, CAD, TIA who presents after 5 days of productive cough, shortness of breath on and off fevers culminating in significant weakness to the extent that she had a ground-level fall, was assisting herself to the ground during the fall. Paramedics were called. She was noted to be febrile prior to arrival. In the ED, patient was not hypoxic on room air. She had minimal leukocytosis. No other significant lab abnormalities. Chest x-ray was suggestive of left- sided pneumonia. She was given Rocephin and azithromycin. Attempt was made to discharge the patient home however she complained of significant weakness that she would not be able to care for herself at home so observation admission was requested. - HOSPITAL COURSE Hospital Course: Patient was admitted on azithromycin and Rocephin. She was not on oxygen and was placed on observation due to significant weakness rather than hypoxia. She did well and was afebrile. Her leukocytosis resolved by the following day after admission. She was still feeling a bit weak so she was kept 1 more night at which point she was feeling better and though still somewhat tired she was able to self ambulate around the lim on her own using a walker. Given that she has a walker at home and has support at home she was deemed to be safe for medical discharge and she was sent home with an additional 3 days of Vantin to complete her antibiotic course. - ALLERGIES Allergies/Adverse Reactions: Allergies Allergy/AdvReac Type Severity Reaction Status Date / Time nitrofurantoin Allergy Rash Verified 07/03/22 13:50 [From Macrobid] nitroglycerin AdvReac Unknown severe Verified 07/03/22 13:50 hypotension - MEDICATIONS Home Medications: Ambulatory Orders Medication Instructions Recorded Confirmed Aspirin Chewable [[place] Peter 81 mg PO DAILY 07/11/16 07/03/22 Aspirin] Sertraline [Zoloft] 50 mg ORAL DAILY 01/04/17 07/03/22 Rosuvastatin Calcium [Crestor] 20 mg PO DAILY 06/05/21 07/03/22 atenoloL [Tenormin] 25 mg PO DAILY #30 tablet 06/15/21 07/03/22 lisinopriL [Lisinopril] 10 mg PO QPM #30 tablet 06/15/21 07/03/22 Ropinirole HCl 0.5 mg PO HS 11/26/21 07/05/22 Cyclobenzaprine [Flexeril] 10 mg PO Q6HR PRN 12/06/21 07/05/22 HYDROcod/ACETAM 5/325 [Bennett 5/325] 1 tab PO Q6HR PRN 12/06/21 07/03/22 Albuterol Sulf [Ventolin Hfa 1 - 2 puffs INH Q4HR PRN #1 each 05/09/22 07/05/22 Inhaler] Benzonatate [Tessalon] 200 mg PO TID PRN #20 cap 05/09/22 07/05/22 Benzonatate [Tessalon] 200 mg PO TID PRN cap 07/05/22 Cefpodoxime Proxetil [Vantin] 200 mg PO BID 3 Days #3 tab 07/05/22 Cranberry Fruit Extract [Cranberry] 1 tab PO DAILY 07/05/22 07/05/22 Multivitamin W/Minerals [Theragran 1 tab PO DAILY 07/05/22 07/05/22 M] Pregabalin 1 cap PO TID 07/05/22 07/05/22 lisinopriL [Zestril] 10 mg PO 2030 tab 07/05/22 - PHYSICAL EXAM AT DISCHARGE General Appearance: positive: No acute distress Eyes Bilateral: positive: Normal inspection Respiratory: positive: Chest non-tender, No respiratory distress, Breath sounds nml Cardiovascular: positive: Regular rate & rhythm, No murmur, No gallop Abdomen: positive: Non-tender, No organomegaly, Nml bowel sounds, No distention Skin: positive: Color nml, No rash Extremities: positive: No pedal edema Neurologic/Psychiatric: positive: Oriented x3, CN's nml (2-12), Depressed mood/affect - LABS Result Diagrams: 07/05/22 04:57 07/05/22 04:57 - FOLLOW UP Follow Up: PCP - TIME SPENT Time Spent in Discharge (Minutes): 36
[2022-07-05 14:17] VITALS: BP 158/65
== END 2022-07-05 15:41 | disposition home or self-care (01) ==
LOC: EDUNIT# → ED 12:48 → MS2 17:09
PROVIDERS: ADMIT Family Medicine Sports Medicine; ATTEND Family Medicine Sports Medicine
DX: J18.9 Pneumonia, unspecified organism (principal); H66.001 Acute suppurative otitis media without spontaneous rupture of ear drum, right ear; F32.A Depression, unspecified; E78.5 Hyperlipidemia, unspecified; R53.1 Weakness; I10 Essential (primary) hypertension; Z95.0 Presence of cardiac pacemaker; Z20.822 Contact with and (suspected) exposure to COVID-19; I25.2 Old myocardial infarction; I25.10 Atherosclerotic heart disease of native coronary artery without angina pectoris; I44.1 Atrioventricular block, second degree
CPT/HCPCS: 36415; 71045; 80048; 80053; 81001; 83605; 85025; 85027; 87040; 87086; 87633; 93005; 94640; 96361; 96365; 96366; 96367; 96376; 99285; A9270; G0378

== ENCOUNTER 2022-12-21 23:24 | Outpatient (CLI) | payer MEDICARE | END 2022-12-21 23:25 | disposition EMS.NT | LOC: EMS 23:24 | DX: M25.562 Pain in left knee (principal) ==

== ENCOUNTER 2022-12-27 09:24 | Emergency (ER) | payer MEDICARE, MEDICAID ==
--- NOTE | 2022-12-27 10:39 | ED Physician Documentation ---
History of Present Illness - Stated complaint Stated Complaint: LT KNEE PX - Chief complaint Chief Complaint: General - History obtained from History obtained from: Patient - History of Present Illness Timing: How many weeks ago (1) Pain level max: 7 Pain level now: 5 - Additonal information Additional information: Patient is an 82-year-old female who states that 1 week ago she twisted on her left knee. She states that ever since that time she has had pain in the left knee, worse with movement, better with rest. Has not taken anything for pain. No numbness, tingling. No bruising. No swelling. Has not seen her PCP for this. No history of any surgery. Pain is mostly in the anterolateral aspect of the knee and radiates down the leg. 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 : None HEENT: None Psych: Depression Musculoskeletal: None Derm: None - Past Surgical History Past Surgical History: Yes /COAT EXAMINER: Hysterectomy Cardiovascular: Coronary stent, Pacemaker - Present Medications Home Medications: Ambulatory Orders Medication Instructions Recorded Confirmed Aspirin Chewable [St Peter 81 mg PO DAILY 07/11/16 07/03/22 Aspirin] Sertraline [Zoloft] 50 mg ORAL DAILY 01/04/17 07/03/22 Rosuvastatin Calcium [Crestor] 20 mg PO DAILY 06/05/21 07/03/22 atenoloL [Tenormin] 25 mg PO DAILY #30 tablet 06/15/21 07/03/22 lisinopriL [Lisinopril] 10 mg PO QPM #30 tablet 06/15/21 07/03/22 Ropinirole HCl 0.5 mg PO HS 11/26/21 07/05/22 Cyclobenzaprine [Flexeril] 10 mg PO Q6HR PRN 12/06/21 07/05/22 HYDROcod/ACETAM 5/325 [[place] 5/325] 1 tab PO Q6HR PRN 12/06/21 07/03/22 Albuterol Sulf [Ventolin Hfa 1 - 2 puffs INH Q4HR PRN #1 each 05/09/22 07/05/22 Inhaler] Benzonatate [Tessalon] 200 mg PO TID PRN #20 cap 05/09/22 07/05/22 Benzonatate [Tessalon] 200 mg PO TID PRN cap 07/05/22 Cefpodoxime Proxetil [Vantin] 200 mg PO BID 3 Days #3 tab 07/05/22 Cefpodoxime Proxetil [Vantin] 200 mg PO Q12H 3 Days #6 tablet 07/05/22 Cranberry Fruit Extract [Cranberry] 1 tab PO DAILY 07/05/22 07/05/22 Multivitamin W/Minerals [Theragran 1 tab PO DAILY 07/05/22 07/05/22 M] Pregabalin 1 cap PO TID 07/05/22 07/05/22 lisinopriL [Zestril] 10 mg PO 2030 tab 07/05/22 Diclofenac Sodium 1% Gel [Voltaren 4 gm TOP QID PRN #1 each 12/27/22 Gel] - Allergies Allergies/Adverse Reactions: Allergies Allergy/AdvReac Type Severity Reaction Status Date / Time nitrofurantoin Allergy Rash Verified 07/03/22 13:50 [From Macrobid] nitroglycerin AdvReac Unknown severe Verified 07/03/22 13:50 hypotension - Social History Does the pt smoke?: No Smoking Status: Never smoker Does the pt drink ETOH?: No Does the pt have substance abuse?: No - Immunizations Immunizations are current?: Yes - POLST Patient has POLST: No PD ED PE NORMAL - Vitals Vital signs reviewed: Yes - General General: Alert and oriented X 3, No acute distress - HEENT HEENT: PERRL, Moist mucous membranes - Neck Neck: Supple, no meningeal sign - Cardiac Cardiac: RRR, Strong equal pulses - Respiratory Respiratory: No respiratory distress, Clear bilaterally - Derm Derm: Warm and dry - Extremities Extremities: Other (L knee - ACL, MCL, PCL, LCL are intact. Mild joint effusion. Mild tenderness on the left knee. No joint line tenderness. No deformity. Neurovascular intact) - Neuro Neuro: Alert and oriented X 3 - Psych Psych: Normal mood, Normal affect Results - Vitals Vitals: Vital Signs - 24 hr 12/27/22 12/27/22 09:42 13:37 Temperature 36.8 C 36.8 C Heart Rate 60 61 Respiratory 18 17 Rate Blood Pressure 133/61 H 135/62 H O2 Saturation 94 95 Oxygen O2 Source [] Nasal cannula O2 Source [] Room air O2 Source Room air - Rads (name of study) Left knee x-ray Relevant Findings:: Final report received, See rad report L knee CT Relevant Findings:: Final report received, See rad report PD Medical Decision Making - ED course Complexity details: reviewed results, re-evaluated patient, considered differential, d/w patient ED course: 82-year-old female with continued left knee pain after a fall/twist 1 week ago. No acute findings on x-ray other than a joint effusion. Possible meniscus injury? CT scan does not reveal any fractures as well. Mateo bandage was applied. Patient will utilize a walker at home. Declines any pain medication for home. We will have her follow-up with her PCP for further care. No indication for emergent drainage of the joint. Patient counseled regarding signs and symptoms for which I believe and urgent re-evaluation would be necessary. Patient with good understanding of and agreement to plan and is comfortable going home at this time This document was made in part using voice recognition software. While efforts are made to proofread this document, sound alike and grammatical errors may occur. Departure - Departure Disposition: 01 Home, Self Care Clinical Impression: Knee effusion, left Left knee sprain Qualifiers: Encounter type: initial encounter Involved ligament of knee: unspecified ligament Qualified Code(s): S83.92XA - Sprain of unspecified site of left knee, initial encounter Condition: Good Instructions: ED Effusion Knee Follow-Up: ABBIE JUAREZ MD [Primary Care Provider] - Within 1 week Prescriptions: Diclofenac Sodium 1% Gel [Voltaren Gel] 4 gm TOP QID PRN #1 each PRN Reason: knee pain Comments: Your prescriptions were sent to [facility] in [place]. Please follow-up with your doctor for further care. Please return if you worsen. Your x-ray does show a knee effusion, this is swelling in the joint. Your CT does not show any evidence of fracture. You may have injury to the cartilage, this can be followed up with your doctor. Recommend rest, elevation, ice and compression. Forms: PCP List Discharge Date/Time: 12/27/22 13:37
--- NOTE | 2022-12-27 11:14 | XRAY Report ---
PROCEDURE: Knee 4 View LT INDICATIONS: twist, knee pain x 1 week TECHNIQUE: 4 views of the left knee(s) were acquired. COMPARISON: None. FINDINGS: Bones: No fractures or dislocations. No suspicious bony lesions. Tricompartmental joint space breonna rowing with associated osteophytosis. Soft tissues: Moderate knee joint effusion. No suspicious soft tissue calcifications or masses. IMPRESSION: Moderate knee joint effusion, without displaced fracture. Internal derangement not excluded. Mild to moderate tricompartmental osteoarthritis. Kellgren-Tyrell scale of osteoarthritis: 2. Reviewed by: Talib Hanley on 12/27/2022 11:13 AM PDT Approved by: Talib Hanley on 12/27/2022 11:13 AM PDT Station ID: [id number]
--- NOTE | 2022-12-27 12:40 | CT Report ---
PROCEDURE: LOWER EXTREMITY WO - LT INDICATIONS: L knee effusion TECHNIQUE: Noncontrast 3-mm axial sections acquired from the distal tibial shaft to the talar dome, with coronal and sagittal reformats. For radiation dose reduction, the following was used: automated exposure c ontrol, adjustment of mA and/or kV according to patient size. COMPARISON: None. FINDINGS: Image quality: Excellent. Bones: Tricompartmental osteophytosis. Subchondral bony cystic change is the lateral femoral condyle . No displaced fracture. No cortical step-off. Soft tissues: Moderate knee joint effusion. Impression: Moderate knee joint effusion without displaced fracture. Moderate tricompartmental osteoarthritis. Reviewed by: Talib Hanley on 12/27/2022 12:39 PM PDT Approved by: Talib Hanley on 12/27/2022 12:39 PM PDT Station ID: [id number]
[2022-12-27 13:41] VITALS: BP 135/62; O2SAT 95
== END 2022-12-27 13:37 | disposition home or self-care (01) ==
LOC: ED 09:24
DX: S83.92XA Sprain of unspecified site of left knee, initial encounter (principal); X50.1XXA Overexertion from prolonged static or awkward postures, initial encounter; Z95.0 Presence of cardiac pacemaker
CPT/HCPCS: 99283

== ENCOUNTER 2023-06-09 18:54 | Outpatient (CLI) | payer MEDICARE, MEDICAID | END 2023-06-09 18:55 | disposition critical access hospital (66) | LOC: EMS 18:54 | DX: R06.02 Shortness of breath (principal); R06.2 Wheezing; M79.10 Myalgia, unspecified site | CPT/HCPCS: A0425; A0429 ==

== ENCOUNTER 2023-06-09 19:12 | Emergency (ER) | payer MEDICARE, MEDICAID ==
--- NOTE | 2023-06-09 19:25 | ED Physician Documentation ---
PD HPI DYSPNEA - Stated complaint Stated Complaint: COUGH, SOA X 2 DAYS - Chief complaint Chief Complaint: Resp - History obtained from History obtained from: Patient, EMS - Additional information Additional information: This is an 82-year-old woman who presents by ambulance from [facility]. For about 2 days she has had severe body aches, cough, shortness of breath. No measured fevers. She has a past medical history of hypertension, hyperlipidemia, LAYLA, heart block with pacemaker, CAD, TIA. [facility] PD PAST MEDICAL HISTORY - Past Medical History Past Medical History: Yes Cardiovascular: Hypertension, High cholesterol, [place], Arrhythmia Respiratory: None Neuro: TIA Endocrine/Autoimmune: None GI: None [employer] DISPATCHER: None : Frequency HEENT: None Psych: Depression Musculoskeletal: Osteoarthritis, Chronic back pain Derm: None - Past Surgical History Past Surgical History: Yes /[employer] DISPATCHER: Hysterectomy Cardiovascular: Coronary stent, Pacemaker - Present Medications Home Medications: Ambulatory Orders Medication Instructions Recorded Confirmed Aspirin Chewable [St Peter 81 mg PO DAILY 07/11/16 06/09/23 Aspirin] Rosuvastatin Calcium [Crestor] 20 mg PO DAILY 06/05/21 06/09/23 lisinopriL [Lisinopril] 10 mg PO QPM #30 tablet 06/15/21 06/09/23 Ropinirole HCl 0.5 mg PO HS 11/26/21 06/09/23 Cyclobenzaprine [Flexeril] 10 mg PO Q6HR PRN 12/06/21 06/09/23 Albuterol Sulf [Ventolin Hfa 1 - 2 puffs INH Q4HR PRN #1 each 05/09/22 06/09/23 Inhaler] Cranberry Fruit Extract [Cranberry] 1 tab PO DAILY 07/05/22 06/09/23 Multivitamin W/Minerals [Theragran 1 tab PO DAILY 07/05/22 06/09/23 M] Pregabalin 50 mg PO TID 07/05/22 06/09/23 Albuterol Sulf [Ventolin Hfa 1 - 2 puffs INH Q4HR PRN #1 each 06/09/23 Inhaler] atenoloL [Tenormin] 1 tab PO DAILY 06/09/23 06/09/23 predniSONE [Deltasone] 20 mg PO [id number] #21 tab 06/09/23 - Allergies Allergies/Adverse Reactions: Allergies Allergy/AdvReac Type Severity Reaction Status Date / Time nitrofurantoin Allergy Rash Verified 06/09/23 19:25 [From Macrobid] nitroglycerin AdvReac Unknown severe Verified 06/09/23 19:25 hypotension - Social History Does the pt smoke?: No Smoking Status: Never smoker Does the pt drink ETOH?: No Does the pt have substance abuse?: No - Immunizations Immunizations are current?: Yes - POLST Patient has POLST: No PD ED PE NORMAL - Vitals Vital signs reviewed: Yes - General General: Alert and oriented X 3, No acute distress - HEENT HEENT: Pharynx benign - Neck Neck: Supple, no meningeal sign, No bony TTP - Cardiac Cardiac: RRR, No murmur - Respiratory Respiratory: No respiratory distress, Other (wheezy throughout w/o focal findings) - Abdomen Abdomen: Non tender - Derm Derm: No rash - Extremities Extremities: No edema, No calf tenderness / cord - Neuro Neuro: Alert and oriented X 3, Normal speech Eye Opening: Spontaneous Motor: Obeys Commands Verbal: Oriented GCS Score: 15 - Psych Psych: Normal mood, Normal affect Results - Vitals Vitals: Vital Signs - 24 hr 06/09/23 06/09/23 19:19 20:00 Temperature 36.4 C L Heart Rate 60 60 Respiratory 16 20 Rate Blood Pressure 129/58 L O2 Saturation 88 L Oxygen O2 Source [With Activity] Nasal cannula O2 Source [Without Activity] Room air O2 Source Room air Oxygen Flow Rate 1 - Labs Labs: Laboratory Tests 06/09/23 06/09/23 06/09/23 19:39 19:39 19:39 WBC 4.6 L RBC 4.32 Hgb 11.9 L Hct 38.9 MCV 90.0 MCH 27.5 MCHC 30.6 L RDW 14.2 Plt Count MPV Not Reportable Neut # (Auto) 2.7 Lymph # (Auto) 1.3 L [place] # (Auto) 0.5 Eos # (Auto) 0.1 Baso # (Auto) 0.0 Absolute Nucleated RBC 0.00 Nucleated RBC % 0.0 Platelet Estimate NORMAL (130-450,000) Platelet Morphology PLATELET CLUMPING VBG pH VBG pCO2 VBG pO2 VBG HCO3 VBG Total CO2 VBG O2 Saturation VBG Base Excess Sodium 135 Potassium 4.1 Chloride 102 Carbon Dioxide 27 Anion Gap 6.0 BUN 27 H Creatinine 1.1 Estimated GFR (MDRD) 48 L Glucose 139 H Lactic Acid 1.3 Calcium 9.7 Total Bilirubin 0.5 AST 18 ALT 14 Alkaline Phosphatase 58 Total Protein 6.8 Albumin 4.0 Globulin 2.8 Albumin/Globulin Ratio 1.4 Nasal Adenovirus (PCR) Nasal B. parapertussis DNA (PCR) Nasal Coronavir 229E PCR Nasal Coronavir HKU1 PCR Nasal Coronavir NL63 PCR Nasal Coronavir OC43 PCR Nasal Enterovir/Rhinovir PCR Nasal Influenza B PCR Nasal Influenza A PCR Nasal Parainfluen 1 PCR Nasal Parainfluen 2 PCR Nasal Parainfluen 3 PCR Nasal Parainfluen 4 PCR Nasal RSV (PCR) Nasal B.pertussis DNA PCR Nasal C.pneumoniae (PCR) Billy Human Metapneumo PCR Nasal M.pneumoniae (PCR) Nasal SARS-CoV-2 (PCR) 06/09/23 06/09/23 19:39 19:39 WBC RBC Hgb Hct MCV MCH MCHC RDW Plt Count MPV Neut # (Auto) Lymph # (Auto) [place] # (Auto) Eos # (Auto) Baso # (Auto) Absolute Nucleated RBC Nucleated RBC % Platelet Estimate Platelet Morphology VBG pH 7.388 VBG pCO2 38.7 L VBG pO2 44.7 VBG HCO3 22.8 L VBG Total CO2 24.0 VBG O2 Saturation 81.7 H VBG Base Excess -1.9 Sodium Potassium Chloride Carbon Dioxide Anion Gap BUN Creatinine Estimated GFR (MDRD) Glucose Lactic Acid Calcium Total Bilirubin AST ALT Alkaline Phosphatase Total Protein Albumin Globulin Albumin/Globulin Ratio Nasal Adenovirus (PCR) NOT DETECTED Nasal B. parapertussis DNA (PCR) NOT DETECTED Nasal Coronavir 229E PCR NOT DETECTED Nasal Coronavir HKU1 PCR NOT DETECTED Nasal Coronavir NL63 PCR NOT DETECTED Nasal Coronavir OC43 PCR NOT DETECTED Nasal Enterovir/Rhinovir PCR NOT DETECTED Nasal Influenza B PCR NOT DETECTED Nasal Influenza A PCR NOT DETECTED Nasal Parainfluen 1 PCR NOT DETECTED Nasal Parainfluen 2 PCR NOT DETECTED Nasal Parainfluen 3 PCR NOT DETECTED Nasal Parainfluen 4 PCR NOT DETECTED Nasal RSV (PCR) NOT DETECTED Nasal B.pertussis DNA PCR NOT DETECTED Nasal C.pneumoniae (PCR) NOT DETECTED Billy Human Metapneumo PCR NOT DETECTED Nasal M.pneumoniae (PCR) NOT DETECTED Nasal SARS-CoV-2 (PCR) NOT DETECTED - Rads (name of study) cxr Relevant Findings:: Final report received, EMP independent interpretation of test PD Medical Decision Making - ED course ED course: 82-year-old woman presents with cough and now shortness of breath. Initial sat was 88 but after a DuoNeb her sats were better. There is concern for COVID as she is from a facility that is inundated right now but her COVID test was negative. CBC demonstrates lymphopenia, likely viral and CMP was grossly unremarkable. I do not see anything that would need antibiotics but I am starting her on steroids. Although the radiologist felt that CHF/pulmonary edema was likely on her x-ray, this does not fit the clinical picture which is that more of a viral pneumonitis. Departure - Departure Disposition: 01 Home, Self Care Clinical Impression: Bronchitis Condition: Good Record reviewed to determine appropriate education?: Yes Instructions: ED Bronchitis Asthmatic Prescriptions: Albuterol Sulf [Ventolin Hfa Inhaler] 1 - 2 puffs INH Q4HR PRN #1 each PRN Reason: Shortness Of Air/Wheezing predniSONE [Deltasone] 20 mg PO [id number] #21 tab Comments: You were seen today for what sounds like a viral bronchitis. Your COVID test was negative. I am starting you on steroids and an inhaler. Call your doctor to arrange a follow-up appointment, make the next available appointment. In the interim, return anytime if worse or if new symptoms develop. Forms: PCP List
[2023-06-09 19:46] LABS: VBG HCO3 22.8 mmol/L (23-28); VBG PCO2 38.7 mmHg (41-51); VBG PH 7.388 (7.31-7.41); VBG PO2 44.7 mmHg (25-47)
[2023-06-09 19:47] LABS: BASOPHILS % (AUTO) 0.9 %; EOSINOPHILS # (AUTO) 0.1 10^3/uL (0.0-0.7); EOSINOPHILS % (AUTO) 2.6 %; HCT - HEMATOCRIT 38.9 % (37.0-47.0); HGB - HEMOGLOBIN 11.9 g/dL (12.0-16.0); LYMPHOCYTES # (AUTO) 1.3 10^3/uL (1.5-3.5); LYMPHOCYTES % (AUTO) 27.6 %; MEAN CORPUSCULAR HEMOGLOBIN 27.5 pg (27.0-31.0); MEAN CORPUSCULAR HGB CONC 30.6 g/dL (32.0-36.0); MONOCYTES # (AUTO) 0.5 10^3/uL (0.0-1.0); NEUTROPHILS # (AUTO) 2.7 10^3/uL (1.5-6.6); NEUTROPHILS % (AUTO) 57.7 %; RED BLOOD COUNT 4.32 10^6/uL (4.20-5.40); RED CELL DISTRIBUTION WIDTH 14.2 % (12.0-15.0); VBG BASE EXCESS -1.9 mmol/L (-2 - +2); VBG OXYGEN SATURATION 81.7 % (60-80); WHITE BLOOD COUNT 4.6 x10^3/uL (4.8-10.8)
[2023-06-09] MEDS: BENZONATATE 100 MG CAPSULE PO STA (19:54)
[2023-06-09 19:57] LABS: ALBUMIN/GLOBULIN RATIO 1.4 (1.0-2.2); BILIRUBIN,TOTAL 0.5 mg/dL (0.2-1.0); CALCIUM 9.7 mg/dL (8.5-10.3); CREATININE 1.1 mg/dL (0.6-1.3); POTASSIUM 4.1 mmol/L (3.5-4.5); TOTAL PROTEIN 6.8 g/dL (6.4-8.9)
[2023-06-09] MEDS: IPRATROPIUM/ALBUTEROL 3 ML NEB INH STA (20:04)
[2023-06-09 20:06] LABS: PLATELET ESTIMATE, MANUAL NORMAL (130-450,000) (NORMAL); PLATELET MORPHOLOGY PLATELET CLUMPING (NORMAL)
[2023-06-09 21:16] LABS: B. PARAPERTUSSIS- RESP PCR PAN NOT DETECTED; B. PERTUSSIS- RESP PCR PANEL NOT DETECTED; C. PNEUMONIAE- RESP PCR PANEL NOT DETECTED; CORONAVIRUS 229E-RESP PCR NOT DETECTED; CORONAVIRUS HKU1-RESP PCR NOT DETECTED; CORONAVIRUS NL63-RESP PCR NOT DETECTED; CORONAVIRUS OC43-RESP PCR NOT DETECTED; HUMAN METAPNEUMOVIRUS NOT DETECTED; INFLUENZA A- RESP PCR PANEL NOT DETECTED; INFLUENZA B - RESP PCR PANEL NOT DETECTED; M. PNEUMONIAE- RESP PCR PANEL NOT DETECTED; PARAINFLUENZA VIRUS 1 NOT DETECTED; PARAINFLUENZA VIRUS 2 NOT DETECTED; PARAINFLUENZA VIRUS 3 NOT DETECTED; PARAINFLUENZA VIRUS 4 NOT DETECTED; RHINOVIRUS/ENTEROVIRUS NOT DETECTED; RSV- RESP PCR PANEL NOT DETECTED; SARS-CoV-2 -RESP PCR PANEL NOT DETECTED
--- NOTE | 2023-06-09 21:19 | XRAY Report ---
PROCEDURE: Chest 1V INDICATIONS: cough TECHNIQUE: One view of the chest was acquired. COMPARISON: 07/03/2022 FINDINGS: Surgical changes and devices: Dual-lead left-sided pacemaker present. Lungs and pleura: Diffuse thickening of the interstitial markings and crowded bronchovascular markin gs in the lower lungs. Overall moderately low lung volumes compared to the prior exam. No large pleur al effusion or pneumothorax. Mediastinum: Moderate cardiomegaly. No significant central venous congestion at this point. Stable a ortic contour. Bones and chest wall: No suspicious bony lesions. Overlying soft tissues appear unremarkable. IMPRESSION: Diffuse interstitial thickening may be edema or interstitial pneumonitis. In the setting of cardiomeg jesus and pacemaker, edema is favored. Correlate with BNP. Reviewed by: Rimma Ferrera MD on 06/09/2023 9:18 PM PDT Approved by: Rimma Ferrera MD on 06/09/2023 9:18 PM PDT Station ID: [id number]
[2023-06-09] MEDS: predniSONE 20 MG TABLET PO STA (21:26)
[2023-06-09 21:40] VITALS: BP 125/69; O2SAT 94
== END 2023-06-09 21:37 | disposition home or self-care (01) ==
LOC: EDUNIT# → ED 19:12
DX: J40 Bronchitis, not specified as acute or chronic (principal); I10 Essential (primary) hypertension; E78.5 Hyperlipidemia, unspecified; Z95.0 Presence of cardiac pacemaker; Z20.822 Contact with and (suspected) exposure to COVID-19; Z79.82 Long term (current) use of aspirin; Z79.899 Other long term (current) drug therapy
CPT/HCPCS: 36415; 71045; 80053; 82803; 83605; 85025; 87633; 94640; 94664; 99284; A9270; J7512

== ENCOUNTER 2023-12-12 10:45 | Outpatient (CLI) | payer MEDICARE, MEDICAID ==
[2023-12-12 18:03] LABS: BASOPHILS # (AUTO) 0.1 10^3/uL (0.0-0.1); BASOPHILS % (AUTO) 0.9 %; EOSINOPHILS # (AUTO) 0.3 10^3/uL (0.0-0.7); EOSINOPHILS % (AUTO) 4.8 %; HCT - HEMATOCRIT 42.7 % (37.0-47.0); HGB - HEMOGLOBIN 12.8 g/dL (12.0-16.0); LYMPHOCYTES # (AUTO) 1.5 10^3/uL (1.5-3.5); LYMPHOCYTES % (AUTO) 23.7 %; MEAN CORPUSCULAR HEMOGLOBIN 27.2 pg (27.0-31.0); MEAN CORPUSCULAR VOLUME 90.7 fL (81.0-99.0); MONOCYTES # (AUTO) 0.6 10^3/uL (0.0-1.0); MONOCYTES % (AUTO) 8.7 %; NEUTROPHILS % (AUTO) 61.7 %; PLT - PLATELET COUNT 244 10^3/uL (130-450); RED BLOOD COUNT 4.71 10^6/uL (4.20-5.40); RED CELL DISTRIBUTION WIDTH 14.4 % (12.0-15.0); WHITE BLOOD COUNT 6.5 x10^3/uL (4.8-10.8)
== END 2023-12-12 11:00 | disposition home or self-care (01) ==
LOC: LAB.N 10:45
PROVIDERS: ATTEND Physician Assistant Medical
DX: L30.8 Other specified dermatitis (principal)
CPT/HCPCS: 36415; 85025

== ENCOUNTER 2024-03-03 16:00 | Inpatient (IN) ==
[2024-03-03 16:34] LABS: BASOPHILS % (AUTO) 0.4 %; EOSINOPHILS # (AUTO) 0.1 10^3/uL (0.0-0.7); EOSINOPHILS % (AUTO) 0.8 %; HCT - HEMATOCRIT 40.6 % (37.0-47.0); HGB - HEMOGLOBIN 12.8 g/dL (12.0-16.0); LYMPHOCYTES # (AUTO) 1.5 10^3/uL (1.5-3.5); LYMPHOCYTES % (AUTO) 15.5 %; MEAN CORPUSCULAR HEMOGLOBIN 27.9 pg (27.0-31.0); MEAN CORPUSCULAR HGB CONC 31.5 g/dL (32.0-36.0); MEAN CORPUSCULAR VOLUME 88.6 fL (81.0-99.0); MEAN PLATELET VOLUME 9.8 fL (7.9-10.8); MONOCYTES % (AUTO) 9.9 %; NEUTROPHILS # (AUTO) 7.2 10^3/uL (1.5-6.6); NEUTROPHILS % (AUTO) 73.1 %; PLT - PLATELET COUNT 218 10^3/uL (130-450); RED BLOOD COUNT 4.58 10^6/uL (4.20-5.40); RED CELL DISTRIBUTION WIDTH 15.1 % (12.0-15.0); WHITE BLOOD COUNT 9.9 x10^3/uL (4.8-10.8)
--- NOTE | 2024-03-03 16:45 | ED Physician Documentation ---
History of Present Illness Stated complaint Stated Complaint: GLF/COUGH/SOA Chief complaint Chief Complaint: Trauma Ext History obtained from History obtained from: Patient Additonal information Additional information: 83-year-old female with history of diabetes, atrial fibrillation on Eliquis, congestive heart failure presents by EMS from [facility] for bilateral hip pain and possible fever. Last night while trying to get out of bed the patient states that she slid to the ground, landing on her bottom. She was unable to get up until the morning, when [facility] staff found her laying on the ground. Patient is adamant that she did not hit her head during this event. In the morning the patient was assisted back to her bed by [facility] staff. Later they went to check on her and found her "burning up", however patient states that her temperature at that time was 99 Fahrenheit. She was complaining of bilateral hip pain and 911 was called to bring the patient in for evaluation. Patient incidentally noted to have oxygen saturation is 88% on room air by EMS. She is denying any shortness of breath at this time. Meds/Allgy Home Medications Ambulatory Orders Medication Instructions Recorded Confirmed aspirin 81 mg chewable tablet 81 mg PO DAILY 07/11/16 03/03/24 rosuvastatin 20 mg tablet (Crestor) 20 mg PO DAILY 06/05/21 03/03/24 ropinirole 0.5 mg tablet 0.5 mg PO HS 11/26/21 03/03/24 cyclobenzaprine 10 mg tablet 10 mg PO TID PRN muscle spasm 12/06/21 03/03/24 albuterol sulfate 90 mcg/actuation 1 - 2 puff inhalation Q4HR PRN 05/09/22 03/03/24 aerosol inhaler (Ventolin HFA) Shortness Of Air/Wheezing #1 ea cranberry extract 500 mg tablet 1 tab PO DAILY 07/05/22 03/03/24 jcllnccelaut-otiarqiq-denv 1 tab PO DAILY 07/05/22 03/03/24 fumarate 19 mg-folic acid 400 mcg tablet (Therapeutic-M) pregabalin 50 mg capsule 150 mg PO TID 07/05/22 03/03/24 albuterol sulfate 90 mcg/actuation 1 - 2 puff inhalation Q4HR PRN 06/09/23 03/03/24 aerosol inhaler (Ventolin HFA) Shortness Of Air/Wheezing #1 ea atenolol 25 mg tablet 1 tab PO DAILY 06/09/23 03/03/24 cholecalciferol (vitamin D3) 25 25 mcg PO DAILY 03/03/24 03/03/24 mcg (1,000 unit) capsule collagen,hydrolysate 500 mg-biotin 1 cap PO DAILY 03/03/24 03/03/24 800 mcg-ascorbic acid 50 mg capsule (Collagen 1500 Plus C) hydrocodone 5 mg-acetaminophen 325 1 tab PO TID PRN pain (scale score 03/03/24 03/03/24 mg tablet 4-6) lisinopril 10 mg tablet 10 mg PO DAILY 03/03/24 03/03/24 sertraline 50 mg tablet 50 mg PO DAILY 03/03/24 03/03/24 tramadol 50 mg tablet 50 mg PO BID PRN pain 03/03/24 03/03/24 triamcinolone acetonide 0.1 % 1 applic topical DAILY PRN rash 03/03/24 03/03/24 topical cream apixaban 5 mg tablet (Eliquis) 5 mg PO BID 03/04/24 03/04/24 Allergies Allergies Allergy/AdvReac Type Severity Reaction Status Date / Time nitrofurantoin (From Allergy Rash Verified 03/03/24 16:06 Macrobid) nitroglycerin AdvReac Unknown severe Verified 03/03/24 16:06 hypotension PFSH Social History Social History Smoking Status: Former smoker If you are a former smoker, when did you quit? (Date/Year): 30 years How many cigarettes a day do you smoke? (20 cigarettes=1 Pk): 30 Do you dip or chew tobacco?: No Do you vape?: No Patient requests smoking cessation consult: No Initiate information on smoking cessation: No Living arrangement: At home Relationship: Level: Assisted Home Mobility Equipment: Walker Do you feel safe in your home environment?: Yes Suffered physical, verbal, emotional, or financial abuse?: No History of Abuse: No POLST Patient has POLST: No Exam Constitutional Appears chronically unwell, debilitated, frail HENMT normocephalic and head/scalp atraumatic Eyes PERRL and EOMs intact bilaterally Chest inspection of chest normal Respiratory Slight inspiratory crackles bilaterally Cardiovascular Irregularly irregular rhythm noted Gastrointestinal abdomen normal to inspection and abdomen soft to palpation Extremities normal to inspection No edema. 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 intact, no movement abnormality noted and no focal motor deficit noted Psychiatry mental status grossly normal, oriented x3 and thought process normal Skin skin color normal, no rash, no lesions and no ecchymosis noted Results Vitals Vitals: Vital Signs - 24 hr 03/03/24 16:06 03/03/24 17:11 03/03/24 17:15 Temperature 36.8 C Temperature Source Tympanic Pulse Rate 60 60 Respiratory Rate 20 20 Blood Pressure 136/61 H 136/61 H O2 Saturation 88 L 100 Oxygen Delivery Method Nasal Cannula O2 Source Room air Room air If not protocol: Oxygen Flow, liters/minute 2 Pain Intensity 8 8 03/03/24 17:27 03/03/24 18:20 03/03/24 19:04 Temperature Temperature Source Pulse Rate 60 Respiratory Rate 20 Blood Pressure 92/68 O2 Saturation 94 Oxygen Delivery Method O2 Source Nasal cannula If not protocol: Oxygen Flow, liters/minute 2 Pain Intensity 8 6 6 03/03/24 20:33 Temperature Temperature Source Pulse Rate 84 Respiratory Rate 22 Blood Pressure 92/68 O2 Saturation 88 L Oxygen Delivery Method O2 Source Room air If not protocol: Oxygen Flow, liters/minute Pain Intensity 2 Oxygen O2 Source [With Activity] Nasal cannula O2 Source [Without Activity] Room air O2 Source Room air Labs Labs: Laboratory Tests 03/03/24 03/03/24 16:20 16:29 WBC 9.9 RBC 4.58 Hgb 12.8 Hct 40.6 MCV 88.6 MCH 27.9 MCHC 31.5 L RDW 15.1 H Plt Count 218 MPV 9.8 Neut # (Auto) 7.2 H Lymph # (Auto) 1.5 [place] # (Auto) 1.0 Eos # (Auto) 0.1 Baso # (Auto) 0.0 Absolute Nucleated RBC 0.00 Nucleated RBC % 0.0 Sodium 134 L Potassium 4.2 Chloride 98 L Carbon Dioxide 29 Anion Gap 7.0 BUN 18 Creatinine 1.0 Estimated GFR (MDRD) 53 L Glucose 114 H Calcium 9.7 Total Bilirubin 1.1 H AST 19 ALT 15 Alkaline Phosphatase 57 Total Creatine Kinase 215 Troponin I High Sens 33.8 H* B-Natriuretic Peptide 621 H Total Protein 7.6 Albumin 4.2 Globulin 3.4 Albumin/Globulin Ratio 1.2 Urine Color YELLOW Urine Clarity CLEAR Urine pH 7.0 Ur Specific [place] 1.015 Urine Protein NEGATIVE Urine Glucose (UA) NEGATIVE Urine Ketones NEGATIVE Urine Occult Blood NEGATIVE Urine Nitrite NEGATIVE Urine Bilirubin NEGATIVE Urine Urobilinogen 0.2 (NORMAL) Ur Leukocyte Esterase NEGATIVE Ur Microscopic Review NOT INDICATED Urine Culture Comments NOT INDICATED PD Medical Decision Making ED course Complexity details: reviewed old records, reviewed results, considered differential, d/w patient and d/w family ED course: Bilateral hip pain, possible fever at long-term. Patient does seem to have a deep cough on arrival with in-store crackles present, however she is afebrile in the emergency department. Found to have low oxygen saturations on room air by EMS and placed on supplemental nasal cannula. Patient was removed from supplemental nasal cannula, however she dropped to 87 to 88% on room air with good waveform, and she was placed back on nasal cannula. Laboratory work is reviewed: No leukocytosis, normal hemoglobin, sodium 134, potassium 4.2, creatinine 1.0, GFR 53, which is consistent with patient's previous values. Troponin 33.8, BNP 621. Patient is not complaining of any chest pain or shortness of breath. I suspect this is likely secondary to demand from low oxygen saturations rather than ACS. Chest x-ray shows findings of pulmonary edema. Pelvic x-ray shows no signs of fracture. Patient has been able to get up and down with minimal assistance to bedside commode. IV Lasix ordered. Plan to admit patient as she is requiring supplemental oxygen for pulmonary edema and volume overload. Care of patient signed to Dr. Moreno at 1900 Discharge Plan Discharge Patient Disposition: 66 [facility] DC/Xfer Condition: Stable Clinical Impression: Pulmonary edema, Hypoxia, Bilateral hip pain Interventions: ED Admission Assessment Last Done: 03/03/24 22:21
[2024-03-03 16:52] LABS: ALBUMIN 4.2 g/dL (3.2-5.5); ALBUMIN/GLOBULIN RATIO 1.2 (1.0-2.2); BILIRUBIN,TOTAL 1.1 mg/dL (0.2-1.0); CALCIUM 9.7 mg/dL (8.5-10.3); POTASSIUM 4.2 mmol/L (3.5-4.5); TOTAL PROTEIN 7.6 g/dL (6.4-8.9)
[2024-03-03 17:01] LABS: TROPONIN I HIGH SENSITIVITY 33.8 ng/L (2.3-14.8)
[2024-03-03] MEDS: HYDROcod/ACETAM 5/325 MG TABLET PO STA (17:27)
--- NOTE | 2024-03-03 17:44 | XRAY Report ---
PROCEDURE: XR Chest 1V INDICATIONS: dyspnea, hypoxia TECHNIQUE: One view of the chest was acquired. COMPARISON: 06/09/2023. FINDINGS: Surgical changes and devices: Left chest wall cardiac device shows right atrial and ventricular lead s in unchanged position. Lungs and pleura: Hypoinflated without pleural effusions or pneumothorax. No consolidation. Pulmona ry vasculature is mildly prominent. Mediastinum: Mediastinal contours appear normal. Heart size is normal. Bones and chest wall: No suspicious bony lesions. Overlying soft tissues appear unremarkable. IMPRESSION: Prominence of the pulmonary vasculature which may be partially secondary to hypoinflation but may als o represent early pulmonary edema. Reviewed by: Fiona Otto MD on 03/03/2024 4:43 PM [facility] Approved by: Fiona Otto MD on 03/03/2024 4:43 PM [facility] Station ID: [id number]
--- NOTE | 2024-03-03 17:45 | XRAY Report ---
PROCEDURE: XR Pelvis 1-2V INDICATIONS: FALL OUT OF BED, BILAT HIP PAIN TECHNIQUE: 3 view(s) of the pelvis acquired. COMPARISON: None. FINDINGS: Bones: No fractures or dislocations. No suspicious bony lesions. Soft tissues: Visualized bowel gas pattern is normal. No suspicious soft tissue calcifications. IMPRESSION: No acute bony abnormality. Reviewed by: Fiona Otto MD on 03/03/2024 4:44 PM [facility] Approved by: Fiona Otto MD on 03/03/2024 4:44 PM [facility] Station ID: [id number]
[2024-03-03] MEDS: FUROSEMIDE 40 MG/4 ML VIAL IVP STA (18:16)
[2024-03-03 18:27] LABS: BILIRUBIN,URINE NEGATIVE (NEGATIVE); GLUCOSE, URINE (UA) NEGATIVE (NEGATIVE); KETONES,URINE (UA) NEGATIVE (NEGATIVE); LEUKOCYTE ESTERASE, URINE NEGATIVE (NEGATIVE); NITRITE,URINE NEGATIVE (NEGATIVE); OCCULT BLOOD,URINE NEGATIVE (NEGATIVE); PROTEIN,URINE NEGATIVE (NEGATIVE); UROBILINOGEN,URINE 0.2 (NORMAL) E.U./dL (NORMAL)
[2024-03-03 18:30] LABS: CLARITY,URINE CLEAR (CLEAR)
--- NOTE | 2024-03-03 20:35 | ED Physician Documentation ---
ED Addendum Addendum Addendum: I received signout/turnover of care of this patient from Dr. Link; please see her note for complete H&P. In brief, patient presented to the emergency department due to exacerbation of bilateral hip pain (which temporally was related to a fall she sustained last night). However, she is found to be hypoxic on scene by EMS with pulse ox readings in the upper 80s requiring 2 L nasal cannula oxygen to maintain oxygen saturations at/above 90%. Dr. Link's note indicates that, shortly after ED arrival, the oxygen was discontinued but that her pulse ox rapidly worsened to upper 80s and thus the supplemental oxygen was restarted. Tonight's testing includes chest x-ray with findings suggestive of pulmonary edema, BNP 621. On my shift, yet another attempt was made to wean patient off the supplemental oxygen. The nasal cannula oxygen was stopped and, once again, the patient quickly desaturated to 87 to 88% while awake and good correlating pleth on the monitor. The supplemental oxygen was restarted and I then discussed this case with the on-call [facility] telehealth practitioner who admits patient to [facility]. Discharge Plan Discharge Patient Disposition: 66 [facility] DC/Xfer Condition: Stable Clinical Impression: Pulmonary edema, Hypoxia, Bilateral hip pain Interventions: ED Admission Assessment Last Done: 03/03/24 22:21
[2024-03-03] MEDS ORDERED: HYDROcod/ACET 5/325 Prepack 4 PO PRN (21:32)
[2024-03-03] MEDS ORDERED: ONDANSETRON 4 MG/2 ML VIAL IVP PRN (21:44)
[2024-03-03] MEDS ORDERED: polyethylene glycoL 3350 17 GM PACKET PO PRN (21:44)
--- NOTE | 2024-03-03 21:50 | HISTORY & PHYSICAL EXAMINATION ---
Chief Complaint Chief Complaint Chief Complaint: Weakness and fall with SOB & Cough History of Present Illness Admitted From Admitted From:: ED History Obtained From Records Reviewed: EMR History obtained from: ED staff and Patient Exam Limitations: Telemedicine History of Present Illness HPI Comment/Other: 83YOF c htn, hld, hx of type 2 heart block s/p pacemaker, chronic pain, and restless leg who presented to the ED from her assisted living facility after falling. Patient states she was baseline self prior to the fall. She was in her bed and was getting ready for bed when she suddenly became weak and slid off her bed. No head trauma. No LOC. She reports chills. No fever. She developed SOB and coughing after sliding off her bed. She states no frequent falls. She mentions heart block hx requiring pacemaker. Otherwise no hx of heart attack. She mentioned being on Lasix 3 years ago after COVID infection. She was stopped on Lasix 2/2 low potassium approx 3 yrs ago. She has not noticed swelling in extremities. No sore throat. No runny nose. No chest pain. No palpitation. Here in the ED, patient was noted for hypoxemia requiring O2 support. She was noted for signs of pulmonary edema on CXR. No BLE edema on exam. ED was concerned about CHF and gave patient Lasix and reached out to Hospital Medicine for assistance with further medical management. [facility] Social History Social History Smoking Status: Never smoker If you are a former smoker, when did you quit? (Date/Year): 30 years How many cigarettes a day do you smoke? (20 cigarettes=1 Pk): 30 Do you dip or chew tobacco?: No Do you vape?: No Patient requests smoking cessation consult: No Initiate information on smoking cessation: No Living arrangement: At home Relationship: Do you feel safe in your home environment?: Yes Suffered physical, verbal, emotional, or financial abuse?: No History of Abuse: No POLST Patient has POLST: No Meds/Allgy Home Medications Ambulatory Orders Medication Instructions Recorded Confirmed aspirin 81 mg chewable tablet 81 mg PO DAILY 07/11/16 03/03/24 rosuvastatin 20 mg tablet (Crestor) 20 mg PO DAILY 06/05/21 03/03/24 ropinirole 0.5 mg tablet 0.5 mg PO HS 11/26/21 03/03/24 cyclobenzaprine 10 mg tablet 10 mg PO TID PRN muscle spasm 12/06/21 03/03/24 albuterol sulfate 90 mcg/actuation 1 - 2 puff inhalation Q4HR PRN 05/09/22 03/03/24 aerosol inhaler (Ventolin HFA) Shortness Of Air/Wheezing #1 ea cranberry extract 500 mg tablet 1 tab PO DAILY 07/05/22 03/03/24 qkdrdshpdhuv-ppkyeawh-cilw 1 tab PO DAILY 07/05/22 03/03/24 fumarate 19 mg-folic acid 400 mcg tablet (Therapeutic-M) pregabalin 50 mg capsule 150 mg PO TID 07/05/22 03/03/24 albuterol sulfate 90 mcg/actuation 1 - 2 puff inhalation Q4HR PRN 06/09/23 03/03/24 aerosol inhaler (Ventolin HFA) Shortness Of Air/Wheezing #1 ea atenolol 25 mg tablet 1 tab PO DAILY 06/09/23 03/03/24 cholecalciferol (vitamin D3) 25 25 mcg PO DAILY 03/03/24 03/03/24 mcg (1,000 unit) capsule collagen,hydrolysate 500 mg-biotin 1 cap PO DAILY 03/03/24 03/03/24 800 mcg-ascorbic acid 50 mg capsule (Collagen 1500 Plus C) hydrocodone 5 mg-acetaminophen 325 1 tab PO TID PRN pain (scale score 03/03/24 03/03/24 mg tablet 4-6) lisinopril 10 mg tablet 10 mg PO DAILY 03/03/24 03/03/24 sertraline 50 mg tablet 50 mg PO DAILY 03/03/24 03/03/24 tramadol 50 mg tablet 50 mg PO BID PRN pain 03/03/24 03/03/24 triamcinolone acetonide 0.1 % 1 applic topical DAILY PRN rash 03/03/24 03/03/24 topical cream Allergies Allergies Allergy/AdvReac Type Severity Reaction Status Date / Time nitrofurantoin (From Allergy Rash Verified 03/03/24 16:06 Macrobid) nitroglycerin AdvReac Unknown severe Verified 03/03/24 16:06 hypotension Exam Constitutional Appears chronically unwell, debilitated, frail HENMT normocephalic and head/scalp atraumatic Eyes PERRL and EOMs intact bilaterally Chest inspection of chest normal Respiratory Slight inspiratory crackles bilaterally Cardiovascular Irregularly irregular rhythm noted Gastrointestinal abdomen normal to inspection and abdomen soft to palpation Extremities normal to inspection No edema. 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 no signs of infection. no signs of ACS. iv Lasix. monitor I&O. strict fluid restriction. monitor BMP. echo. prn duoneb. (2) Acute hypoxemic respiratory failure: Plan: 2/2 pulm edema from acute CHF. as noted above, iv Lasix and fluid restrict. monitor daily weight (3) HLD (hyperlipidemia): Plan: managed. contiue home statin therapy (4) Hypertension: Plan: controlled. judiciously continue home atenolol. stable renal function to continue lisinopril (5) Depression: Plan: managed. continue home med Sertraline Qualifiers: Depression Type: major depressive disorder (6) Chronic pain: Plan: no acute exacerbation. continue home pain regimen (7) Restless leg: Plan: managed. continue requip Plan treat CHF exacerbation and acute hypoxemic respiratory failure Lab Results Lab results reviewed: Yes 03/03/24 16:29 03/03/24 16:29 Diagnostic Imaging Results Diagnostic Imaging Results: positive Final report reviewed Diagnostic Imaging Results Comments: pulm edema EKG Results EKG Interpreted Independently: Yes EKG Comparison: Unchanged from prior EKG (atrial paced) Core Measures Anticipated LOS I expect patient to be DC'd or transferred within 96 hours.: Yes Issues Hospital Issues and Management Plan: The patient consented to receive this telemedicine service, which I performed via live two-way audiovisual equipment. The patient is at ([employer]) and I am physically in [facility]. A nurse assisted me in the visit. Full code Daughter SCD, [facility] DO Internal Medicine [facility] Physicians Tele Mac Artist DVT/VTE - Prophylaxis VTE/DVT Device ordered at admit?: Yes Telemedicine Consult Details Provider Location & Consult Time Telemedicine consultation conducted via videoconferencing?: No (Telemedicine device broken. Admission conducted via phone & ED staff) List names and roles of persons who participated in consult:: Patient and ED staff Telemedicine provider location:: [facility] Time Telemedicine consult began:: 21:14 Time Telemedicine consult completed:: 22:14
[2024-03-03] MEDS ORDERED: HYDROcod/ACETAM 5/325 MG TABLET PO PRN (21:58)
[2024-03-03] MEDS: PREGABALIN 25 MG CAPSULE PO SCH (22:48)
[2024-03-04] MEDS: SODIUM CHLORIDE FLUSH 0.9% 10 ML SYRINGE IVP SCH (00:25)
[2024-03-04] MEDS: ACETAMINOPHEN 325 MG TABLET PO PRN (00:31)
[2024-03-04] MEDS: IPRATROPIUM/ALBUTEROL 3 ML NEB INH PRN (00:39)
[2024-03-04 05:11] LABS: BASOPHILS # (AUTO) 0.1 10^3/uL (0.0-0.1); BASOPHILS % (AUTO) 0.5 %; EOSINOPHILS % (AUTO) 0.2 %; HCT - HEMATOCRIT 38.8 % (37.0-47.0); HGB - HEMOGLOBIN 12.2 g/dL (12.0-16.0); LYMPHOCYTES # (AUTO) 1.7 10^3/uL (1.5-3.5); LYMPHOCYTES % (AUTO) 18.2 %; MEAN CORPUSCULAR HGB CONC 31.4 g/dL (32.0-36.0); MEAN PLATELET VOLUME 9.7 fL (7.9-10.8); MONOCYTES # (AUTO) 1.1 10^3/uL (0.0-1.0); MONOCYTES % (AUTO) 11.8 %; NEUTROPHILS # (AUTO) 6.4 10^3/uL (1.5-6.6); PLT - PLATELET COUNT 189 10^3/uL (130-450); RED BLOOD COUNT 4.36 10^6/uL (4.20-5.40); RED CELL DISTRIBUTION WIDTH 15.3 % (12.0-15.0); WHITE BLOOD COUNT 9.3 x10^3/uL (4.8-10.8)
[2024-03-04 05:33] LABS: CALCIUM 9.3 mg/dL (8.5-10.3); CREATININE 1.2 mg/dL (0.6-1.3); MAGNESIUM 1.8 mg/dL (1.7-2.3); PHOSPHORUS 4.7 mg/dL (2.5-5.0); POTASSIUM 4.3 mmol/L (3.5-4.5)
[2024-03-04 05:41] LABS: TROPONIN I HIGH SENSITIVITY 27.7 ng/L (2.3-14.8)
--- NOTE | 2024-03-04 07:59 | PROVIDER PROGRESS NOTE ---
Documented by User: NICK Mathias 03/04/24 15:09 Subjective Prog Note Date Prog Note Date: 03/04/24 Prog Note Time: 07:58 Subjective Subjective: She is more tired today than usual. She is usually a morning person, but does not want to get up this AM. She states that she fell out of bed not last night, but the night before that. She has not noticed any swelling of her ankles. Dr Borrego is her PCP. She states that she had a POLST, that is DNR/comfort measures. She is unable to tell me when her last Echocardiogram was. She was recently placed on Eliquis. Filled in december for 3 mo supply per pharmacist. unclear indication. She has chronic back pain. Current Medications Current Medications Current Medications: Current Medications Generic Name Dose Route Start Last Admin Trade Name Freq PRN Reason Stop Dose Admin Acetaminophen 650 mg 03/03/24 21:44 03/04/24 00:31 Acetaminophen 325 Mg Tablet PO 650 mg Q4HR PRN Administration Pain 1 to 4, or Fever Hydrocodone Bitart/Acetaminophen 1 tab 03/03/24 22:00 Hydrocod/Acetam 5/325 Mg Tablet PO TID PRN Moderate Pain (Level 4-6) Albuterol/Ipratropium 3 ml 03/03/24 21:42 03/04/24 00:39 Ipratropium/Albuterol 3 Ml Neb INH 3 ml Q4HR PRN Administration Wheezing Aspirin 81 mg 03/04/24 09:00 Aspirin Chew 81 Mg Tablet PO DAILY LUCIANA Atenolol 25 mg 03/04/24 09:00 Atenolol 25 Mg Tablet PO DAILY LUCIANA Atorvastatin Calcium 40 mg 03/04/24 21:00 Atorvastatin 40 Mg Tablet PO QPM LUCIANA Furosemide 20 mg 03/04/24 09:00 Furosemide 40 Mg/4 Ml Vial IVP DAILY LUCIANA Heparin Sodium (Porcine) 5,000 unit 03/04/24 09:00 Heparin 5,000 Unit/Ml Vial SUBQ BID LUCIANA Lisinopril 10 mg 03/04/24 09:00 Lisinopril 5 Mg Tablet PO DAILY LUCIANA Multivitamins/Minerals 1 tab 03/04/24 09:00 Multivitamin W/Minerals Tablet PO DAILY LUCIANA Nystatin 1 applic 03/04/24 09:00 Nystatin Powder 15 Gm TOP BID LUCIANA Ondansetron HCl 4 mg 03/03/24 21:44 Ondansetron 4 Mg/2 Ml Vial IVP Q6HR PRN Nausea / Vomiting Polyethylene Glycol 17 gm 03/03/24 21:44 Polyethylene Glycol 3350 17 Gm Packet PO DAILY PRN Constipation Pregabalin 150 mg 03/03/24 22:00 03/04/24 05:25 Pregabalin 25 Mg Capsule PO 150 mg TID LUCIANA Administration Sertraline HCl 50 mg 03/04/24 09:00 Sertraline 50 Mg Tablet PO DAILY LUCIANA Sodium Chloride 10 ml 03/03/24 21:44 Sodium Chloride Flush 0.9% 10 Ml Syringe IVP PRN PRN NEEDED PER PROVIDER ORDERS Sodium Chloride 10 ml 03/04/24 01:00 03/04/24 00:25 Sodium Chloride Flush 0.9% 10 Ml Syringe IVP 10 ml 0100,0900,1700 LUCIANA Administration Tramadol HCl 50 mg 03/03/24 21:32 Tramadol 50 Mg Tablet PO BID PRN PAIN 5-7 Objective Vital Signs/Intake & Output Reviewed Vital Signs: Yes Vital Signs: Vital Signs x48h Temp Pulse Pulse Resp BP Pulse Ox O2 Flow Rate 03/04/24 06:00 37.1 C 77 24 169/89 H 94 2 03/04/24 00:39 65 28 H 3 03/04/24 00:35 3 03/04/24 00:30 37.0 C 60 24 140/53 H 95 3 Intake & Output: Intake & Output 03/01/24 03/02/24 03/03/24 03/04/24 23:59 23:59 23:59 23:59 Intake Total 120 / 120 250 / 250 Output Total 400 / 400 350 / 350 Balance -280 / -280 -100 / -100 Weight (kg) 95 kg 94.5 kg Objective General Appearance: positive No acute distress and Alert Eyes Bilateral: positive Normal inspection ENT: positive ENT inspection nml Neck: positive Nml inspection and Trachea midline Respiratory: positive Chest non-tender, No respiratory distress, Rales (left, clear with cough) and Other (coughs up thick yellow sputum while I am at bedside. ) Cardiovascular: positive Regular rate & rhythm and Other (tele shows paced rhythm) Abdomen: positive Non-tender and No distention Skin: positive Color nml and No rash Extremities: positive Nml appearance and No pedal edema Neurologic/Psychiatric: positive Oriented x3 Lab Results 03/04/24 04:59 03/04/24 04:59 Other Labs: Lab Results x24hrs 03/04/24 03/03/24 03/03/24 Range/Units 04:59 16:29 16:20 WBC 9.3 9.9 (4.8-10.8) x10^3/uL RBC 4.36 4.58 (4.20-5.40) 10^6/uL Hgb 12.2 12.8 (12.0-16.0) g/dL Hct 38.8 40.6 (37.0-47.0) % MCV 89.0 88.6 (81.0-99.0) fL MCH 28.0 27.9 (27.0-31.0) pg MCHC 31.4 L 31.5 L (32.0-36.0) g/dL RDW 15.3 H 15.1 H (12.0-15.0) % Plt Count 189 218 (130-450) 10^3/uL MPV 9.7 9.8 (7.9-10.8) fL Neut # (Auto) 6.4 7.2 H (1.5-6.6) 10^3/uL Lymph # (Auto) 1.7 1.5 (1.5-3.5) 10^3/uL [place] # (Auto) 1.1 H 1.0 (0.0-1.0) 10^3/uL Eos # (Auto) 0.0 0.1 (0.0-0.7) 10^3/uL Baso # (Auto) 0.1 0.0 (0.0-0.1) 10^3/uL Absolute Nucleated RBC 0.00 0.00 x10^3/uL Nucleated RBC % 0.0 0.0 /100WBC Sodium 135 134 L (135-145) mmol/L Potassium 4.3 4.2 (3.5-4.5) mmol/L Chloride 97 L 98 L (101-111) mmol/L Carbon Dioxide 28 29 (21-32) mmol/L Anion Gap 10.0 7.0 (6-13) BUN 22 H 18 (6-20) mg/dL Creatinine 1.2 1.0 (0.6-1.3) mg/dL Estimated GFR (MDRD) 43 L 53 L (>89) Glucose 115 H 114 H (74-104) mg/dL Calcium 9.3 9.7 (8.5-10.3) mg/dL Phosphorus 4.7 (2.5-5.0) mg/dL Magnesium 1.8 (1.7-2.3) mg/dL Total Bilirubin 1.1 H (0.2-1.0) mg/dL AST 19 (10-42) IU/L ALT 15 (10-60) IU/L Alkaline Phosphatase 57 (42-121) IU/L Total Creatine Kinase 215 (30-223) IU/L Troponin I High Sens 27.7 H* 33.8 H* (2.3-14.8) ng/L B-Natriuretic Peptide 277 H 621 H (5-100) pg/mL Total Protein 7.6 (6.4-8.9) g/dL Albumin 4.2 (3.2-5.5) g/dL Globulin 3.4 (2.1-4.2) g/dL Albumin/Globulin Ratio 1.2 (1.0-2.2) Procalcitonin Immunoas 0.15 (<0.5) ng/mL Urine Color YELLOW Urine Clarity CLEAR (CLEAR) Urine pH 7.0 (5.0-7.5) PH Ur Specific Rogers 1.015 (1.002-1.030) Urine Protein NEGATIVE (NEGATIVE) mg/dL Urine Glucose (UA) NEGATIVE (NEGATIVE) mg/dL Urine Ketones NEGATIVE (NEGATIVE) mg/dL Urine Occult Blood NEGATIVE (NEGATIVE) Urine Nitrite NEGATIVE (NEGATIVE) Urine Bilirubin NEGATIVE (NEGATIVE) Urine Urobilinogen 0.2 (NORMAL) (NORMAL) E.U./dL Ur Leukocyte Esterase NEGATIVE (NEGATIVE) Ur Microscopic Review NOT INDICATED Urine Culture Comments NOT INDICATED Assessment/Plan Problem List (1) Acute hypoxemic respiratory failure: Impression: 2/2 pulm edema from acute CHF. iv Lasix and fluid restrict. monitor daily weight 03/04: She remains on oxygen at 2L NC which is not her baseline. At baseline, she manages her own medications, and is ambulatory with a walker at [facility] living. She is - 380 cc so far. PRN karson. I will order PT evaluation as I think she has had an acute decline in her function. (2) Acute exacerbation of CHF (congestive heart failure): Impression: elevated BNP and CXR highly supportive of new onset CHF vs CHF exacerbation. no signs of infection. no signs of ACS. Her troponin shows mild elevation without increase. I will not continue to trend. iv Lasix. monitor I&O. strict fluid restriction. I have ordered BMP for the AM to monitor renal status and potassium. Her BNP has decreased from the time of admission. I have researched old records, I have found an echocardiogram from April 2015. Results are unremarkable at that time. I am awaiting completion of updated echocardiogram. . Qualifiers: Heart failure type: unspecified Qualified Code(s): I50.9 - Heart failure, unspecified (3) HLD (hyperlipidemia): Impression: managed. contiue home statin therapy Qualifiers: Hyperlipidemia type: unspecified Qualified Code(s): E78.5 - Hyperlipidemia, unspecified (4) Hypertension: Impression: controlled. judiciously continue home atenolol. stable renal function to continue lisinopril Qualifiers: Hypertension type: unspecified Qualified Code(s): I10 - Essential (primary) hypertension (5) Depression: Impression: managed. continue home med Sertraline Qualifiers: Depression Type: unspecified Qualified Code(s): F32.A - Depression, unspecified (6) Chronic pain: Impression: no acute exacerbation. continue home pain regimen Qualifiers: Chronic pain type: chronic pain syndrome Qualified Code(s): G89.4 - Chronic pain syndrome (7) Restless leg: Impression: managed. continue requip (8) Ambulatory dysfunction: Impression: As evidenced by her fall out of bed, she is significantly below her baseline level of function. She has been evaluated by PT who is recommending SNF for rehab. She is amenable to this recommendation. I have spent 52 minutes in the care of this patient today. This includes time [id number], review and ordering of diagnostic imaging and laboratory studies.. Monitoring the patient's signs symptoms, evaluation of medication effectiveness and patient's response to treatment. Documented by User: Bertha Salazar MD 03/04/24 17:33 Objective Lab Results 03/04/24 04:59 03/04/24 04:59 Assessment/Plan Problem List (1) Acute hypoxemic respiratory failure: (2) Acute exacerbation of CHF (congestive heart failure): Qualifiers: Heart failure type: unspecified Qualified Code(s): I50.9 - Heart failure, unspecified (3) HLD (hyperlipidemia): Qualifiers: Hyperlipidemia type: unspecified Qualified Code(s): E78.5 - Hyperlipidemia, unspecified (4) Hypertension: Qualifiers: Hypertension type: unspecified Qualified Code(s): I10 - Essential (primary) hypertension (5) Depression: Qualifiers: Depression Type: unspecified Qualified Code(s): F32.A - Depression, unspecified (6) Chronic pain: Qualifiers: Chronic pain type: chronic pain syndrome Qualified Code(s): G89.4 - Chronic pain syndrome (7) Restless leg: (8) Ambulatory dysfunction:
[2024-03-04] MEDS: MULTIVITAMIN W/MINERALS TABLET PO SCH (08:59)
[2024-03-04] MEDS: SERTRALINE 50 MG TABLET PO SCH (08:59)
[2024-03-04] MEDS: lisinopriL 5 MG TABLET PO SCH (08:59)
[2024-03-04] MEDS: atenoloL 25 MG TABLET PO SCH (08:59)
[2024-03-04] MEDS ORDERED: ROSUVASTATIN 20 MG PO SCH (09:00)
[2024-03-04] MEDS: FUROSEMIDE 40 MG/4 ML VIAL IVP SCH (09:00)
[2024-03-04] MEDS: NYSTATIN POWDER 15 GM TOP SCH (09:01)
[2024-03-04] MEDS: HYDROcod/ACETAM 5/325 MG TABLET PO PRN (09:05)
[2024-03-04] MEDS: HEPARIN 5,000 UNIT/ML VIAL SUBQ SCH (09:27)
[2024-03-04] MEDS: ASPIRIN CHEW 81 MG TABLET PO SCH (09:28)
[2024-03-04] MEDS: APIXABAN 5 MG TABLET PO SCH (11:36)
[2024-03-04] MEDS: traMADol 50 MG TABLET PO PRN (11:45)
[2024-03-04] MEDS: FUROSEMIDE 20 MG/2 ML VIAL IVP ONE (15:55)
--- NOTE | 2024-03-04 16:41 | PHARMACY PROGRESS NOTE ---
Best Possible Medication History Admit Date and Time: 03/03/24 [id number] Home Medications Medication Instructions Recorded Confirmed Type aspirin 81 mg chewable tablet 81 mg PO DAILY 07/11/16 03/03/24 History rosuvastatin 20 mg tablet (Crestor) 20 mg PO DAILY 06/05/21 03/03/24 History ropinirole 0.5 mg tablet 0.5 mg PO HS 11/26/21 03/03/24 History cyclobenzaprine 10 mg tablet 10 mg PO TID PRN muscle spasm 12/06/21 03/03/24 History albuterol sulfate 90 mcg/actuation 1 - 2 puff inhalation Q4HR PRN 05/09/22 03/03/24 Rx aerosol inhaler (Ventolin HFA) Shortness Of Air/Wheezing #1 ea cranberry extract 500 mg tablet 1 tab PO DAILY 07/05/22 03/03/24 History hzzubjqcdeih-zijqwwdl-uctw 1 tab PO DAILY 07/05/22 03/03/24 History fumarate 19 mg-folic acid 400 mcg tablet (Therapeutic-M) pregabalin 50 mg capsule 150 mg PO TID 07/05/22 03/03/24 History albuterol sulfate 90 mcg/actuation 1 - 2 puff inhalation Q4HR PRN 06/09/23 03/03/24 Rx aerosol inhaler (Ventolin HFA) Shortness Of Air/Wheezing #1 ea atenolol 25 mg tablet 1 tab PO DAILY 06/09/23 03/03/24 History cholecalciferol (vitamin D3) 25 25 mcg PO DAILY 03/03/24 03/03/24 History mcg (1,000 unit) capsule collagen,hydrolysate 500 mg-biotin 1 cap PO DAILY 03/03/24 03/03/24 History 800 mcg-ascorbic acid 50 mg capsule (Collagen 1500 Plus C) lisinopril 10 mg tablet 10 mg PO DAILY 03/03/24 03/03/24 History sertraline 50 mg tablet 50 mg PO DAILY 03/03/24 03/03/24 History tramadol 50 mg tablet 50 mg PO BID PRN pain 03/03/24 03/03/24 History triamcinolone acetonide 0.1 % 1 applic topical DAILY PRN rash 03/03/24 03/03/24 History topical cream apixaban 5 mg tablet (Eliquis) 5 mg PO BID 03/04/24 03/04/24 History Processed by: Pharmacy Medications reviewed in ED?: No Medication History completed: Yes Patient Interview: Completed Secondary Source(s): Insurance records [facility] Statement: Pt interview completed and [employer] insurance records reviewed with pt. As the person ultimately responsible for medication therapy, providers are able to order a medication from an existing home medication list in [facility] via the "Reconcile Routine" prior to Confirmation of that medication by medical support specialist. Such practice is discouraged except when the physician, in their clinical judgment, deems that a medical need exists for a medication without regard to previous use.
[2024-03-04] MEDS: rOPINIRole 0.25 MG TABLET PO SCH (21:35)
[2024-03-04] MEDS: ATORVASTATIN 40 MG TABLET PO SCH (21:35)
[2024-03-05 05:26] LABS: BASOPHILS # (AUTO) 0.1 10^3/uL (0.0-0.1); BASOPHILS % (AUTO) 0.7 %; EOSINOPHILS # (AUTO) 0.1 10^3/uL (0.0-0.7); EOSINOPHILS % (AUTO) 0.7 %; HGB - HEMOGLOBIN 11.6 g/dL (12.0-16.0); LYMPHOCYTES # (AUTO) 1.6 10^3/uL (1.5-3.5); MEAN CORPUSCULAR HEMOGLOBIN 28.6 pg (27.0-31.0); MEAN CORPUSCULAR HGB CONC 32.2 g/dL (32.0-36.0); MEAN CORPUSCULAR VOLUME 88.7 fL (81.0-99.0); MONOCYTES # (AUTO) 1.3 10^3/uL (0.0-1.0); MONOCYTES % (AUTO) 15.2 %; NEUTROPHILS # (AUTO) 5.8 10^3/uL (1.5-6.6); NEUTROPHILS % (AUTO) 65.2 %; PLT - PLATELET COUNT 213 10^3/uL (130-450); RED BLOOD COUNT 4.06 10^6/uL (4.20-5.40); RED CELL DISTRIBUTION WIDTH 15.6 % (12.0-15.0); WHITE BLOOD COUNT 8.8 x10^3/uL (4.8-10.8)
[2024-03-05 05:43] LABS: CALCIUM 9.2 mg/dL (8.5-10.3); CREATININE 1.6 mg/dL (0.6-1.3); POTASSIUM 4.1 mmol/L (3.5-4.5)
--- NOTE | 2024-03-05 07:14 | PROVIDER PROGRESS NOTE ---
Subjective Prog Note Date Prog Note Date: 03/05/24 Prog Note Time: 07:14 Subjective Subjective: initially seen briefly while sleeping then back to see her after lunch, and discussed with her daughters this afternoon. She continues to have fatigue and shortness of breath. She complains of hip pain that has been persistent this AM, but does very well with OT this afternoon. However, she does not wean off of O2. She denies a history of COPD. She has been prescribed albuterol after a COVID infection, but does not use it. Current Medications Current Medications Current Medications: Current Medications Generic Name Dose Route Start Last Admin Trade Name Freq PRN Reason Stop Dose Admin Acetaminophen 650 mg 03/03/24 21:44 03/04/24 00:31 Acetaminophen 325 Mg Tablet PO 650 mg Q4HR PRN Administration Pain 1 to 4, or Fever Hydrocodone Bitart/Acetaminophen 1 tab 03/03/24 22:00 03/04/24 09:05 Hydrocod/Acetam 5/325 Mg Tablet PO 1 tab TID PRN Administration Moderate Pain (Level 4-6) Albuterol/Ipratropium 3 ml 03/03/24 21:42 03/04/24 00:39 Ipratropium/Albuterol 3 Ml Neb INH 3 ml Q4HR PRN Administration Wheezing Apixaban 5 mg 03/04/24 11:00 03/04/24 21:35 Apixaban 5 Mg Tablet PO 5 mg BID LUCIANA Administration Atenolol 25 mg 03/04/24 09:00 03/04/24 08:59 Atenolol 25 Mg Tablet PO 25 mg DAILY LUCIANA Administration Atorvastatin Calcium 40 mg 03/04/24 21:00 03/04/24 21:35 Atorvastatin 40 Mg Tablet PO 40 mg QPM LUCIANA Administration Cholecalciferol 25 mcg 03/05/24 09:00 Cholecalciferol 25 Mcg Tablet PO DAILY LUCIANA Furosemide 20 mg 03/04/24 09:00 03/04/24 09:00 Furosemide 40 Mg/4 Ml Vial IVP 20 mg DAILY LUCIANA Administration Lisinopril 10 mg 03/04/24 09:00 03/04/24 08:59 Lisinopril 5 Mg Tablet PO 10 mg DAILY LUCIANA Administration Multivitamins/Minerals 1 tab 03/04/24 09:00 03/04/24 08:59 Multivitamin W/Minerals Tablet PO 1 tab DAILY LUCIANA Administration Non-Formulary Medication 1 cap 03/05/24 09:00 [id number]-Ebsbjt-Xdnhsmyv Acid [Collagen 1500 Plus C] PO DAILY LUCIANA Nystatin 1 applic 03/04/24 09:00 03/04/24 21:35 Nystatin Powder 15 Gm TOP 1 applic BID LUCIANA Administration Ondansetron HCl 4 mg 03/03/24 21:44 Ondansetron 4 Mg/2 Ml Vial IVP Q6HR PRN Nausea / Vomiting Polyethylene Glycol 17 gm 03/05/24 09:00 Polyethylene Glycol 3350 17 Gm Packet PO DAILY LUCIANA Pregabalin 150 mg 03/03/24 22:00 03/05/24 05:30 Pregabalin 25 Mg Capsule PO 150 mg TID LUCIANA Administration Ropinirole HCl 0.5 mg 03/04/24 21:00 03/04/24 21:35 Ropinirole 0.25 Mg Tablet PO 0.5 mg HS LUCIANA Administration Sertraline HCl 50 mg 03/04/24 09:00 03/04/24 08:59 Sertraline 50 Mg Tablet PO 50 mg DAILY LUCIANA Administration Sodium Chloride 10 ml 03/03/24 21:44 Sodium Chloride Flush 0.9% 10 Ml Syringe IVP PRN PRN NEEDED PER PROVIDER ORDERS Sodium Chloride 10 ml 03/04/24 01:00 03/05/24 00:53 Sodium Chloride Flush 0.9% 10 Ml Syringe IVP 10 ml 0100,0900,1700 LUCIANA Administration Objective Vital Signs/Intake & Output Reviewed Vital Signs: Yes Vital Signs: Vital Signs x48h Temp Pulse Resp BP Pulse Ox O2 Flow Rate 03/05/24 04:40 36.5 C 60 24 110/47 L 93 4 03/05/24 00:10 36.7 C 60 22 135/57 H 94 4 Intake & Output: Intake & Output 03/02/24 03/03/24 03/04/24 03/05/24 23:59 23:59 23:59 23:59 Intake Total 120 / 120 800 / 800 400 / 400 Output Total 400 / 400 850 / 850 100 / 100 Balance -280 / -280 -50 / -50 300 / 300 Weight (kg) 95 kg 94.5 kg 94.6 kg Objective General Appearance: positive No acute distress and Alert Eyes Bilateral: positive Normal inspection ENT: positive ENT inspection nml Neck: positive Nml inspection and Trachea midline Respiratory: positive Chest non-tender, No respiratory distress and Rales (left, clear with cough) Cardiovascular: positive Regular rate & rhythm and Other (tele shows paced rhythm) Abdomen: positive Non-tender and No distention Skin: positive Color nml and No rash Extremities: positive Nml appearance, No pedal edema and Other (There is no pain on palpation lumbar/paralumbar. no pain on palpation lateral hips (distracted when I examined)) Neurologic/Psychiatric: positive Oriented x3 Lab Results 03/05/24 05:04 03/05/24 05:04 Other Labs: Lab Results x24hrs 03/05/24 Range/Units 05:04 WBC 8.8 (4.8-10.8) x10^3/uL RBC 4.06 L (4.20-5.40) 10^6/uL Hgb 11.6 L (12.0-16.0) g/dL Hct 36.0 L (37.0-47.0) % MCV 88.7 (81.0-99.0) fL MCH 28.6 (27.0-31.0) pg MCHC 32.2 (32.0-36.0) g/dL RDW 15.6 H (12.0-15.0) % Plt Count 213 (130-450) 10^3/uL MPV 10.0 (7.9-10.8) fL Neut # (Auto) 5.8 (1.5-6.6) 10^3/uL Lymph # (Auto) 1.6 (1.5-3.5) 10^3/uL [place] # (Auto) 1.3 H (0.0-1.0) 10^3/uL Eos # (Auto) 0.1 (0.0-0.7) 10^3/uL Baso # (Auto) 0.1 (0.0-0.1) 10^3/uL Absolute Nucleated RBC 0.00 x10^3/uL Nucleated RBC % 0.0 /100WBC Sodium 135 (135-145) mmol/L Potassium 4.1 (3.5-4.5) mmol/L Chloride 96 L (101-111) mmol/L Carbon Dioxide 30 (21-32) mmol/L Anion Gap 9.0 (6-13) BUN 38 H (6-20) mg/dL Creatinine 1.6 H (0.6-1.3) mg/dL Estimated GFR (MDRD) 31 L (>89) Glucose 120 H (74-104) mg/dL Calcium 9.2 (8.5-10.3) mg/dL Assessment/Plan Problem List (1) Acute hypoxemic respiratory failure: Impression: 03/05: Clinical status is basically unchanged. She remains on 4 L via nasal cannula with a oxygen saturation this morning at 93%. She continues to have adventitious breath sounds on exam. She continues to have fatigue. I am somewhat suspicious that her hypoxic respiratory failure is not due to CHF but rather due to COPD. I have repeated a chest x-ray. I am waiting on the reading, but to my eye the imaging looks approximately equivalent. Thusly I have independently evaluated her chest x-ray and based treatment upon that. Her BNP has gone from the 600s to the 200s to 148 today. She is adequately diuresed as her Cr has increased. Long discussion with patient's daughter Amber and patient's daughter Shaila. Marcia is a nurse and was on the phone. They are confused about why I am treating her for COPD exacerbation as they did not think that she had COPD. They state the only reason she is on albuterol is after COVID infection that was 2 years ago. She does not use albuterol. We had a long discussion about the pathophysiology of CHF versus COPD and how although their mom is not improving clinically she is adequately diuresed from the standpoint of CHF. Per their request I will also do a CT of her chest this afternoon to further evaluate. I think this a reasonable request as she is not clinically improving and could certainly have a pneumonia as well, although no fevers, no elevated WBC. We will not use contrast on the CT due to her acute kidney injury. I am going to hold Lasix therapy due to her acute kidney injury. 03/04: She remains on oxygen at 2L NC which is not her baseline. At baseline, she manages her own medications, and is ambulatory with a walker at [facility] living. She is - 380 cc so far. PRN karson. I will order PT evaluation as I think she has had an acute decline in her function. (2) COPD (chronic obstructive pulmonary disease): Impression: At this time I am somewhat suspicious that COPD is the etiology of her hypoxia. She is on albuterol inhaler at home. I do not see any long-acting COPD medications on her medication profile. I am going to add scheduled nebulizers today in addition to Solu-Medrol. I will see how she responds to these treatments. Qualifiers: COPD type: unspecified COPD Qualified Code(s): J44.9 - Chronic obstructive pulmonary disease, unspecified (3) Acute exacerbation of CHF (congestive heart failure): Impression: elevated BNP and CXR highly supportive of new onset CHF vs CHF exacerbation. no signs of infection. no signs of ACS. Her troponin shows mild elevation without increase. I will not continue to trend. I have ordered BMP for the AM to monitor renal status and potassium. I have researched old records, I have found an echocardiogram from April 2015. Results are unremarkable at that time. I am awaiting completion of updated echocardiogram. 2 Selected Entries 03/03/24 16:06 03/03/24 22:21 03/04/24 06:00 Weight (kg) 92.986 kg 95 kg 94.5 kg 03/05/24 00:10 Weight (kg) 94.6 kg . Qualifiers: Heart failure type: unspecified Qualified Code(s): I50.9 - Heart failure, unspecified (4) Acute kidney injury: Impression: Her creatinine is rising from the time of admission. Her weight has not decreased significantly. Her urine output has not been as robust as I would expect. I will hold Lasix today and treat inflammation in her lungs. I will hold her lisinopril today. 03/03/24 03/04/24 03/05/24 16:29 04:59 05:04 Creatinine 1.0 1.2 1.6 H (5) HLD (hyperlipidemia): Impression: managed. contiue home statin therapy Qualifiers: Hyperlipidemia type: unspecified Qualified Code(s): E78.5 - Hyperlipidemia, unspecified (6) Hypertension: Impression: controlled. judiciously continue home atenolol. holding lisinopril. Selected Entries 03/04/24 16:07 03/04/24 17:33 03/04/24 20:28 Pulse Rate [Monitoring electrodes] 60 62 60 Blood Pressure [Right Brachial artery] 112/45 L 116/58 L 122/55 L 03/05/24 00:10 12/16/24 04:40 Pulse Rate [Monitoring electrodes] 60 60 Blood Pressure [Right Brachial artery] 135/57 H 110/47 L Qualifiers: Hypertension type: unspecified Qualified Code(s): I10 - Essential (primary) hypertension (7) Depression: Impression: managed. continue home med Sertraline Qualifiers: Depression Type: unspecified Qualified Code(s): F32.A - Depression, unspecified (8) Chronic pain: Impression: no acute exacerbation. continue home pain regimen Qualifiers: Chronic pain type: chronic pain syndrome Qualified Code(s): G89.4 - Chronic pain syndrome (9) Restless leg: Impression: managed. continue requip (10) Ambulatory dysfunction: Impression: As evidenced by her fall out of bed, she is significantly below her baseline level of function. She has been evaluated by PT who is recommending SNF for rehab. Seen by OT as well- SNF recommended. She is amenable to this recommendation. . (11) Bilateral hip pain: Impression: She has a long history of lumbar stenosis. She has hydrocodone prescribed but very rarely takes it. She is needing the hydrocodone for this pain. She states that her right hip pain is actually much much worse after this fall. And she is very worried. I have reviewed the x-ray films both the report and the images. I do not see any evidence of fracture. However, x-ray can miss hip fractures. I will obtain a CT of the pelvis to evaluate for occult hip fracture. I have spent 60 minutes in the care of this patient today. This includes time [id number], review and ordering of diagnostic imaging and laboratory studies.. Monitoring the patient's signs symptoms, evaluation of medication effectiveness and patient's response to treatment
[2024-03-05] MEDS: polyethylene glycoL 3350 17 GM PACKET PO SCH (08:29)
[2024-03-05] MEDS: CHOLECALCIFEROL 25 MCG TABLET PO SCH (08:29)
[2024-03-05] MEDS: methylPREDNISolone SUCCINATE 40 MG/ML VIAL IVP SCH (08:29)
[2024-03-05] MEDS: IPRATROPIUM/ALBUTEROL 3 ML NEB INH SCH (10:19)
[2024-03-05] MEDS: [UNRECOGNIZED DRUG - OTHER] PO SCH (10:20)
[2024-03-05] MEDS: ASCORBIC ACID PO SCH (10:20)
[2024-03-05] MEDS: COLLAGEN PO SCH (10:20)
[2024-03-05] MEDS: BIOTIN PO SCH (10:20)
--- NOTE | 2024-03-05 15:30 | OT Plan of Care ---
OT Inpatient POC Diagnosis DIAGNOSIS Diagnosis: acute respiratory failure Diagnosis: fall OOB Chief Complaint: fatigue and pain in low back and L hip Onset of Chief Complaint: [employer] on 03/03/24 Assessment and Goals ASSESSMENT Assessment: Pt is an 83 y/o female adm with respiratory failure 2/2 CPOD vs CHF exacerbation. Pt requiring NC O2 for Spo2 management. C/o L hip pain; x ray negative, CT pending. PA cleared for OT evaluation. Denied pain during session. Met supine in bed, A&Ox3 however lethargic. Performed supine to sit MIN A, sit to stand MIN A, and ambulation 5ft using 2WW. MOD A LB dressing donning B shoes and socks prior to mobility- MIN A gown change. Quick to fatigue with mobility and ADL's. Spo2 maintained on 4 L NC however pt with notable SOB. Educated on PLB and rest breaks prn. Overall presenting with decreased endurance, activity tolerance, and ADL status. Will benefit from cont OT services during acute stay. Rec d/c to SNF at this time. OT Inpatient Plan PLAN Treatment Frequency: 1x/day Duration: Until discharge -Discharge Recommendations Discharge Location: Snf Facility Transport Needs at Discharge: [email or web address]
--- NOTE | 2024-03-05 21:00 | CT Report ---
PROCEDURE: CT Chest WO INDICATIONS: pneumonia vs chf vs COPD TECHNIQUE: A CT scan of the chest was performed. Intravenous contrast media was not administered. Images were re corded and evaluated at appropriate window settings. Reformats: axial MIP of the chest, coronal and s agittal. For radiation dose reduction, the following was used: automated exposure control, adjustment of mA and/or kV according to patient size. COMPARISON: 03/05/2024, 06/09/2023 FINDINGS: Image quality: Suboptimal due to motion artifact. Chest wall and lower neck: No thyroid nodule which requires sonographic follow up. No axillary or sup raclavicular adenopathy by size. Left chest wall generator with intravenous leads. Lungs and pleura: No consolidation. No pleural effusions. No pneumothorax. No suspicious pulmonary n odules which require follow up. Debris within the dependent airways. Consolidation of the dependent left lower lobe. Patchy, nodular consolidation of the remaining lungs. Mediastinum: Heart size is enlarged. No pericardial effusion. No large vessel abnormality. No mediast inal adenopathy by size criteria. Large hiatal hernia. Bones: No aggressive osseous abnormality. Upper Abdomen: Unremarkable. IMPRESSION: Suspected aspiration in the left lower lobe, with consolidation and debris within the dependent airwa ys. Large hiatal hernia, placing this patient at risk for aspiration. Consider speech pathology refer ral if not already performed. Superimposed nodular consolidation throughout the remaining lungs. Findings probably represent atypic al infection, less likely a sequela of aspiration given distribution. Reviewed by: Talib Hanley MD on 03/05/2024 8:58 PM PST Approved by: Talib Hanley MD on 03/05/2024 8:58 PM PST Station ID: [id number]
--- NOTE | 2024-03-05 21:10 | XRAY Report ---
PROCEDURE: XR Chest 1V INDICATIONS: hypoxia TECHNIQUE: One view of the chest was acquired. COMPARISON: None FINDINGS: Left-sided dual-chamber pacemaker present. Atherosclerotic vascular calcification noted in the aortic arch. Heart size is minimally enlarged. Moderate vascular congestion. Minimal blunting the left cost ophrenic angle. Low lung volumes accentuate the pulmonary interstitium, and the lung apices are obscu red by the mandible IMPRESSION: Cardiomegaly and moderate vascular congestion Reviewed by: Roberto Thomas MD on 03/05/2024 8:09 PM AKST Approved by: Roberto Thomas MD on 03/05/2024 8:09 PM AKST Station ID: [id number]
--- NOTE | 2024-03-05 21:17 | CT Report ---
PROCEDURE: CT Abdomen/Pelvis WO INDICATIONS: R hip pain after fall, XR neg TECHNIQUE: A CT scan of the abdomen and pelvis was performed without the use of intravenous contrast. Images we re recorded and evaluated at appropriate window settings. Reformats: coronal and sagittal. For radiat ion dose reduction, the following was used: automated exposure control, adjustment of mA and/or kV ac cording to patient size. COMPARISON: Same day ultrasound, x-ray, hip x-ray 03/03/2024 FINDINGS: Image quality: Suboptimal due to motion artifact. Lower chest: Please see same day chest CT. Liver: No contour-deforming mass. Gallbladder: No radiopaque stones or wall thickening. Biliary tree: No intrahepatic or extrahepatic dilation, accounting for age. Spleen: No splenomegaly. Pancreas: No pancreatic ductal dilation. Adrenals: No adrenal nodule. Kidneys and ureters: No hydronephrosis. No contour-deforming mass. Stomach, bowel and peritoneum: No gastric or small bowel dilation. No abnormal wall thickening. No pa thologic free fluid. Lymph nodes: No central or retroperitoneal adenopathy. Vessels: No infrarenal aortic aneurysm. Reproductive organs: Unremarkable. Bladder: Bladder wall thickness is normal, accounting for underdistention. No calcified bladder stone s. Pelvic lymph nodes: No adenopathy by size criteria. Bones: No aggressive osseous abnormality. Degenerative changes of the spine. Decreased bone mineraliz ation. Other: No significant ventral or inguinal hernia. Soft tissue edema lateral to the greater trochanter of the right hip. IMPRESSION: Subcutaneous edema lateral to the greater trochanter of the right hip. There is no displaced fracture . However, there is moderate motion artifact and decreased bone mineralization, which may obscured an occult injury. If this patient is nonweightbearing, consider MRI to exclude an occult injury. Reviewed by: Talib Hanley MD on 03/05/2024 9:16 PM PST Approved by: Talib Hanley MD on 03/05/2024 9:16 PM PST Station ID: [id number]
[2024-03-05] MEDS: cefTRIAXone 1 GM in SODIUM CHLORIDE 0.9% MINIBAG 100 ML IV SCH (21:45)
[2024-03-05] MEDS: AZITHROMYCIN INJ 500 MG in SODIUM CHLORIDE 0.9% 250 ML IV SCH (22:19)
[2024-03-05] MEDS: SODIUM CHLORIDE FLUSH 0.9% 10 ML SYRINGE IVP PRN (22:20)
[2024-03-06 05:35] LABS: BASOPHILS % (AUTO) 0.5 %; EOSINOPHILS # (AUTO) 0.1 10^3/uL (0.0-0.7); EOSINOPHILS % (AUTO) 2.2 %; HCT - HEMATOCRIT 37.5 % (37.0-47.0); HGB - HEMOGLOBIN 11.8 g/dL (12.0-16.0); LYMPHOCYTES # (AUTO) 0.9 10^3/uL (1.5-3.5); LYMPHOCYTES % (AUTO) 15.2 %; MEAN CORPUSCULAR HEMOGLOBIN 27.7 pg (27.0-31.0); MEAN CORPUSCULAR HGB CONC 31.5 g/dL (32.0-36.0); MEAN PLATELET VOLUME 9.8 fL (7.9-10.8); MONOCYTES # (AUTO) 0.4 10^3/uL (0.0-1.0); MONOCYTES % (AUTO) 6.9 %; NEUTROPHILS # (AUTO) 4.4 10^3/uL (1.5-6.6); NEUTROPHILS % (AUTO) 74.9 %; PLT - PLATELET COUNT 213 10^3/uL (130-450); RED BLOOD COUNT 4.26 10^6/uL (4.20-5.40); RED CELL DISTRIBUTION WIDTH 15.1 % (12.0-15.0); WHITE BLOOD COUNT 5.9 x10^3/uL (4.8-10.8)
[2024-03-06 05:51] LABS: CALCIUM 9.4 mg/dL (8.5-10.3); CREATININE 1.1 mg/dL (0.6-1.3); POTASSIUM 3.9 mmol/L (3.5-4.5)
--- NOTE | 2024-03-06 07:18 | PROVIDER PROGRESS NOTE ---
Subjective Prog Note Date Prog Note Date: 03/06/24 Prog Note Time: 07:16 Subjective Pt reports feeling: Improved Subjective: She is awake and alert this morning she is sitting up in bed watching television. When I walk in the room she says she feels better. This is a very large change from previous encounters. When I mention going to group home she says she thinks maybe she does not need to. She is continuing to have a productive cough. Current Medications Current Medications Current Medications: Current Medications Generic Name Dose Route Start Last Admin Trade Name Freq PRN Reason Stop Dose Admin Acetaminophen 650 mg 03/03/24 21:44 03/04/24 00:31 Acetaminophen 325 Mg Tablet PO 650 mg Q4HR PRN Administration Pain 1 to 4, or Fever Hydrocodone Bitart/Acetaminophen 1 tab 03/03/24 22:00 03/04/24 09:05 Hydrocod/Acetam 5/325 Mg Tablet PO 1 tab TID PRN Administration Moderate Pain (Level 4-6) Albuterol/Ipratropium 3 ml 03/05/24 11:00 03/06/24 07:05 Ipratropium/Albuterol 3 Ml Neb INH 3 ml RTQID LUCIANA Administration Apixaban 5 mg 03/04/24 11:00 03/05/24 21:25 Apixaban 5 Mg Tablet PO 5 mg BID LUCIANA Administration Atenolol 25 mg 03/04/24 09:00 03/05/24 10:21 Atenolol 25 Mg Tablet PO Not Given DAILY LUCIANA Atorvastatin Calcium 40 mg 03/04/24 21:00 03/05/24 21:25 Atorvastatin 40 Mg Tablet PO 40 mg QPM LUCIANA Administration Cholecalciferol 25 mcg 03/05/24 09:00 03/05/24 08:29 Cholecalciferol 25 Mcg Tablet PO 25 mcg DAILY LUCIANA Administration Azithromycin 500 mg/ Sodium 250 mls @ 250 mls/hr 03/05/24 22:00 03/05/24 22:19 Chloride IV 03/07/24 22:59 250 mls/hr Q24H LUCIANA Administration Ampicillin Sodium/Sulbactam 100 mls @ 200 mls/hr 03/06/24 08:00 Sodium 1.5 gm/ Sodium Chloride IV Q6HR LUCIANA Methylprednisolone 40 mg 03/05/24 08:00 03/06/24 05:48 Methylprednisolone Succinate 40 Mg/Ml Vial IVP 40 mg TID LUCIANA Administration Multivitamins/Minerals 1 tab 03/04/24 09:00 03/05/24 08:08 Multivitamin W/Minerals Tablet PO 1 tab DAILY LUCIANA Administration Nystatin 1 applic 03/04/24 09:00 03/05/24 21:25 Nystatin Powder 15 Gm TOP 1 applic BID LUCIANA Administration Ondansetron HCl 4 mg 03/03/24 21:44 Ondansetron 4 Mg/2 Ml Vial IVP Q6HR PRN Nausea / Vomiting Polyethylene Glycol 17 gm 03/05/24 09:00 03/05/24 08:29 Polyethylene Glycol 3350 17 Gm Packet PO 17 gm DAILY LUCIANA Administration Pregabalin 150 mg 03/03/24 22:00 03/06/24 05:48 Pregabalin 25 Mg Capsule PO 150 mg TID LUCIANA Administration Ropinirole HCl 0.5 mg 03/04/24 21:00 03/05/24 21:25 Ropinirole 0.25 Mg Tablet PO 0.5 mg HS LUCIANA Administration Sertraline HCl 50 mg 03/04/24 09:00 03/05/24 08:07 Sertraline 50 Mg Tablet PO 50 mg DAILY LUCIANA Administration Sodium Chloride 10 ml 03/03/24 21:44 03/05/24 22:20 Sodium Chloride Flush 0.9% 10 Ml Syringe IVP 10 ml PRN PRN Administration NEEDED PER PROVIDER ORDERS Sodium Chloride 10 ml 03/04/24 01:00 03/05/24 23:59 Sodium Chloride Flush 0.9% 10 Ml Syringe IVP 10 ml 0100,0900,1700 LUCIANA Administration Objective Vital Signs/Intake & Output Reviewed Vital Signs: Yes Vital Signs: Vital Signs x48h Temp Pulse Pulse Resp BP Pulse Ox O2 Flow Rate 03/06/24 07:06 84 20 3 03/06/24 04:40 36.6 C 61 18 119/89 95 03/06/24 01:20 36.4 C L 60 24 112/54 L 94 4 Intake & Output: Intake & Output 03/03/24 03/04/24 03/05/24 03/06/24 23:59 23:59 23:59 23:59 Intake Total 120 / 120 800 / 800 1460 / 1460 550 / 550 Output Total 400 / 400 850 / 850 900 / 900 275 / 275 Balance -280 / -280 -50 / -50 560 / 560 275 / 275 Weight (kg) 95 kg 94.5 kg 94.6 kg 95.5 kg Objective General Appearance: positive No acute distress and Alert Eyes Bilateral: positive Normal inspection ENT: positive ENT inspection nml Neck: positive Nml inspection Respiratory: positive No respiratory distress, Wheezes (diffuse) and Rhonchi (diffuse) Cardiovascular: positive Regular rate & rhythm Abdomen: positive Non-tender Back: positive Nml inspection Skin: positive Color nml Extremities: positive No pedal edema Neurologic/Psychiatric: positive Oriented x3 Lab Results 03/06/24 05:12 03/06/24 05:12 Other Labs: Lab Results x24hrs 03/06/24 03/05/24 Range/Units 05:12 09:02 WBC 5.9 (4.8-10.8) x10^3/uL RBC 4.26 (4.20-5.40) 10^6/uL Hgb 11.8 L (12.0-16.0) g/dL Hct 37.5 (37.0-47.0) % MCV 88.0 (81.0-99.0) fL MCH 27.7 (27.0-31.0) pg MCHC 31.5 L (32.0-36.0) g/dL RDW 15.1 H (12.0-15.0) % Plt Count 213 (130-450) 10^3/uL MPV 9.8 (7.9-10.8) fL Neut # (Auto) 4.4 (1.5-6.6) 10^3/uL Lymph # (Auto) 0.9 L (1.5-3.5) 10^3/uL [place] # (Auto) 0.4 (0.0-1.0) 10^3/uL Eos # (Auto) 0.1 (0.0-0.7) 10^3/uL Baso # (Auto) 0.0 (0.0-0.1) 10^3/uL Absolute Nucleated RBC 0.00 x10^3/uL Nucleated RBC % 0.0 /100WBC Sodium 133 L (135-145) mmol/L Potassium 3.9 (3.5-4.5) mmol/L Chloride 96 L (101-111) mmol/L Carbon Dioxide 27 (21-32) mmol/L Anion Gap 10.0 (6-13) BUN 53 H (6-20) mg/dL Creatinine 1.1 (0.6-1.3) mg/dL Estimated GFR (MDRD) 48 L (>89) Glucose 153 H (74-104) mg/dL Calcium 9.4 (8.5-10.3) mg/dL B-Natriuretic Peptide 148 H (5-100) pg/mL Diagnostic Imaging Diagnostic Imaging Results: positive Final report reviewed Diagnostic Imaging Comments: CT pelvis: Subcutaneous edema lateral to the greater trochanter of the right hip. No fracture. CT chest suspected aspiration in the left lower lobe with consolidation and debris within dependent airways. Large hiatal hernia. Superimposed nodular consolidation throughout the remaining lungs possible atypical infection less likely sequela of aspiration. Assessment/Plan Problem List (1) Acute hypoxemic respiratory failure: Impression: 03/06:Acute hypoxic respiratory failure which has been difficult to ascertain clinically what is going on with this patient. CT of the chest yesterday made it obvious that this is an aspiration pneumonia and pneumonitis. Likely related to the hiatal hernia. We are treating her medically and even within 12 hours she is experiencing some symptomatic improvement. Later this AM her oxygen requirement is down to 2L. I am going to continue to hold her Lasix as I do not believe there is a large CHF component within this. I have discussed her clinical course with her daughter Shaila today. Marcia is a RN who is currently in [place]. 03/05: Clinical status is basically unchanged. She remains on 4 L via nasal cannula with a oxygen saturation this morning at 93%. She continues to have adventitious breath sounds on exam. She continues to have fatigue. I am somewhat suspicious that her hypoxic respiratory failure is not due to CHF but rather due to COPD. I have repeated a chest x-ray. I am waiting on the reading, but to my eye the imaging looks approximately equivalent. Thusly I have independently evaluated her chest x-ray and based treatment upon that. Her BNP has gone from the 600s to the 200s to 148 today. She is adequately diuresed as her Cr has increased. Long discussion with patient's daughter Amber and patient's daughter Shaila. Marcia is a nurse and was on the phone. They are confused about why I am treating her for COPD exacerbation as they did not think that she had COPD. They state the only reason she is on albuterol is after COVID infection that was 2 years ago. She does not use albuterol. We had a long discussion about the pathophysiology of CHF versus COPD and how although their mom is not improving clinically she is adequately diuresed from the standpoint of CHF. Per their request I will also do a CT of her chest this afternoon to further evaluate. I think this a reasonable request as she is not clinically improving and could certainly have a pneumonia as well, although no fevers, no elevated WBC. We will not use contrast on the CT due to her acute kidney injury. I am going to hold Lasix therapy due to her acute kidney injury. 03/04: She remains on oxygen at 2L [place] which is not her baseline. At baseline, she manages her own medications, and is ambulatory with a walker at [facility]. She is - 380 cc so far. PRN karson. I will order PT evaluation as I think she has had an acute decline in her function. (2) COPD (chronic obstructive pulmonary disease): Impression: There is definitely a reactive airway component to her disease process. Therefore I will continue with scheduled bronchodilators and Solu-Medrol. I will back the Solu-Medrol off to twice daily. Qualifiers: COPD type: unspecified COPD Qualified Code(s): J44.9 - Chronic obstructive pulmonary disease, unspecified (3) Acute exacerbation of CHF (congestive heart failure): Impression: Initial thoughts this hospitalization are: elevated BNP and CXR highly supportive of new onset CHF vs CHF exacerbation. no signs of infection. no signs of ACS. Her troponin shows mild elevation without increase. I will not continue to trend. I have ordered BMP for the AM to monitor renal status and potassium. I have researched old records, I have found an echocardiogram from April 2015. Results are unremarkable at that time. Updated echocardiogram shows an ejection fraction which is within normal limits. I am continuing to hold her diuretic therapy.. 2 Selected Entries 03/03/24 16:06 03/03/24 22:21 03/04/24 06:00 Weight (kg) 92.986 kg 95 kg 94.5 kg 03/05/24 00:10 Weight (kg) 94.6 kg . Qualifiers: Heart failure type: unspecified Qualified Code(s): I50.9 - Heart failure, unspecified (4) Aspiration pneumonia: Impression: Likely aspiration pneumonia. I have started the patient on Unasyn 1.5 g 4 times daily. Additionally am covering for atypicals with azithromycin. These results came in PM 03/05 and we are able to start antibiotic therapy last night. And she is showing improvement this morning. She is showing improvement in her symptoms As well as with decreasing oxygen requirements. This aspiration pneumonia is most likely related to the hiatal hernia seen on the CT of her chest. She is not an operative candidate. She is not interested in an operation. We will therefore treat her with proton pump inhibitor therapy.. Qualifiers: Aspiration pneumonia type: due to gastric secretions Laterality: left Lung location: lower lobe of lung Qualified Code(s): J69.0 - Pneumonitis due to inhalation of food and vomit (5) Acute kidney injury: Impression: She experienced acute kidney injury secondary to diuretic for potential CHF exacerbation. Her creatinine has quickly rebounded. Her acute kidney injury is resolved. I will resume her lisinopril.Laboratory Tests 03/04/24 03/05/24 03/06/24 04:59 05:04 05:12 Creatinine 1.2 1.6 H 1.1 (6) HLD (hyperlipidemia): Impression: managed. contiue home statin therapy Qualifiers: Hyperlipidemia type: unspecified Qualified Code(s): E78.5 - Hyperlipidemia, unspecified (7) Hypertension: Impression: controlled. continue home atenolol. holding lisinopril. Her renal status is better but her blood pressure does not look as if she needs lisinopril.Selected Entries 03/06/24 01:20 03/06/24 04:40 03/06/24 08:27 Blood Pressure [Right Brachial artery] 112/54 L 119/89 141/56 H 03/06/24 12:50 Blood Pressure [Right Brachial artery] 140/51 H Qualifiers: Hypertension type: unspecified Qualified Code(s): I10 - Essential (primary) hypertension (8) Depression: Impression: managed. continue home med Sertraline Qualifiers: Depression Type: unspecified Qualified Code(s): F32.A - Depression, unspecified (9) Chronic pain: Impression: no acute exacerbation. continue home pain regimen Qualifiers: Chronic pain type: chronic pain syndrome Qualified Code(s): G89.4 - Chronic pain syndrome (10) Restless leg: Impression: managed. continue requip (11) Ambulatory dysfunction: Impression: As evidenced by her fall out of bed, she is significantly below her baseline level of function. She has been evaluated by PT who is recommending SNF for rehab. Seen by OT as well- SNF recommended. She is amenable to this recommendation. I am with her this afternoon as she is getting up and using the walker to the bathroom. She is doing well with just standby assist. She may progress to the point that she does not need group home. . (12) Bilateral hip pain: Impression: She has a long history of lumbar stenosis. She has hydrocodone prescribed but very rarely takes it.. She has done better today. She is ambulatory with minimal amounts of pain. CT of the pelvis does show some inflammation around the greater trochanter of the left hip. This seems to be less and less of an issue. She has not received any hydrocodone today. (13) Hiatal hernia: Impression: This is a new diagnosis. She stated that several months ago she started to have some reflux symptoms which she treated with Tums. She was not aware that she had a hiatal hernia previously. She has no interest in surgical treatment of this hiatal hernia. She states she would like to be treated medically to the extent which is possible. I have therefore started her on proton pump inhibitor. have spent 60 minutes in the care of this patient today. This includes time [id number], review and ordering of diagnostic imaging and laboratory studies.. Monitoring the patient's signs symptoms, evaluation of medication effectiveness and patient's response to treatment
[2024-03-06] MEDS: AMPICILLIN/SULBACTAM 1.5 GM in SODIUM CHLORIDE 0.9% MINIBAG 100 ML IV SCH (08:12)
[2024-03-06] MEDS: PANTOPRAZOLE 40 MG VIAL IVP SCH (08:15)
[2024-03-06] MEDS: guaiFENesin 600 MG TABLET PO SCH (10:34)
[2024-03-06] MEDS: methylPREDNISolone SUCCINATE 40 MG/ML VIAL IVP SCH (20:37)
[2024-03-07] MEDS: BENZOCAINE/MENTHOL LOZENGE MM PRN (01:12)
[2024-03-07 05:32] LABS: BASOPHILS % (AUTO) 0.3 %; HCT - HEMATOCRIT 33.4 % (37.0-47.0); HGB - HEMOGLOBIN 10.8 g/dL (12.0-16.0); LYMPHOCYTES # (AUTO) 0.9 10^3/uL (1.5-3.5); LYMPHOCYTES % (AUTO) 12.3 %; MEAN CORPUSCULAR HEMOGLOBIN 27.8 pg (27.0-31.0); MEAN CORPUSCULAR HGB CONC 32.3 g/dL (32.0-36.0); MEAN CORPUSCULAR VOLUME 86.1 fL (81.0-99.0); MEAN PLATELET VOLUME 10.1 fL (7.9-10.8); MONOCYTES # (AUTO) 0.6 10^3/uL (0.0-1.0); MONOCYTES % (AUTO) 8.1 %; NEUTROPHILS # (AUTO) 5.7 10^3/uL (1.5-6.6); NEUTROPHILS % (AUTO) 78.3 %; PLT - PLATELET COUNT 232 10^3/uL (130-450); RED BLOOD COUNT 3.88 10^6/uL (4.20-5.40); RED CELL DISTRIBUTION WIDTH 14.7 % (12.0-15.0); WHITE BLOOD COUNT 7.3 x10^3/uL (4.8-10.8)
[2024-03-07 05:55] LABS: CALCIUM 8.7 mg/dL (8.5-10.3); CREATININE 0.9 mg/dL (0.6-1.3); POTASSIUM 4.1 mmol/L (3.5-4.5)
[2024-03-07] MEDS: PANTOPRAZOLE 40 MG TABLET PO SCH (06:06)
[2024-03-07] MEDS: DOCUSATE SODIUM 250 MG CAPSULE PO SCH (08:08)
[2024-03-07] MEDS: predniSONE 20 MG TABLET PO SCH (08:08)
[2024-03-07] MEDS: AMOX/CLAV 875 MG/125 MG TABLET PO SCH (08:08)
[2024-03-07] MEDS: AZITHROMYCIN 250 MG TABLET PO ONE (08:10)
[2024-03-07 08:40] VITALS: TEMP 97.5
[2024-03-07] MEDS: guaiFENesin 600 MG TABLET PO ONE (10:14)
[2024-03-07] MEDS: guaiFENesin 600 MG TABLET PO SCH (10:14)
--- NOTE | 2024-03-07 11:57 | Discharge Summary ---
"Discharge Summary Admit Date: 03/03/24 Discharge Date: 03/07/24 Discharging Provider: Pio Huerta NP Primary Care Provider: Philip Borrego Code Status: Do Not Attempt Resuscitation Discharge Facility Name: [facility] DIAGNOSES Admission Diagnoses: Acute CHF Acute hypoxic respiratory failure Hypertension Hyperlipidemia Status postplacement of cardiac pacemaker Discharge Diagnoses with Status of Each Condition: Acute hypoxemic respiratory failureresolved COPD exacerbationresolved Acute CHFresolved Aspiration pneumoniaactive Acute kidney injuryresolved HyperlipidemiaChronic Hypertensionchronic Status postplacement of cardiac pacemakerchronic Depressionchronic Chronic painchronic Restless legchronic Ambulatory dysfunctionchronic Bilateral hip painchronic Hiatal herniachronic HPI History of Present Illness: 83YOF c htn, hld, hx of type 2 heart block s/p pacemaker, chronic pain, and restless leg who presented to the ED from her assisted living facility after falling. Patient states she was baseline self prior to the fall. She was in her bed and was getting ready for bed when she suddenly became weak and slid off her bed. No head trauma. No LOC. She reports chills. No fever. She developed SOB and coughing after sliding off her bed. She states no frequent falls. She mentions heart block hx requiring pacemaker. Otherwise no hx of heart attack. She mentioned being on Lasix 3 years ago after COVID infection. She was stopped on Lasix 2/2 low potassium approx 3 yrs ago. She has not noticed swelling in extremities. No sore throat. No runny nose. No chest pain. No palpitation. Here in the ED, patient was noted for hypoxemia requiring O2 support. She was noted for signs of pulmonary edema on CXR. No BLE edema on exam. ED was concerned about CHF and gave patient Lasix and reached out to Hospital Medicine for assistance with further medical management. CONSULTS | PROCEDURES Procedures: EKG atrial paced Echocardiogram without reduced EF or valvular pathology HOSPITAL COURSE Hospital Course: Patient was admitted to the hospital for acute on chronic hypoxic respiratory failure, suspected due to CHF versus COPD versus pneumonia. CT chest was obtained which showed suspected aspiration in the left lower lobe with consolidation and debris. This is thought to be secondary to a large hiatal hernia. Antibiotic coverage was broadened to Unasyn and azithromycin. Today, she is on room air. She has a very productive cough on high-dose mucolytic's. She is tolerating p.o. intake, so I am discharging her home. PT initially recommended SNF, however patient/family refused SNF placement. She is being sent home with home health PT, OT, speech, social work, RN, bath aide. She will need follow-up with PCP and likely consult to a surgeon for hiatal hernia repair ALLERGIES Allergies Allergy/AdvReac Type Severity Reaction Status Date / Time nitrofurantoin (From Allergy Rash Verified 03/03/24 16:06 Macrobid) nitroglycerin AdvReac Unknown severe Verified 03/03/24 16:06 hypotension MEDICATIONS Ambulatory Orders Medication Instructions Recorded Confirmed aspirin 81 mg chewable tablet 81 mg PO DAILY 07/11/16 03/03/24 rosuvastatin 20 mg tablet (Crestor) 20 mg PO DAILY 06/05/21 03/03/24 ropinirole 0.5 mg tablet 0.5 mg PO HS 11/26/21 03/03/24 cyclobenzaprine 10 mg tablet 10 mg PO TID PRN muscle spasm 12/06/21 03/03/24 albuterol sulfate 90 mcg/actuation 1 - 2 puff inhalation Q4HR PRN 05/09/22 03/03/24 aerosol inhaler (Ventolin HFA) Shortness Of Air/Wheezing #1 ea cranberry extract 500 mg tablet 1 tab PO DAILY 07/05/22 03/03/24 fdimkbfaulfy-oltelixa-wknx 1 tab PO DAILY 07/05/22 03/03/24 fumarate 19 mg-folic acid 400 mcg tablet (Therapeutic-M) pregabalin 50 mg capsule 150 mg PO TID 07/05/22 03/03/24 albuterol sulfate 90 mcg/actuation 1 - 2 puff inhalation Q4HR PRN 06/09/23 03/03/24 aerosol inhaler (Ventolin HFA) Shortness Of Air/Wheezing #1 ea atenolol 25 mg tablet 1 tab PO DAILY 06/09/23 03/03/24 cholecalciferol (vitamin D3) 25 25 mcg PO DAILY 03/03/24 03/03/24 mcg (1,000 unit) capsule collagen,hydrolysate 500 mg-biotin 1 cap PO DAILY 03/03/24 03/03/24 800 mcg-ascorbic acid 50 mg capsule (Collagen 1500 Plus C) lisinopril 10 mg tablet 10 mg PO DAILY 03/03/24 03/03/24 sertraline 50 mg tablet 50 mg PO DAILY 03/03/24 03/03/24 tramadol 50 mg tablet 50 mg PO BID PRN pain 03/03/24 03/03/24 triamcinolone acetonide 0.1 % 1 applic topical DAILY PRN rash 03/03/24 03/03/24 topical cream apixaban 5 mg tablet (Eliquis) 5 mg PO BID 03/04/24 03/04/24 amoxicillin 875 mg-potassium 1 tab PO BID 4 days #8 tabs 03/07/24 clavulanate 125 mg tablet guaifenesin 600 mg tablet, 1,200 mg (2 x 600 mg) PO BID 10 03/07/24 extended release 12 hr (Mucinex) days #40 tabs pantoprazole 40 mg tablet,delayed 40 mg PO QDAC 30 days #30 tabs 03/07/24 release prednisone 20 mg tablet 40 mg (2 x 20 mg) PO DAILYWM 2 03/07/24 days #4 tabs PHYSICAL EXAM AT DISCHARGE General Appearance: positive No acute distress and Alert Eyes Bilateral: positive Normal inspection and PERRL ENT: positive ENT inspection nml Neck: positive Nml inspection Respiratory: positive Chest non-tender, Rhonchi and Other (Productive cough) Cardiovascular: positive Regular rate & rhythm Peripheral Pulses: positive 2+ Abdomen: positive Non-tender Rectal: positive Non-tender Back: positive Nml inspection Skin: positive Color nml Extremities: positive Non-tender Neurologic/Psychiatric: positive Oriented x3 LABS 03/07/24 05:06 03/07/24 05:06 DIAGNOSTIC IMAGING Diagnostic Imaging Results Comments: CT, echocardiogram as above SEPSIS Current Stage of Sepsis: Ruled out FOLLOW UP Follow Up: With PCP, will need referral to surgery for hiatal hernia TIME SPENT Time Spent in Discharge (Minutes): 35 Discharge Plan Discharge Patient Disposition: ASSISTED, Self Care Condition: Stable Medically Cleared Date:: 03/07/24 Prescriptions: New amoxicillin-pot clavulanate 875-125 mg Tablet 1 tab PO BID 4 Days Qty: 8 0RF pantoprazole 40 mg Tablet,Delayed Release (Dr/Ec) 40 mg PO QDAC 30 Days Qty: 30 0RF prednisone 20 mg Tablet 40 mg PO DAILYWM 2 Days Qty: 4 0RF guaifenesin [Mucinex] 600 mg Tablet Extended Release 12hr 1,200 mg PO BID 10 Days Qty: 40 0RF Continued aspirin 81 MG tablet,chewable 81 mg PO DAILY rosuvastatin [Crestor] 20 MG tablet 20 mg PO DAILY ropinirole 0.5 MG tablet 0.5 mg PO HS cyclobenzaprine 10 MG tablet 10 mg PO TID PRN (Reason: muscle spasm) albuterol sulfate [Ventolin HFA] 200 PUFFS/18 GM HFA aerosol inhaler 1 - 2 puff inhalation Q4HR PRN (Reason: Shortness Of Air/Wheezing) Qty: 1 0RF pregabalin 50 MG capsule 150 mg PO TID cranberry extract 500 MG tablet 1 tab PO DAILY Therapeutic-M 1 TAB tablet 1 tab PO DAILY atenolol 25 MG tablet 1 tab PO DAILY albuterol sulfate [Ventolin HFA] 200 PUFFS/18 GM HFA aerosol inhaler 1 - 2 puff inhalation Q4HR PRN (Reason: Shortness Of Air/Wheezing) Qty: 1 0RF cholecalciferol (vitamin D3) 25 mcg (1,000 unit) capsule 25 mcg PO DAILY Collagen 1500 Plus C 500 mg-800 mcg- 50 mg capsule 1 cap PO DAILY sertraline 50 mg tablet 50 mg PO DAILY tramadol 50 mg tablet 50 mg PO BID PRN (Reason: pain) triamcinolone acetonide 0.1 % cream 1 applic TOPICAL DAILY PRN (Reason: rash) lisinopril 10 MG tablet 10 mg PO DAILY Eliquis 5 mg tablet 5 mg PO BID Activity Restrictions: No Restrictions Diet: Regular Health Concerns: You are a 83-year-old female with history significant for hypertension, hyperlipidemia, type II heart block with pacemaker, chronic pain, restless leg syndrome. You presented to the hospital after a fall. You were noted to have a low oxygen level in the ER, which is why you were admitted to the hospital. It was found that you had an aspiration pneumonia/pneumonitis. Other problems we had to consider/rule out include heart failure exacerbation or COPD exacerbation. You were given IV Lasix, but this is stopped. You are placed on steroid burst, this has been de-escalated to oral prednisone for another couple days. I am sending you home on Augmentin, which covers aspiration pneumonia. You completed a course of azithromycin, which does have some anti-inflammatory properties. While you were admitted, you underwent echocardiogram which showed an ejection fraction of 60 to 65% and no significant valvular disease Care Plan Goals: I would like you to completely recover from the pneumonia and by finishing your antibiotic course. Follow-up with PCP will determine resolution of this. Assessment: Patient of assisted living facility. She was evaluated by PT/OT and found to require minimal assistance with ADLs and can ambulate with 2 wheeled walker. She is understanding of her medication regimen at discharge, and can self administer. She is to follow-up with primary care provider within 2 weeks. At risk for falls due to mobility issues, requiring 2 wheel walker Plan of Treatment: Augmentin 875 mg By mouth twice daily until the bottle is empty Prednisone 40 mg by mouth daily until the bottle is empty. Please ambulate is much as possible as directed by physical therapy Please exercise caution with eating so that you do not aspirate on your food Please call and schedule a follow-up appointment with your primary care provider within the next 2 weeks If you begin to have fever, chills, worsening shortness of breath please seek medical attention Print Language: Guatemalan Patient Instructions: Aspiration Dysphagia Stand Alone Forms: PCP List Follow-up Care: ABBIE BORREGO MD [Primary Care Provider] -"
[2024-03-07 18:14] VITALS: BP 142/76; O2SAT 98
== END 2024-03-07 18:05 | disposition home or self-care (01) | DRG 189 ==
LOC: ED 16:00 → MS2 21:49
PROVIDERS: ADMIT Internal Medicine; ATTEND Internal Medicine
DX: I48.91 Unspecified atrial fibrillation; E87.70 Fluid overload, unspecified; K44.9 Diaphragmatic hernia without obstruction or gangrene; F32.9 Major depressive disorder, single episode, unspecified; Z91.81 History of falling; M48.061 Spinal stenosis, lumbar region without neurogenic claudication; J96.21 Acute and chronic respiratory failure with hypoxia; Z86.16 Personal history of COVID-19; N17.9 Acute kidney failure, unspecified; I50.9 Heart failure, unspecified; I11.0 Hypertensive heart disease with heart failure; M54.9 Dorsalgia, unspecified; R53.1 Weakness; Z79.01 Long term (current) use of anticoagulants; G25.81 Restless legs syndrome; Z79.82 Long term (current) use of aspirin; R09.02 Hypoxemia; G89.4 Chronic pain syndrome; J69.0 Pneumonitis due to inhalation of food and vomit; J44.1 Chronic obstructive pulmonary disease with (acute) exacerbation; E11.9 Type 2 diabetes mellitus without complications; M25.551 Pain in right hip; Z95.0 Presence of cardiac pacemaker; M25.552 Pain in left hip; E78.5 Hyperlipidemia, unspecified; Z87.891 Personal history of nicotine dependence

== ENCOUNTER 2024-05-06 06:30 | Inpatient (IN) ==
[2024-05-06] MEDS ORDERED: IPRATROPIUM/ALBUTEROL 3 ML NEB INH ONE (06:36)
[2024-05-06] MEDS: IPRATROPIUM/ALBUTEROL 3 ML NEB INH STA ×2 (06:46→07:28)
--- NOTE | 2024-05-06 06:56 | ED Physician Documentation ---
PD HPI DYSPNEA Stated complaint Stated Complaint: DIFFICULTY BREATHING/FALL Chief complaint Chief Complaint: Resp History obtained from History obtained from: Patient and EMS History of Present Illness Timing - onset: How many days ago (1-2) Timing - details: Abrupt onset (The patient is unable to give much of a detailed history. Her daughter arrived to the ER states her mom had been having some mil d cough and congestion for the last day or 2 that the daughter had prior to that. No history of CHF per se but does have a pacemaker. The patient had SOA since overnight) and Still present Meds/Allgy Home Medications Ambulatory Orders Medication Instructions Recorded Confirmed rosuvastatin 20 mg tablet (Crestor) 20 mg PO DAILY 06/05/21 05/06/24 ropinirole 0.5 mg tablet 0.5 mg PO HS 11/26/21 05/06/24 cyclobenzaprine 10 mg tablet 10 mg PO TID PRN muscle spasm 12/06/21 05/06/24 cranberry extract 500 mg tablet 1 tab PO DAILY 07/05/22 05/06/24 ylfekmibliga-karbvqcm-uwaf 1 tab PO DAILY 07/05/22 05/06/24 fumarate 19 mg-folic acid 400 mcg tablet (Therapeutic-M) pregabalin 50 mg capsule 150 mg PO BID 07/05/22 05/06/24 atenolol 25 mg tablet 1 tab PO DAILY 06/09/23 05/06/24 cholecalciferol (vitamin D3) 25 25 mcg PO DAILY 03/03/24 05/06/24 mcg (1,000 unit) capsule collagen,hydrolysate 500 mg-biotin 1 cap PO DAILY 03/03/24 05/06/24 800 mcg-ascorbic acid 50 mg capsule (Collagen 1500 Plus C) lisinopril 10 mg tablet 10 mg PO DAILY 03/03/24 05/06/24 sertraline 50 mg tablet 100 mg PO DAILY 03/03/24 05/06/24 tramadol 50 mg tablet 50 mg PO BID PRN pain 03/03/24 05/06/24 apixaban 5 mg tablet (Eliquis) 5 mg PO BID 03/04/24 05/06/24 pantoprazole 40 mg tablet,delayed 40 mg PO QDAC 30 days #30 tabs 03/07/24 05/06/24 release furosemide 20 mg tablet 20 mg PO DAILY 05/06/24 05/06/24 potassium chloride 10 mEq 10 meq PO DAILY 05/06/24 05/06/24 tablet,extended release(part/cryst) Allergies Allergies Allergy/AdvReac Type Severity Reaction Status Date / Time nitrofurantoin (From Allergy Rash Verified 05/06/24 06:41 Macrobid) nitroglycerin AdvReac Unknown severe Verified 05/06/24 06:41 hypotension PFSH Medical History Medical History Restless leg Chronic pain Hypertension Bilateral hip pain Pulmonary edema Depression HLD (hyperlipidemia) Social History Social History Smoking Status: Former smoker If you are a former smoker, when did you quit? (Date/Year): 30 years Number of Years Smoked: 30 How many cigarettes a day do you smoke? (20 cigarettes=1 Pk): 30 Second hand tobacco smoke exposure: No Do you dip or chew tobacco?: No Do you vape?: No Patient requests smoking cessation consult: No Initiate information on smoking cessation: No Living arrangement: At home Relationship: Child Level: Assisted Home Mobility Equipment: Wheeled walker Do you feel safe in your home environment?: Yes Suffered physical, verbal, emotional, or financial abuse?: No History of Abuse: No POLST Patient has POLST: No Results Vitals Vitals: Vital Signs - 24 hr 05/06/24 06:33 05/06/24 06:44 05/06/24 06:46 Temperature 37.4 C Temperature Source Temporal Artery Scan Pulse Rate 68 77 Respiratory Rate 28 H 26 H Blood Pressure 150/84 H O2 Saturation 69 L Oxygen Delivery Method Non-Rebreather O2 Source If not protocol: Oxygen Flow, liters/minute 15 Fraction of Inspired Oxygen (FIO2) Pain Intensity 0 05/06/24 07:06 05/06/24 07:18 05/06/24 07:21 Temperature Temperature Source Pulse Rate 79 80 Respiratory Rate 28 H Blood Pressure 214/93 H O2 Saturation Oxygen Delivery Method O2 Source Non-rebreather mask If not protocol: Oxygen Flow, liters/minute 15 10 Fraction of Inspired Oxygen (FIO2) 100 Pain Intensity 0 05/06/24 07:43 05/06/24 07:49 05/06/24 08:20 Temperature Temperature Source Pulse Rate 83 67 Respiratory Rate 30 H 18 Blood Pressure 175/101 H 103/66 O2 Saturation 86 L 91 L Oxygen Delivery Method O2 Source BIPAP BIPAP If not protocol: Oxygen Flow, liters/minute Fraction of Inspired Oxygen (FIO2) Pain Intensity 0 05/06/24 08:30 05/06/24 08:48 Temperature Temperature Source Pulse Rate 60 Respiratory Rate Blood Pressure 97/58 L O2 Saturation Oxygen Delivery Method O2 Source If not protocol: Oxygen Flow, liters/minute Fraction of Inspired Oxygen (FIO2) Pain Intensity 0 Oxygen O2 Source [With Activity] Nasal cannula O2 Source [Without Activity] Room air O2 Source BIPAP Labs Labs: Laboratory Tests 05/06/24 05/06/24 06:50 06:55 WBC 10.5 RBC 4.93 Hgb 14.0 Hct 44.9 MCV 91.1 MCH 28.4 MCHC 31.2 L RDW 14.6 Plt Count 202 MPV 9.9 Neut # (Auto) 6.2 Lymph # (Auto) 3.0 Marshall # (Auto) 1.1 H Eos # (Auto) 0.1 Baso # (Auto) 0.1 Absolute Nucleated RBC 0.00 Nucleated RBC % 0.0 D-Dimer 502.3 H Sodium 132 L Potassium 3.9 Chloride 97 L Carbon Dioxide 24 Anion Gap 11.0 BUN 18 Creatinine 1.2 Estimated GFR (MDRD) 43 L Glucose 177 H Lactic Acid 3.0 H* Calcium 9.2 Magnesium 1.9 Total Bilirubin 0.6 AST 47 H ALT 45 Alkaline Phosphatase 64 Troponin I High Sens 26.1 H* B-Natriuretic Peptide 1256 H Total Protein 7.3 Albumin 4.2 Globulin 3.1 Albumin/Globulin Ratio 1.4 Lipase 18 Nasal Adenovirus (PCR) NOT DETECTED Nasal B. parapertussis DNA (PCR) NOT DETECTED Nasal Coronavir 229E PCR NOT DETECTED Nasal Coronavir HKU1 PCR NOT DETECTED Nasal Coronavir NL63 PCR NOT DETECTED Nasal Coronavir OC43 PCR NOT DETECTED Nasal Enterovir/Rhinovir PCR NOT DETECTED Nasal Influ A H1 2009 PCR DETECTED A Nasal Influenza B PCR NOT DETECTED Nasal Parainfluen 1 PCR NOT DETECTED Nasal Parainfluen 2 PCR NOT DETECTED Nasal Parainfluen 3 PCR NOT DETECTED Nasal Parainfluen 4 PCR NOT DETECTED Nasal RSV (PCR) NOT DETECTED Nasal B.pertussis DNA PCR NOT DETECTED Nasal C.pneumoniae (PCR) NOT DETECTED Billy Human Metapneumo PCR NOT DETECTED Nasal M.pneumoniae (PCR) NOT DETECTED Nasal SARS-CoV-2 (PCR) NOT DETECTED PD Medical Decision Making ED course Complexity details: reviewed results, considered differential, d/w patient and d/w public relations consultant ED course: The patient with some upper respiratory symptoms for the last day or 2 per her daughter. She has had some history of reactive airway disease but does not typically use regular inhalers. She is not on diuretics. History of hypertension and has a pacemaker. Evaluation of some dyspnea recently had a echocardiogram in February 2024 showing a 60% ejection fraction with no valvular disorders and no cardiomegaly. The patient does not have any edema. She sounds wheezy and not crackly. Chest x-ray shows apparent diffuse interstitial and vascular changes consistent with CHF. Her BNP is elevated. Troponin is not. At this point the respiratory PCR panel is not resulted but it sounds likely that she has some viral pneumonitis and may have had blood pressure induced CHF without fluid overload. As such we gave her some morphine and nebulizer treatments and metoprolol and her blood pressure did come down to approximately 140 now systolic. She is on BiPAP and her breathing has improved and her oxygenation is now just into the 90s sats. She is given IV antibiotics for potential pneumonia. I did not give any diuretics as I do not feel she is fluid overloaded but possibly mall distributed. Discharge Plan Discharge Patient Disposition: [facility] DC/Xfer Condition: Fair Clinical Impression: Acute respiratory failure, Influenza A, Viral pneumonitis, Hypertensive CHF Interventions: ED Admission Assessment Last Done: 05/06/24 15:42 ED Discharge Assessment Last Done: 05/06/24 09:45
[2024-05-06 07:09] LABS: BASOPHILS # (AUTO) 0.1 10^3/uL (0.0-0.1); BASOPHILS % (AUTO) 0.6 %; EOSINOPHILS # (AUTO) 0.1 10^3/uL (0.0-0.7); EOSINOPHILS % (AUTO) 0.7 %; HCT - HEMATOCRIT 44.9 % (37.0-47.0); LYMPHOCYTES % (AUTO) 28.4 %; MEAN CORPUSCULAR HEMOGLOBIN 28.4 pg (27.0-31.0); MEAN CORPUSCULAR HGB CONC 31.2 g/dL (32.0-36.0); MEAN CORPUSCULAR VOLUME 91.1 fL (81.0-99.0); MEAN PLATELET VOLUME 9.9 fL (7.9-10.8); MONOCYTES # (AUTO) 1.1 10^3/uL (0.0-1.0); MONOCYTES % (AUTO) 10.8 %; NEUTROPHILS # (AUTO) 6.2 10^3/uL (1.5-6.6); PLT - PLATELET COUNT 202 10^3/uL (130-450); RED BLOOD COUNT 4.93 10^6/uL (4.20-5.40); RED CELL DISTRIBUTION WIDTH 14.6 % (12.0-15.0); WHITE BLOOD COUNT 10.5 x10^3/uL (4.8-10.8)
[2024-05-06] MEDS: MORPHINE 2 MG/ML CARPUJECT IVP STA ×2 (07:21→08:48)
[2024-05-06] MEDS: CHERRY SYRUP 10 ML UDC PO ONE (07:23)
[2024-05-06] MEDS: DEXAMETHASONE 10 MG/ML VIAL IVP STA ×2 (07:25→07:28)
[2024-05-06] MEDS: SODIUM CHLORIDE 0.9% 1,000 ML IV STA ×3 (07:26→09:31)
--- NOTE | 2024-05-06 07:31 | XRAY Report ---
PROCEDURE: XR Chest 1V INDICATIONS: chest pain TECHNIQUE: One view of the chest was acquired. COMPARISON: 03/05/2024. FINDINGS: Surgical changes and devices: Left cardiac pacemaker device. Lungs and pleura: Moderate diffuse interstitial prominence and loss of vascular distinctness. Perihi lar airway thickening. Central basilar congestion. Lung bases are not well visualized as they are not completely imaged on this examination. There is suggestion of a left pleural effusion. No dense cons olidation. No pneumothorax. Mediastinum: Mediastinal contours appear normal. Heart size is prominent. Bones and chest wall: No suspicious bony lesions. Overlying soft tissues appear unremarkable. IMPRESSION: Mild cardiomegaly with findings consistent with pulmonary edema/CHF. Limited evaluation of the lung b ases secondary to exclusion off the [id number]-coxi. Reviewed by: Dennis Marino MD on 05/06/2024 7:30 AM PST Approved by: Dennis Marino MD on 05/06/2024 7:30 AM [facility] Station ID: [id number]
[2024-05-06 07:35] LABS: ALBUMIN 4.2 g/dL (3.2-5.5); ALBUMIN/GLOBULIN RATIO 1.4 (1.0-2.2); BILIRUBIN,TOTAL 0.6 mg/dL (0.2-1.0); CALCIUM 9.2 mg/dL (8.5-10.3); CREATININE 1.2 mg/dL (0.6-1.3); POTASSIUM 3.9 mmol/L (3.5-4.5); TOTAL PROTEIN 7.3 g/dL (6.4-8.9)
[2024-05-06] MEDS: AZITHROMYCIN INJ 500 MG in SODIUM CHLORIDE 0.9% 250 ML IV STA (07:35)
[2024-05-06] MEDS: cefTRIAXone 1 GM VIAL IVP STA (07:43)
[2024-05-06 08:20] LABS: B. PARAPERTUSSIS- RESP PCR PAN NOT DETECTED; B. PERTUSSIS- RESP PCR PANEL NOT DETECTED; C. PNEUMONIAE- RESP PCR PANEL NOT DETECTED; CORONAVIRUS 229E-RESP PCR NOT DETECTED; CORONAVIRUS HKU1-RESP PCR NOT DETECTED; CORONAVIRUS NL63-RESP PCR NOT DETECTED; CORONAVIRUS OC43-RESP PCR NOT DETECTED; HUMAN METAPNEUMOVIRUS NOT DETECTED; INFLUENZA A H1 2009- RESP PCR DETECTED; INFLUENZA B - RESP PCR PANEL NOT DETECTED; M. PNEUMONIAE- RESP PCR PANEL NOT DETECTED; PARAINFLUENZA VIRUS 1 NOT DETECTED; PARAINFLUENZA VIRUS 2 NOT DETECTED; PARAINFLUENZA VIRUS 4 NOT DETECTED; RHINOVIRUS/ENTEROVIRUS NOT DETECTED; RSV- RESP PCR PANEL NOT DETECTED; SARS-CoV-2 -RESP PCR PANEL NOT DETECTED
[2024-05-06] MEDS: METOPROLOL 5 MG/5 ML VIAL IVP STA (08:30)
[2024-05-06] MEDS: SODIUM CHLORIDE 0.9% 500 ML IV STA (08:52)
[2024-05-06] MEDS ORDERED: NOREPINEPHRINE/0.9 % NS 8 MG/250 ML BAG IV SCH (10:00)
[2024-05-06] MEDS: NOREPINEPHRINE/0.9 % NS 8 MG/250 ML BAG IV SCH (10:06)
[2024-05-06 11:10] LABS: ABG BASE EXCESS -3.4 mmol/L (-2.0-3.0); ABG PCO2 43 mmHg (34-45); ABG PH 7.33 (7.35-7.45); ABG PO2 96 mmHg (83-108); ABG TCO2 24.1 mmol/L (21.0-29.0)
[2024-05-06 11:11] LABS: ALLEN TEST POSITIVE
[2024-05-06 11:12] LABS: ABG OXYGEN SATURATION 97 % (95-98)
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
[2024-05-06] MEDS: ALBUTEROL NEB 2.5 MG/3 ML INH STA (12:05)
[2024-05-06] MEDS: MULTIVITAMIN W/MINERALS TABLET PO SCH (13:24)
[2024-05-06] MEDS: ASPIRIN CHEW 81 MG TABLET PO SCH (13:24)
[2024-05-06] MEDS: OSELTAMIVIR 75 MG CAPSULE PO SCH (13:24)
[2024-05-06] MEDS: APIXABAN 5 MG TABLET PO SCH (13:24)
[2024-05-06] MEDS: SODIUM CHLORIDE FLUSH 0.9% 10 ML SYRINGE IVP SCH (13:25)
[2024-05-06] MEDS: methylPREDNISolone SUCCINATE 40 MG/ML VIAL IVP SCH (13:25)
[2024-05-06] MEDS: SERTRALINE 50 MG TABLET PO SCH (13:26)
[2024-05-06] MEDS: atenoloL 25 MG TABLET PO SCH (13:39)
[2024-05-06] MEDS: IPRATROPIUM/ALBUTEROL 3 ML NEB INH SCH (15:10)
[2024-05-06 15:12] LABS: CALCIUM, IONIZED 1.14 mmol/L (1.09-1.30)
[2024-05-06 15:28] LABS: CALCIUM 8.3 mg/dL (8.5-10.3); MAGNESIUM 1.7 mg/dL (1.7-2.3); PHOSPHORUS 4.5 mg/dL (2.5-5.0); POTASSIUM 4.3 mmol/L (3.5-4.5)
[2024-05-06] MEDS: MAGNESIUM OXIDE 400 MG TABLET PO SCH (17:54)
[2024-05-06] MEDS: ACETAMINOPHEN 325 MG TABLET PO PRN (19:47)
[2024-05-06] MEDS: OSELTAMIVIR 30 MG CAPSULE PO SCH (21:21)
[2024-05-06] MEDS: NYSTATIN POWDER 15 GM TOP SCH (21:21)
[2024-05-06] MEDS: rOPINIRole 0.25 MG TABLET PO SCH (21:22)
[2024-05-06] MEDS: ATORVASTATIN 40 MG TABLET PO SCH (21:22)
[2024-05-06] MEDS: SODIUM CHLORIDE FLUSH 0.9% 10 ML SYRINGE IVP PRN (21:23)
[2024-05-07 05:17] LABS: CALCIUM 8.8 mg/dL (8.5-10.3); MAGNESIUM 2.1 mg/dL (1.7-2.3); PHOSPHORUS 3.6 mg/dL (2.5-5.0); POTASSIUM 4.3 mmol/L (3.5-4.5)
[2024-05-07] MEDS: PANTOPRAZOLE 40 MG TABLET PO SCH (06:21)
[2024-05-07 07:23] LABS: HCT - HEMATOCRIT 36.3 % (37.0-47.0); HGB - HEMOGLOBIN 11.4 g/dL (12.0-16.0); MEAN CORPUSCULAR HEMOGLOBIN 28.6 pg (27.0-31.0); MEAN CORPUSCULAR HGB CONC 31.4 g/dL (32.0-36.0); MEAN CORPUSCULAR VOLUME 91.2 fL (81.0-99.0); MEAN PLATELET VOLUME 10.2 fL (7.9-10.8); RED BLOOD COUNT 3.98 10^6/uL (4.20-5.40); WHITE BLOOD COUNT 7.8 x10^3/uL (4.8-10.8)
[2024-05-07 07:33] LABS: CALCIUM 8.8 mg/dL (8.5-10.3); CREATININE 0.9 mg/dL (0.6-1.3); POTASSIUM 4.3 mmol/L (3.5-4.5)
[2024-05-07 07:42] LABS: TROPONIN I HIGH SENSITIVITY 142.5 ng/L (2.3-14.8)
[2024-05-07] MEDS: AZITHROMYCIN INJ 500 MG in SODIUM CHLORIDE 0.9% 250 ML IV SCH (08:18)
[2024-05-07] MEDS: cefTRIAXone 1 GM VIAL IVP SCH (08:18)
[2024-05-07] MEDS: CHOLECALCIFEROL 25 MCG TABLET PO SCH (10:26)
[2024-05-07] MEDS: predniSONE 20 MG TABLET PO SCH (10:26)
--- NOTE | 2024-05-07 11:12 | PROVIDER PROGRESS NOTE ---
Subjective Prog Note Date Prog Note Date: 05/07/24 Subjective Pt reports feeling: Improved Subjective: Chief Complaint: Progressive flu-like symptoms including progressive cough and congestions for 3 days. Mrs. Madison is a 83 year old women admitted to the ICU for evaluation and treatment of acute respiratory failure w/ hypoxia, COPD exacerbation due to confirmed positive Influenza A w/ s/s for 3 days. She has a significant hx of COPD, not on home O2, HF w/ recovered EF, and atrial pacemaker. She lives at an assisted living facility and was found in her residence with increased WOB. Pt was transported via EMS, where her initial O2 sat was in low 70% on RA. In the ED she was hypertensive and was given IV morphine and metoprolol, subsequently she became hypotensive requiring vasopressors. She had elevated lactate 3.0 and troponin 290, possibly due to demand ischemia. EKG paced atrial rhythm w/ no STEMI. Overnight Events/Subjective: 24 Hour Events: Admitted to the ICU, respiratory status improving on BiPAP, transitioned to NC 4-5lpm. Troponin trending down, ECHO showed normal function and size, EF 60-65%. Hypotension improved and norepi stopped. Hospital Course by Date 05/06 - ED course: Hypoxic upon arrival O2 sat 69% on RA, placed on BiPAP -> 90%. Initially hypertensive BP 214/98. Was given IV morphine, metropolol, and steroids. Became hypotensive BP 85/56 placed on Norepinephrine. Possible morphine OD. Lactic acid elv 3.0. CXR shows hyperinflation w/o consolidation, mild cardiomegoly w/ pulm edema/ CHF. Influenza A positive PCR. Started on Steroids, duo-nebs, tamiflu, abx. Troponin elev secondary to demand ischemia. Atrial paced, EKG-no STEMI. ECHO L/R ventrical nml function EF 60-65%. 05/07 - Improving. Hypotension improving, Norepi stopped. Resp status improving. Off BiPAP->NC 4-5lpm. Antibiotics Ceftriaxone 1g IV qDaily Azithromycin 500,g IV qDaily Lines PIVs Critical Care Checklist: F: Gen Diet A: PAD Analgesia protocol on, analgesia with APAP PRN S: PAD Sedation protocol -NA T: DVT Protocol Active: Yes, H: Aspiration Protocol Active: Yes, (HOB>30) U: Stress Ulcer Protocol Active: Yes, Protonix 40mg PO G: Glycemic control to goal glucose 140-180 Current Medications Current Medications Current Medications: Current Medications Generic Name Dose Route Start Last Admin Trade Name Kristen PRN Reason Stop Dose Admin Acetaminophen 650 mg 05/06/24 09:25 05/06/24 19:47 Acetaminophen 325 Mg Tablet PO 650 mg Q4HR PRN Administration Pain 1 to 4, or Fever Albuterol/Ipratropium 3 ml 05/06/24 15:00 05/07/24 13:40 Ipratropium/Albuterol 3 Ml Neb INH 3 ml RTQID LUCIANA Administration Apixaban 5 mg 05/06/24 09:25 05/07/24 08:17 Apixaban 5 Mg Tablet PO 5 mg BID LUCIANA Administration Aspirin 81 mg 05/06/24 09:25 05/07/24 08:17 Aspirin Chew 81 Mg Tablet PO 81 mg DAILY LUCIANA Administration Atorvastatin Calcium 40 mg 05/06/24 21:00 05/06/24 21:22 Atorvastatin 40 Mg Tablet PO 40 mg QPM LUCIANA Administration Ceftriaxone Sodium 1 gm 05/07/24 09:00 05/07/24 08:18 Ceftriaxone 1 Gm Vial IVP 1 gm DAILY LUCIANA Administration Cholecalciferol 25 mcg 05/07/24 10:00 05/07/24 10:26 Cholecalciferol 25 Mcg Tablet PO 25 mcg DAILY LUCIANA Administration Norepinephrine/Sodium Chloride 8 mg in 250 mls @ 15 mls/hr 05/06/24 10:00 05/07/24 03:15 Levophed 8 Mg/250-0.9% Nacl IV Not Given .[id number] LUCIANA Protocol 8 MCG/MIN Azithromycin 500 mg/ Sodium 250 mls @ 250 mls/hr 05/07/24 09:00 05/07/24 09:31 Chloride IV Infused DAILY LUCIANA Infusion Multivitamins/Minerals 1 tab 05/06/24 09:25 05/07/24 08:17 Multivitamin W/Minerals Tablet PO 1 tab DAILY LUCIANA Administration Nystatin 1 applic 05/06/24 21:00 05/07/24 08:18 Nystatin Powder 15 Gm TOP 1 applic BID LUCIANA Administration Oseltamivir Phosphate 30 mg 05/06/24 21:00 05/07/24 08:17 Oseltamivir 30 Mg Capsule PO 05/10/24 21:01 30 mg BID LUCIANA Administration Pantoprazole Sodium 40 mg 05/07/24 07:00 05/07/24 06:21 Pantoprazole 40 Mg Tablet PO 40 mg QDAC LUCIANA Administration Prednisone 40 mg 05/07/24 11:00 05/07/24 10:26 Prednisone 20 Mg Tablet PO 40 mg DAILYWM LUCIANA Administration Ropinirole HCl 0.5 mg 05/06/24 21:00 05/06/24 21:22 Ropinirole 0.25 Mg Tablet PO Not Given HS ULCIANA Sertraline HCl 50 mg 05/06/24 09:25 05/07/24 08:17 Sertraline 50 Mg Tablet PO 50 mg DAILY LUCIANA Administration Sodium Chloride 10 ml 05/06/24 09:25 05/07/24 08:18 Sodium Chloride Flush 0.9% 10 Ml Syringe IVP 10 ml 0100,0900,1700 LUCIANA Administration Sodium Chloride 10 ml 05/06/24 09:25 05/07/24 06:22 Sodium Chloride Flush 0.9% 10 Ml Syringe IVP 10 ml PRN PRN Administration NEEDED PER PROVIDER ORDERS Objective Vital Signs/Intake & Output Vital Signs: Vital Signs Temp Pulse Resp BP Pulse Ox O2 Flow Rate 05/07/24 15:00 5 05/07/24 15:00 89 22 154/60 H 92 5 05/07/24 14:00 93 21 119/55 L 92 5 05/07/24 13:00 5 05/07/24 13:00 87 21 133/42 H 93 5 05/07/24 12:00 97.9 F 85 22 106/61 91 L 5 Intake & Output: Intake & Output 05/04/24 05/05/24 05/06/24 05/07/24 23:59 23:59 23:59 23:59 Intake Total 2790 / 2790 800 / 800 Output Total 1832 / 1832 461 / 461 Balance 958 / 958 339 / 339 Weight (kg) 97.5 kg 96 kg Objective General Appearance: positive No acute distress and Alert Eyes Bilateral: positive Normal inspection, PERRL and EOMI ENT: positive ENT inspection nml, Pharynx nml and No signs of dehydration Neck: positive Nml inspection, Thyroid nml and No JVD Respiratory: positive Chest non-tender and Other (LS diminished in lowers, otherwise CTAB) Cardiovascular: positive Regular rate & rhythm and Other (Atrial pacemaker) Peripheral Pulses: 1+: Radial (R), 1+: Radial (L), 1+: Popliteal (R), 1+: Popliteal (L), 1+: Posterior tibialis (R) and 1+: Posterior tibialis (L) Abdomen: positive Non-tender, Nml bowel sounds and No distention Rectal: positive Other (Deferred ) Back: positive Nml inspection Skin: positive Color nml, Warm and Dry Extremities: positive Non-tender, Full ROM, Nml appearance and No pedal edema Neurologic/Psychiatric: positive Oriented x3, CN's nml (2-12), Motor nml and Sensation nml Lab Results 05/07/24 04:12 05/07/24 04:12 Other Labs: Lab Results x24hrs 05/07/24 05/07/24 05/07/24 Range/Units 04:12 04:12 04:12 WBC 7.8 (4.8-10.8) x10^3/uL RBC 3.98 L (4.20-5.40) 10^6/uL Hgb 11.4 L (12.0-16.0) g/dL Hct 36.3 L (37.0-47.0) % MCV 91.2 (81.0-99.0) fL MCH 28.6 (27.0-31.0) pg MCHC 31.4 L (32.0-36.0) g/dL RDW 15.0 (12.0-15.0) % Plt Count 161 (130-450) 10^3/uL MPV 10.2 (7.9-10.8) fL Sodium 138 (135-145) mmol/L Potassium 4.3 4.3 (3.5-4.5) mmol/L Chloride 106 (101-111) mmol/L Carbon Dioxide 25 (21-32) mmol/L Anion Gap 7.0 (6-13) BUN 20 (6-20) mg/dL Creatinine 0.9 (0.6-1.3) mg/dL Estimated GFR (MDRD) 60 L (>89) Glucose 142 H (74-104) mg/dL Calcium 8.8 8.8 (8.5-10.3) mg/dL Phosphorus 3.6 (2.5-5.0) mg/dL Magnesium 2.1 (1.7-2.3) mg/dL Troponin I High Sens 142.5 H* (2.3-14.8) ng/L 05/06/24 Range/Units 18:40 WBC (4.8-10.8) x10^3/uL RBC (4.20-5.40) 10^6/uL Hgb (12.0-16.0) g/dL Hct (37.0-47.0) % MCV (81.0-99.0) fL MCH (27.0-31.0) pg MCHC (32.0-36.0) g/dL RDW (12.0-15.0) % Plt Count (130-450) 10^3/uL MPV (7.9-10.8) fL Sodium (135-145) mmol/L Potassium (3.5-4.5) mmol/L Chloride (101-111) mmol/L Carbon Dioxide (21-32) mmol/L Anion Gap (6-13) BUN (6-20) mg/dL Creatinine (0.6-1.3) mg/dL Estimated GFR (MDRD) (>89) Glucose (74-104) mg/dL Calcium (8.5-10.3) mg/dL Phosphorus (2.5-5.0) mg/dL Magnesium (1.7-2.3) mg/dL Troponin I High Sens 277.2 H* (2.3-14.8) ng/L Assessment/Plan Problem List (1) Acute respiratory failure with hypoxia: Impression: - Initial O2 sat 69% on RA placed on BiPAP. O2 sat increased to high 90's%. Titrate to NC 4-5lpm this AM. - ABG showing hypoxia, CO2 w/in limits - CXR shows hyperinflation w/ no obv consolidation. - Solu-medrol 40mg TID -> Prednisolone 40mg PO - Duo Neb - Tamiflu - Abx Ceftriaxone/ Azith (2) Influenza A: Impression: Positive (PCR) - Tamiflu 75mg ->30mg - Blood cultures ordered (3) COPD (chronic obstructive pulmonary disease): Impression: - management as above. Qualifiers: COPD type: unspecified COPD Qualified Code(s): J44.9 - Chronic obstructive pulmonary disease, unspecified (4) Lactic acidosis: Impression: Initial Lactate 3.0. Blood Cultures ordered. Resolved (5) Troponin level elevated: Impression: - Elevated Troponin 290 down trending 142 today. - Most likely due to demand ischemia - EKG Atrial pacemaker, no STEMI, no c/o chest pain. (6) Heart failure with recovered ejection fraction (HFrecEF): Impression: Heart Failure w/ recovered heart failure. - Atrial pacemaker. No defibrillator - Elevated Troponin 290 down trending 142 today - Continue home meds: - HLD - HTN
[2024-05-07] MEDS: FUROSEMIDE 40 MG/4 ML VIAL IVP ONE (18:13)
[2024-05-07] MEDS: QUEtiapine 25 MG TABLET PO SCH (20:39)
[2024-05-08 04:33] LABS: HCT - HEMATOCRIT 42.2 % (37.0-47.0); HGB - HEMOGLOBIN 12.9 g/dL (12.0-16.0); MEAN CORPUSCULAR HEMOGLOBIN 28.1 pg (27.0-31.0); MEAN CORPUSCULAR HGB CONC 30.6 g/dL (32.0-36.0); MEAN CORPUSCULAR VOLUME 91.9 fL (81.0-99.0); MEAN PLATELET VOLUME 10.3 fL (7.9-10.8); RED BLOOD COUNT 4.59 10^6/uL (4.20-5.40); RED CELL DISTRIBUTION WIDTH 15.1 % (12.0-15.0); WHITE BLOOD COUNT 15.6 x10^3/uL (4.8-10.8)
[2024-05-08 04:48] LABS: PHOSPHORUS 3.1 mg/dL (2.5-5.0)
[2024-05-08] MEDS: guaiFENesin/CODEINE 5 ML UDC PO PRN (04:49)
[2024-05-08 04:50] LABS: CALCIUM 9.4 mg/dL (8.5-10.3); POTASSIUM 4.8 mmol/L (3.5-4.5)
--- NOTE | 2024-05-08 04:58 | PROVIDER PROGRESS NOTE ---
Steam Conditioning Operator Note Steam Conditioning Operator Note Steam Conditioning Operator Note: Was notified by nurse concerning the following: "Pt. on Bipap and is very restless, pt. wish to be able to get some sleep. Pt. just feels miserable. Pt. had 25 mg Seroquel last night but that did not help. Pt. also keeps on coughing. Could she have something to help her relax and also something for sleep please. Thanks Pt. is panicking, i need something for her to relax please." Discussed with the nurse. Overnight patient had received requip, seroquel and zoloft, but did not get much sleep. She explained that a discussion was had with the primary attending about medicatoin for anxiety such as xanax or ativan,but orders for such were not placed. Order for Robitussin with codeine was added for cough. Due to her advanced age and respiratory status, did not feel comfortable adding benzodiazipines,which could have an adverse effect on her sensorium and mental status when given in combination with codeine. Therefore started patient on precedex, slow titration to see if that will assist in her anxiousness and agitation. Will continue to monitor closely. Current RASS +3, Goal RASS 0 to -1
[2024-05-08] MEDS: DEXMEDETOMIDINE 400 MCG/100 ML 100 ML IV PRN (05:01)
[2024-05-08 08:07] VITALS: TEMP 99.5
[2024-05-08] MEDS: FUROSEMIDE 40 MG/4 ML VIAL IVP SCH (09:10)
--- NOTE | 2024-05-08 10:02 | PROVIDER PROGRESS NOTE ---
Subjective Prog Note Date Prog Note Date: 05/08/24 Subjective Pt reports feeling: Worse Subjective: Chief Complaint: Progressive flu-like symptoms, including progressive cough and congestions for 3 days before admission. Mrs. Madison is an 83-year-old woman admitted to the ICU for evaluation and treatment of acute respiratory failure w/ hypoxia, COPD (unofficially diagnosed), and Influenza-A positive, displaying s/s for 3 days. The daughter states the patient has CHF. She has hx of HF w/ recovered EF and atrial pacemaker. She lives at an assisted living facility and was found in her residence with increased WOB. She was transported via EMS, where her initial O2 sat was low 70% on RA. In the ED, she was hypertensive and was given IV morphine and metoprolol. Subsequently, she became hypotensive, requiring vasopressors and IV fluids. She had elevated lactate 3.0 and troponin 290, possibly due to demand ischemia. EKG paced atrial rhythm w/ no STEMI. Blood cultures obtains-resulting /, R-positive for Strep/ L-NGTD. Yesterday, she appeared to be doing well and was placed on NC @ 4-5lpm, IV abx with ceftriaxone + azithromycin, steroids, Lasix, and duo neb treatment. Rodriguez was d/c'd, and IV steroids transitioned to PO prednisone. Overnight/ 24-Hour Events: Overnight into today, the patient, Mrs. Madison, experienced a significant decline in her condition, with an increase in oxygen needs. Her SpO2 levels ranged from 86% to 91%, necessitating the use of BiPAP and leading to heightened anxiety. She was started on a Dexmedetomidine drip, received Seroquel, and was given her usual dose of Sertraline, but these measures did not alleviate her anxiety. The FiO2 on the BiPAP was increased from 60% to 80%, allowing her SpO2 to stabilize in the mid-90s. Over the night, her urine output was approximately 2 liters. A lung sound assessment this morning revealed diffuse crackles, suggestive of bilateral pulmonary infiltrates, potentially indicating edema or infection as seen on the chest X-ray. Orders were placed for Lasix and a Rodriguez catheter. Haldol was also ordered to address the increase in her anxiety. Mrs. Madison made it clear that she did not wish to be intubated and confirmed her DNR-I status. Continual discussions were held with both of Mrs. Madison's daughters, who requested transport to a higher level of care. During these conversations, Mrs. Madison expressed her desire to officially transition to comfort care. Both daughters were on the phone along with the attending physician and bedside RN, who explained the status regarding comfort care and hospice options. Antibiotics Ceftriaxone 1g IV qDaily Azithromycin 500,g IV qDaily Lines PIVs Critical Care Checklist: F: Gen Diet A: PAD Analgesia protocol on, PRN Morphine, Ativan, Haldol S: PAD Sedation protocol: Dexmedetomidine drip T: DVT Protocol Active: Yes H: Aspiration Protocol Active: Yes, (HOB>30) U: Stress Ulcer Protocol Active: Yes, Protonix 40mg PO G: Glycemic control to goal glucose 140-180 CODE: Comfort Care, DNR-I Advanced care planning & counseling - We discussed the above plan with the patient and family at bedside and answered all questions. Current Medications Current Medications Current Medications: Current Medications Generic Name Dose Route Start Last Admin Trade Name Freq PRN Reason Stop Dose Admin Acetaminophen 640 mg 05/08/24 12:32 Acetaminophen 160 Mg/5 Ml Susp Udc PO Q4H PRN Fever >101 Albuterol/Ipratropium 3 ml 05/06/24 15:00 05/08/24 11:53 Ipratropium/Albuterol 3 Ml Neb INH 3 ml RTQID LUCIANA Administration Apixaban 5 mg 05/06/24 09:25 05/08/24 08:57 Apixaban 5 Mg Tablet PO 5 mg BID LUCIANA Administration Aspirin 81 mg 05/06/24 09:25 05/08/24 08:56 Aspirin Chew 81 Mg Tablet PO 81 mg DAILY LUCIANA Administration Atorvastatin Calcium 40 mg 05/06/24 21:00 05/07/24 20:39 Atorvastatin 40 Mg Tablet PO 40 mg QPM LUCIANA Administration Ceftriaxone Sodium 1 gm 05/07/24 09:00 05/08/24 09:42 Ceftriaxone 1 Gm Vial IVP 1 gm DAILY LUCIANA Administration Cholecalciferol 25 mcg 05/07/24 10:00 05/08/24 08:56 Cholecalciferol 25 Mcg Tablet PO 25 mcg DAILY LUCIANA Administration Furosemide 40 mg 05/08/24 09:00 05/08/24 09:10 Furosemide 40 Mg/4 Ml Vial IVP 40 mg DAILY LUCIANA Administration Guaifenesin/Codeine Phosphate 5 ml 05/08/24 04:27 05/08/24 04:49 Guaifenesin/Codeine 5 Ml Udc PO 5 ml Q8H PRN Administration Cough Azithromycin 500 mg/ Sodium 250 mls @ 250 mls/hr 05/07/24 09:00 05/08/24 10:15 Chloride IV Infused DAILY LUCIANA Infusion Dexmedetomidine/Sodium Chloride 100 mls @ 4.8 mls/hr 05/08/24 04:49 05/08/24 09:43 Precedex Premix IV 0.7 mcg/kg/hr .[id number] PRN 16.8 mls/hr Agitation Titration Protocol 0.2 MCG/KG/HR Morphine Sulfate 100 mg/ 100 mls @ 2 mls/hr 05/08/24 17:00 Sodium Chloride IV .Q50H LUCIANA Protocol 2 MG/HR Lorazepam 1 mg 05/08/24 14:20 05/08/24 15:43 Lorazepam 2 Mg/Ml Vial IVP 1 mg Q1HR PRN Administration Anxiety/Agitation Methylprednisolone 40 mg 05/08/24 10:37 05/08/24 13:11 Methylprednisolone Succinate 40 Mg/Ml Vial IVP Not Given TID LUCIANA Morphine Sulfate 2 mg 05/08/24 12:32 05/08/24 16:05 Morphine 2 Mg/Ml Carpuject IVP 2 mg Q2HR PRN Administration PAIN 1-4 Multivitamins/Minerals 1 tab 05/06/24 09:25 05/08/24 08:56 Multivitamin W/Minerals Tablet PO 1 tab DAILY LUCIANA Administration Nystatin 1 applic 05/06/24 21:00 05/08/24 09:42 Nystatin Powder 15 Gm TOP 1 applic BID LUCIANA Administration Ondansetron HCl 4 mg 05/08/24 12:32 Ondansetron 4 Mg/2 Ml Vial IVP Q8H PRN Nausea / Vomiting Oseltamivir Phosphate 30 mg 05/06/24 21:00 05/08/24 08:56 Oseltamivir 30 Mg Capsule PO 05/10/24 21:01 30 mg BID LUCIANA Administration Pantoprazole Sodium 40 mg 05/07/24 07:00 05/08/24 06:22 Pantoprazole 40 Mg Tablet PO 40 mg QDAC LUCIANA Administration Quetiapine Fumarate 25 mg 05/07/24 21:00 05/07/24 20:39 Quetiapine 25 Mg Tablet PO 25 mg QPM LUCIANA Administration Ropinirole HCl 0.5 mg 05/06/24 21:00 05/07/24 18:48 Ropinirole 0.25 Mg Tablet PO 0.5 mg HS LUCIANA Administration Sertraline HCl 50 mg 05/06/24 09:25 05/08/24 08:56 Sertraline 50 Mg Tablet PO 50 mg DAILY LUCIANA Administration Sodium Chloride 10 ml 05/06/24 09:25 05/08/24 09:42 Sodium Chloride Flush 0.9% 10 Ml Syringe IVP 10 ml 0100,0900,1700 LUCIANA Administration Sodium Chloride 10 ml 05/06/24 09:25 05/08/24 05:01 Sodium Chloride Flush 0.9% 10 Ml Syringe IVP 10 ml PRN PRN Administration NEEDED PER PROVIDER ORDERS Objective Vital Signs/Intake & Output Reviewed Vital Signs: Yes Vital Signs: Vital Signs Temp Pulse Pulse Resp Pulse Ox 05/08/24 12:00 37.5 C 69 23 94 05/08/24 11:49 69 37 H 05/08/24 11:49 68 Intake & Output: Intake & Output 05/05/24 05/06/24 05/07/24 05/08/24 23:59 23:59 23:59 23:59 Intake Total 2790 / 2790 800 / 800 1050 / 1050 Output Total 1832 / 1832 1436 / 1436 1450 / 1450 Balance 958 / 958 -636 / -636 -400 / -400 Weight (kg) 97.5 kg 96 kg 96 kg Objective General Appearance: positive Moderate distress, Severe distress and Anxious Eyes Bilateral: positive Normal inspection, PERRL and EOMI ENT: positive ENT inspection nml, Pharynx nml and No signs of dehydration Neck: positive Nml inspection, Thyroid nml, No JVD and Trachea midline Respiratory: positive Wheezes, Rales and Other (Expiratory wheezes, diffuse crackles and rales on ausc. ) Cardiovascular: positive Regular rate & rhythm (atrial paced) Abdomen: positive Non-tender and Nml bowel sounds Rectal: positive Other (deferred ) Back: positive Nml inspection Skin: positive Warm, Dry and Pallor Extremities: positive Non-tender, Full ROM and No pedal edema Neurologic/Psychiatric: positive Oriented x3, CN's nml (2-12), Motor nml, Sensation nml and Other (increasingly anxious) Lab Results 05/08/24 04:25 05/08/24 04:25 Other Labs: Lab Results x24hrs 05/08/24 Range/Units 04:25 WBC 15.6 H (4.8-10.8) x10^3/uL RBC 4.59 (4.20-5.40) 10^6/uL Hgb 12.9 (12.0-16.0) g/dL Hct 42.2 (37.0-47.0) % MCV 91.9 (81.0-99.0) fL MCH 28.1 (27.0-31.0) pg MCHC 30.6 L (32.0-36.0) g/dL RDW 15.1 H (12.0-15.0) % Plt Count 209 (130-450) 10^3/uL MPV 10.3 (7.9-10.8) fL Sodium 137 (135-145) mmol/L Potassium 4.8 H (3.5-4.5) mmol/L Chloride 100 L (101-111) mmol/L Carbon Dioxide 29 (21-32) mmol/L Anion Gap 8.0 (6-13) BUN 24 H (6-20) mg/dL Creatinine 1.0 (0.6-1.3) mg/dL Estimated GFR (MDRD) 53 L (>89) Glucose 111 H (74-104) mg/dL Calcium 9.4 (8.5-10.3) mg/dL Phosphorus 3.1 (2.5-5.0) mg/dL Magnesium 2.0 (1.7-2.3) mg/dL Assessment/Plan Problem List (1) Acute respiratory failure with hypoxia: Impression: Initial O2 sat 69% on RA placed on BiPAP ED-O2 sat increased to high 90's%. Titrated to NC 4-5lpm yesterday. BiPAP overnight due to decreased O2 sat and increase in O2 need. ABG showing hypoxia, CO2 w/in limits Repeat CXR today shows bilateral pulm edema vs infectious process Placed on comfort care-code status DNR-I D/c: Steroids, Duo Nebm Tamiflu, and Ceftriaxone + Azith Continue BiPAP, transition if able. (2) Influenza A: Impression: D/c Tamiflu Blood culture: Final-R staph pos, L-NGTD (3) COPD (chronic obstructive pulmonary disease): Impression: management as above Qualifiers: COPD type: unspecified COPD Qualified Code(s): J44.9 - Chronic obstructive pulmonary disease, unspecified (4) Lactic acidosis: Impression: Initial lactic acid 3.0 Blood culture: Final-R staph pos, L-NGTD (5) Troponin level elevated: Impression: - Elevated Troponin 290 down trending 142 yesterday. - Most likely due to demand ischemia - EKG Atrial pacemaker, no STEMI, no c/o chest pain. (6) Heart failure with recovered ejection fraction (HFrecEF): Impression: Atrial pacemaker. No defibrillator Elevated Troponin 290 down trending 142 yesterday D/c home meds due to comfort care status. HLD HTN
--- NOTE | 2024-05-08 10:35 | XRAY Report ---
PROCEDURE: XR Chest 1V INDICATIONS: Pneumonia TECHNIQUE: One view of the chest was acquired. COMPARISON: 06/04/2023 FINDINGS: Surgical changes and devices: Left-sided dual-chamber pacemaker. Overlying leads and wires. Lungs and pleura: Primarily and moderate vascular congestion. Underlying patchy pulmonary infiltrate s. Atherosclerotic vascular calcification noted in the aortic arch. Minimal blunting of both costophr enic angles. Mediastinum: Mediastinal contours appear normal. Heart size is enlarged. Bones and chest wall: No suspicious bony lesions. Overlying soft tissues appear unremarkable. IMPRESSION: Cardiomegaly, moderate vascular congestion and patchy bilateral pulmonary infiltrates reflecting nicholas a versus infection. Reviewed by: Roberto Thomas MD on 05/08/2024 9:34 AM [place] Approved by: Roberto Thomas MD on 05/08/2024 9:34 AM [facility] Station ID: [id number]
[2024-05-08 11:19] VITALS: BP 96/75
[2024-05-08] MEDS ORDERED: HALOPERIDOL 5 MG/ML VIAL IVP ONE (12:12)
[2024-05-08 12:14] VITALS: O2SAT 94
[2024-05-08] MEDS ORDERED: ACETAMINOPHEN 160 MG/5 ML SUSP UDC PO PRN (12:32)
[2024-05-08] MEDS ORDERED: ONDANSETRON 4 MG/2 ML VIAL IVP PRN (12:32)
[2024-05-08] MEDS: HALOPERIDOL 5 MG/ML VIAL IVP ONE (12:33)
[2024-05-08] MEDS: methylPREDNISolone SUCCINATE 40 MG/ML VIAL IVP SCH (12:33)
[2024-05-08] MEDS: MORPHINE 2 MG/ML CARPUJECT IVP PRN (13:11)
[2024-05-08] MEDS: LORazepam 2 MG/ML VIAL IVP PRN ×2 (13:11→15:43)
[2024-05-08] MEDS ORDERED: MORPHINE INJ 100 MG in SODIUM CHLORIDE 0.9% 100ML 90 ML IV SCH ×2 (16:00→17:00)
--- NOTE | 2024-05-08 18:46 | Discharge Summary ---
"Discharge Summary Admit Date: 05/06/24 Discharge Date: 05/08/24 Discharging Provider: Demario Patel MD Primary Care Provider: Philip Borrego Discharge Facility Name: Pt HPI History of Present Illness: Patient is a 83-year-old female with a history of COPD not on home oxygen, heart failure with recovered ejection fraction, cardiac pacemaker who presents after being found down at her assisted living facility. Per emergency room staff, daughter states that she has been having some cough and congestion for the last few days. She continued to have shortness of breath, and was found down at her assisted with saturations as low as the high 70s. She was placed on oxygen, and transported over. When she was brought over, her blood pressure was 214/93, respiratory rate was 28, pulse was 79, and she was afebrile, saturating 86% on nasal cannula. She was placed on BiPAP. She was also given 6 mg of morphine, 10 mg of IV Decadron, as well as some metoprolol, 5 mg. When patient was seen, she was hypotensive, blood pressures 85/56, heart rate was 60 and paced, respiratory rate was 18, and she was saturating 95% on BiPAP. She appeared comfortable. Chest x-ray was reviewed, and it does show some hyperinflation. No consolidations are seen. ABG was done after BiPAP had been on for a few hours, it showed a pH is 7.33, CO2 of 43, O2 of 96, O2 saturation of 97%. Sodium was 132, potassium was 3.9, as well as creatinine was 1.2. Lactic acid was elevated at 3. Her troponin was mildly elevated at 26.1. In the past it has been 33, as well as 27. Lipase was within normal limits respiratory viral panel was positive for influenza. EKG is ordered, but not completed. She was admitted for COPD exacerbation, community-acquired pneumonia, influenza, as well as hypoxic respiratory failure. CONSULTS | PROCEDURES Consultations: Certified Medical Assistant at [facility] COURSE Hospital Course: The patient is an 83-year-old female who was admitted in acute respiratory failure with hypoxia in the setting of influenza A, and presumed acute on chronic congestive heart failure, with some concern for possible underlying COPD.After arriving on 69% room air oxygen saturationShe required BiPAP for oxygen support. Initial chest x-ray showed hyperinflation but with no consolidations. She had wheezing on exam prompting concerns for COPD exacerbation and was started on Solu-Medrol 40 mg IV.She was also started on Tamiflu for influenza.She had elevated troponins that were thought to be likely secondary to demand ischemia in the setting of acute respiratory failure.Subsequently, she was also treated for presumed superimposed bacterial pneumonia and started on Rocephin and azithromycin. She was initially improving in the first 24 hours and was de-escalated to MedSurg status.However overnight between the evening of 05/07/2019 5 in the morning of 05/08/2024 the patient began to deteriorate again requiring BiPAP intermittently through the night. Her lung exam revealed bilateral crackles and auscultatory signs consistent with fluid overload. Family members were contacted including the patient's daughter who lives in [place] who was requesting a transfer to [facility] where she normally receives her cardiology care.Her other daughter who is here in person, Amber, also met with the care team. She was accepted for transfer and flight crew had arrived to leaf size picker the patient. And after evaluating the patient's deteriorating status, the patient, and her daughter Amber and other daughter in [place] determined that she would no longer like to pursue a transfer.After confirming with the patient Abby, her daughter Amber at the bedside, and her other daughter who was on the phone from [place], she expressed clearly, while alert and oriented x 3, and of sound mind, that pursuant to her previously expressed wishes of DO NOT INTUBATE and DO NOT RESUSCITATE, she would also like to further withdraw any further care and transition to a comfort care only treatment plan. This decision was made after careful explanation of the ramifications and meetings of comfort care including the addition of comfort providing medications that may ultimately hasten her . The patient voiced understanding of this and again confirmed her decision to proceed with comfort care, as did her daughter Amber who is at the bedside and in agreement. She was given initial treatment doses of IV morphine and Ativan, and gradually within a few hours the patient began to become more comfortable but with decreasing respiratory effort and blood pressures until she finally .Patient's time of was 1653 where she was surrounded by family and peacefully. ALLERGIES Allergies Allergy/AdvReac Type Severity Reaction Status Date / Time nitrofurantoin (From Allergy Rash Verified 05/06/24 06:41 Macrobid) nitroglycerin AdvReac Unknown severe Verified 05/06/24 06:41 hypotension MEDICATIONS Ambulatory Orders Medication Instructions Recorded Confirmed rosuvastatin 20 mg tablet (Crestor) 20 mg PO DAILY 06/05/21 05/06/24 ropinirole 0.5 mg tablet 0.5 mg PO HS 11/26/21 05/06/24 cyclobenzaprine 10 mg tablet 10 mg PO TID PRN muscle spasm 12/06/21 05/06/24 cranberry extract 500 mg tablet 1 tab PO DAILY 07/05/22 05/06/24 [id number]-[id number] 1 tab PO DAILY 07/05/22 05/06/24 fumarate 19 mg-folic acid 400 mcg tablet (Therapeutic-M) pregabalin 50 mg capsule 150 mg PO BID 07/05/22 05/06/24 atenolol 25 mg tablet 1 tab PO DAILY 06/09/23 05/06/24 cholecalciferol (vitamin D3) 25 25 mcg PO DAILY 03/03/24 05/06/24 mcg (1,000 unit) capsule collagen,hydrolysate 500 mg-biotin 1 cap PO DAILY 03/03/24 05/06/24 800 mcg-ascorbic acid 50 mg capsule (Collagen 1500 Plus C) lisinopril 10 mg tablet 10 mg PO DAILY 03/03/24 05/06/24 sertraline 50 mg tablet 100 mg PO DAILY 03/03/24 05/06/24 tramadol 50 mg tablet 50 mg PO BID PRN pain 03/03/24 05/06/24 apixaban 5 mg tablet (Eliquis) 5 mg PO BID 03/04/24 05/06/24 pantoprazole 40 mg tablet,delayed 40 mg PO QDAC 30 days #30 tabs 03/07/24 05/06/24 release furosemide 20 mg tablet 20 mg PO DAILY 05/06/24 05/06/24 potassium chloride 10 mEq 10 meq PO DAILY 05/06/24 05/06/24 tablet,extended release(part/cryst) LABS 05/08/24 04:25 05/08/24 04:25 TIME SPENT Time Spent in Discharge (Minutes): 95 Discharge Plan Discharge Condition: Fair Prescriptions: No Action rosuvastatin [Crestor] 20 MG tablet 20 mg PO DAILY ropinirole 0.5 MG tablet 0.5 mg PO HS cyclobenzaprine 10 MG tablet 10 mg PO TID PRN (Reason: muscle spasm) pregabalin 50 MG capsule 150 mg PO BID cranberry extract 500 MG tablet 1 tab PO DAILY Therapeutic-M 1 TAB tablet 1 tab PO DAILY atenolol 25 MG tablet 1 tab PO DAILY cholecalciferol (vitamin D3) 25 mcg (1,000 unit) capsule 25 mcg PO DAILY Collagen 1500 Plus C 500 mg-800 mcg- 50 mg capsule 1 cap PO DAILY sertraline 50 mg tablet 100 mg PO DAILY tramadol 50 mg tablet 50 mg PO BID PRN (Reason: pain) lisinopril 10 MG tablet 10 mg PO DAILY Eliquis 5 mg tablet 5 mg PO BID pantoprazole 40 mg Tablet,Delayed Release (Dr/Ec) 40 mg PO QDAC 30 Days Qty: 30 0RF furosemide 20 mg tablet 20 mg PO DAILY potassium chloride 10 mEq tablet,ER particles/crystals 10 meq PO DAILY Print Language: Serbian Stand Alone Forms: PCP List Follow-up Care: ABBIE BORREGO MD [Primary Care Provider] -"
== END 2024-05-08 16:54 | disposition expired | DRG 189 ==
LOC: ED 06:30 → ICU 09:18
PROVIDERS: ADMIT Internal Medicine; ATTEND Internal Medicine
DX: I50.33 Acute on chronic diastolic (congestive) heart failure; J18.9 Pneumonia, unspecified organism; Z66 Do not resuscitate; E78.5 Hyperlipidemia, unspecified; G89.4 Chronic pain syndrome; E87.20 Acidosis, unspecified; Z51.5 Encounter for palliative care; F41.9 Anxiety disorder, unspecified; J44.0 Chronic obstructive pulmonary disease with (acute) lower respiratory infection; J10.08 Influenza due to other identified influenza virus with other specified pneumonia; I11.0 Hypertensive heart disease with heart failure; I50.9 Heart failure, unspecified; I24.89 Other forms of acute ischemic heart disease; J12.9 Viral pneumonia, unspecified; J15.9 Unspecified bacterial pneumonia; I95.9 Hypotension, unspecified; J96.01 Acute respiratory failure with hypoxia; Z87.891 Personal history of nicotine dependence; J44.1 Chronic obstructive pulmonary disease with (acute) exacerbation; Z95.0 Presence of cardiac pacemaker